=== PATIENT | female | born 1955 | race Caucasian/White ===

== ENCOUNTER 2024-06-18 07:49 | Outpatient (AMB) | payer MEDICARE, SELFPAY ==
--- OUTSIDE RECORDS SUMMARY | 2024-06-18 07:52 | XMS_ITS ---
Author Organization [facility] Address [address] [address] Care Team Providers Care Bottle Selector Name Role Phone Sadaf Buckley Primary Care Provider SKYE Lee Unavailable [phone] Allergies Allergen (clinical drug ingredient) Drug/Non Drug Allergy documented on EMR Reaction Allergy Type Onset Date Status cephalexin Cephalexin Unknown Drug Allergy Activ e Substance with 7-rgiegkw-6-methylgluta ryl-coenzyme A reductase inhibitor mechanism of action (substance) Statins Unknown Drug Allergy Active REASON FOR VISIT annual diabetic follow up Medications Medication SIG (Take, Route, Frequency, Duration) Notes Start Date End Date Status Januvia 100 MG 1 tablet Orally Once a day Not-Taking Levothyroxine Sodium 25 MCG 1 tablet in the morning on an empty stomach Orally Once a day Active Ibuprofen 400 MG 1 tablet with food o r milk as needed Orally every 8 hr prn Active Calcium Active Trulicity 0.75 MG/0.5ML as directed Subcutaneous Active metFORMIN HCl 500 MG 1 tablet with a evan l Orally 3 times daily Active Lisinopril 20 MG 1 tablet Orally Once a day Active Vital Signs Temperature 96.9 degrees Fahrenheit 07/20/19 Heart Rate 84 /min 07/20/2023 Respiratory Rate 20 /min 07/20/2023 Height 5ft 4.5in in 07/20/2023 Weight 224.9 lbs 07/20/2023 BMI 38 kg/m2 07/20/2023 Encounters Encounter Location Date Provider Diagnosis [facility] [address] [address] 07/20/2023 SKYE LAI Type 2 diabetes mellitus with other specified complication E11.69 ; Obesity, unspecified E66.9 ; Flat foot [pes planus] (acquired), right foot M21.41 ; Flat foot [pes planus] (acquired), left foot M21.42 and Fissured skin R23.4 Assessments Encounter Date Diagnosis (ICD Code) Assessment Notes Treatment Notes Treatment Clinical Notes Section Notes 07/20/2023 Type 2 diabetes mellitus with other specified complication (ICD-10 - E11.69) We discussed her annual diabetic check. She has no change in her vascular or neurological status. Discussed with patient regarding proper glucose control, exercise, and diet. Explained to patient proper shoe gear, and importance of daily foot checks. I reviewed neuropathy and why it occurs in diabetics. I educated the patient on proper blood sugar control and the importance of [id number] of less than 7.0%. I reviewed the signs and symptoms of neuropathy with the patient. She has left leg swelling, currently following with vascular surgery. We discussed compression stockings, EVLT procedures, and vein stripping. 07/20/2023 Obesity, unspecified (ICD-10 - E66.9) 07/20/2023 Flat foot [pes planus] (acquired), right foot (ICD-10 - M21.41) We discussed she has no evidence of tendinitis or joint inflammation. She does have a flexible pes planus deformity. We discussed with lack of support, there is tightness in the mornings. Stretching in the mornings is beneficial, and choosing appropriate shoe gear. Reviewed stretching and icing exercises with the patient, handout dispensed, and patient instructed to perform twice daily. Discussed proper shoe gear with the patient. Patient to follow-up in 1 year. 07/20/2023 Flat foot [pes planus] (acquired), left foot (ICD-10 - M21.42) 07/20/2023 Fissured skin (ICD-10 - R23.4) I recommended urea 40% cream for the heels to avoid cracks and fissures. She is in agreement with this plan. Plan Of Treatment Treatment Notes Assessment Notes Fissured skin I recommended urea 4 0% cream for the heels to avoid cracks and fissures. She is in agreement with this plan. Next Appt Details Follow Up: 1 Year, Reason: Provider Name:SKYE LAI, 07/23/2024 10:00:00 AM, [address] [facility] [address], [place], [address], Progress Notes * Nhung HERNANDEZDOB: [birth year] (67 yo F)Acc No.[id number]:07/20/2023 Progress Note Patient:?Nhung HERNANDEZ Provider:?Skye Lai DPM :1955???Age:67 Y???Sex:Female D ate:07/20/2023 Phone: Address:[facility] [address] [id number] Pcp:Sadaf Buckley Subjective: * Chief Complaints: * ???Annual diabetic follow up * HPI: ???Constitutional:? This 67 y/o female returns to my office for a diabetic foot evaluation. She relates aching and soreness in her feet daily. She has flat feet. She notes that she has stopped wearing flip-flops which has helped with the foot soreness. She states it feels worse in the morning. She denies any numbness or tingling in her toes. She does get dry skin over the winter, and admits there were some fissures of the heels. She has been using the cream when this happens and has been soaking the feet occasionally. She has no other foot complaints this visit. Her last hgba1c was 7.6. Her last visit with her PCP care team for diabetes management was last week. Allergies and medical history reviewed. * ROS:?GENERAL: Pt denies nausea, fever, vomiting, chills, or shortness of breath. Pt in NAD. ALLERGY: patient denies any new allergy HEME/ONC: patient denies any bleeding or clotting disorders CARDIOLOGY: pt denies chest pain, palpitations LUNGS: pt denies shortness of breath ABDOMEN: patient denies any bloating, abdominal pain, or swelling MUSCULOSKELETAL: See HPI, otherwise no joint pain or swelling, back pain, or muscle pain. SKIN: see HPI, otherwise no lesions, rash or itching NEURO: No persistent headache, weakness or numbness PSYCH: patient denies any current anxiety or depression The remainder of the review of systems is noncontributory. * Medical History:? * Surgical History:?bx breast; perc needle core w/imag guid neg hx colonoscopy 13 mm sigmoid colon polyp:tubular adenoma 01/29/2009hx knee surgery scope left knee 2011Historical knee surgery scope 12/2015 * Hospitalization/Major Diagno stic Procedure:?vaginal delivery (boy) 1976kidney/bladder infection as a child * Family History:?Father: hear t disease.?Maternal Grand Mother: diabetes mellitus.?Siblings: 2 brothers- heart diseasebrother-kidney and throat cancerbrother- colon cancer.?1 son(s) . .? * Social History:?Tobacco: no Alcohol: no. * Medications:?TakingTrulicity 0.75 MG/0.5ML Solution Pen-injector as directed Subcutaneous Calcium Ibuprofen 400 MG Tablet 1 tablet with food or milk as needed Orally every 8 hr prn Levothyroxine Sodium 25 MCG Tablet 1 tablet in the morning on an empty stomach Orally Once a day Lisinopril 20 MG Tablet 1 tablet Orally Once a day metFORMIN HCl 500 MG Tablet 1 tablet with a meal Orally 3 times daily Taking Trulicity 0.75 MG/0.5ML Solution Pen-injector as directed Subcutaneous Taking Calcium Taking Ibuprofen 400 MG Tablet 1 tablet with food or milk as needed Orally every 8 hr prn Taking Levothyroxine Sodium 25 MCG Tablet 1 tablet in the morning on an empty stomach Orally Once a day Taking Lisinopril 20 MG Tablet 1 tablet Orally Once a day Taking metFORMIN HCl 500 MG Tablet 1 tablet with a meal Orally 3 times daily Not-TakingJanuvia 100 MG Tablet 1 tablet Orally Once a day Medication List reviewed and reconciled with the patientNot-Taking Januvia 100 MG Tablet 1 tablet Orally Once a day Medication List reviewed and reconciled with the patient * Allergies:?CephalexinStatins no[Allergies Verified] Objective: * Vitals:?Wt:224.9lbs, Ht: 5ft 4.5in, BMI:38Index, HR:84/min, Temp:96.9F, RR:20/min, Ht-cm: 163.83, Wt-k.01 kg. * Examination: ???General Examination: ???GENERAL: Patient appears well nourished, with NAD. ?VASCULAR: Dorsalis pedis pulses are 2/4 bilaterally and Posterior tibial pulses are 1/4 bilaterally. Capillary filling time within normal limits the digits. No pallor on elevation or rubor on dependency. Positive hair growth. Varicosities of the legs. Left leg swelling. Denies rest pain or claudication pain. Each foot temperature is within normal limits. ?NEUROLOGICAL: Sharp/dull sensation intact bilaterally, protective sensation intact 10/10 with 5.07 [place] Jennifer bilaterally, vibratory sensation with tuning fork intact to the tibial tuberosity bilaterally, position sense intact bilaterally to the tibial tuberosity. ?ORTHOPEDIC: Good muscle strength 4+/5 of all flexors and extensors. Dorsi flexion of ankle ,0 degrees, plantar flexion WNL. No muscle atrophy. Mild tenderness on palpation along the plantar central arch bilaterally. No pain on dorsiflexion or plantarflexion. ?DERMATOLOGICAL: No masses, openings, or skin lesions noted. Normal skin temperature, normal skin turgor. ?BIOMECHANICS: STJ ROM limited, MTJ ROM limited, 1st MPJ ROM limited. ?SHOES: sneakers. Assessment: * Assessment: 1.?Type 2 diabetes mellitus with other specified complication - E11.69 (Primary)?2.?Obesity, unspecified - E66.9?3.?Flat foot [pes planus] (acquired), right foot - M21.41 4.?Flat foot [pes planus] (acquired), left foot - M21.42?5.?Fissured skin - R23.4? Plan: * Treatment: 2.?Flat foot [pes planus] (a cquired), right foot? Clinical Notes: We discussed she has no evidence of tendinitis or joint inflammation. She does have a flexible pes planus deformity. We discussed with lack of support, there is tightness in the mornings. Stretching in the mornings is beneficial, and choosing appropriate shoe gear. Reviewed stretching and icing exercises with the patient, handout dispensed, and patient instructed to perform twice daily. Discussed proper shoe gear with the patient. Patient to follow-up in 1 year.?? 3.?Fissured skin? Notes: I recommended urea 40% cream for the heels to avoid cracks and fissures. She is in agreement with this plan. ?? * Procedure Codes:? * Follow Up:?1 Year * Billing Information: * Visit Code:? 58073 Office Visit, Est Pt., Level 3. * Procedure Codes:? * Sign off status: Completed true * Provider:Roberta Lai DPM Date:? 07/20/2023 Generated for Fani delaney/Megan/eTransmitting on:?06/18/2024 07:52 AM EDT History and Physical Notes * HPI (History of Present Illness) Category Sub-Category Detail Notes Category Not es Constitutional This 67 y/o f kane returns to my office for a diabetic foot evaluation. She relates aching and soreness in her feet daily. She has flat feet. She notes that she has stopped wearing flip-flops which has helped with the foot soreness. She states it feels worse in the morning. She denies any numbness or tingling in her toes. She does get dry skin over the winter, and admits there were some fissures of the heels. She has been using the cream when this happens and has been soaking the feet occasionally. She has no other foot complaints this visit. Her last hgba1c was 7.6. Her last visit with her PCP care team for diabetes management was last week. Allergies and medical history reviewed. Examination Category Sub-Category Detail Notes Category Not es General Examination GENERAL: Patient appears well nourished, with NAD. VASCULAR: Dorsalis pedis pulses are 2/4 bilaterally and Posterior tibial pulses are 1/4 bilaterally. Capillary filling time within normal limits the digits. No pallor on elevation or rubor on dependency. Positive hair growth. Varicosities of the legs. Left leg swelling. Denies rest pain or claudication pain. Each foot temperature is within normal limits. NEUROLOGICAL: Sharp/dull sensation intact bilaterally, protective sensation intact 10/10 with 5.07 [place] Jennifer bilaterally, vibratory sensation with tuning fork intact to the tibial tuberosity bilaterally, position sense intact bilaterally to the tibial tuberosity. ORTHOPEDIC: Good muscle strength 4+/5 of all flexors and extensors. Dorsi flexion of ankle ,0 degrees, plantar flexion WNL. No muscle atrophy. Mild tenderness on palpation along the plantar central arch bilaterally. No pain on dorsiflexion or plantarflexion. DERMATOLOGICAL: No masses, openings, or skin lesions noted. Normal skin temperature, normal skin turgor. BIOMECHANICS: STJ ROM limited, MTJ ROM limited, 1st MPJ ROM limited. SHOES: sneakers
--- OUTSIDE RECORDS SUMMARY | 2024-06-18 07:52 | XMS_ITS | Clinical Summary ---
Author Organization [facility] [address] [facility] Address [address] [facility] [place] [address] Phone Care Team Providers Care Pocket Cutter Name Role Phone Sadaf Buckley MD Primary Care Provider [phone] Allergies Active Allergy Reactions Criticality Noted Date Comments Atorvastatin Low 08/10/2023 Reflux, severe Cephalexin Nausea And Vomiting 10/18/2006 Sensitivity with this medication. Cqhbzsm-Ikp-Uup Reductase Inhibitors 09/14/2017 Elevated LFTS Medications nystatin-triamc inolone (MYCOLOG II) ointment Apply a thin layer to affected area twice weekly 09/18/2023 Active FREESTYLE LANCETS MISC Test blood sugar once daily E11.9 12/13/2022 Active blood sugar diagnostic (FreeStyle Lite Strips) test strip Test blood sugar once daily E11.9 12/13/2022 Active ibuprofen (ADVIL,MOTRIN) 400 mg tablet Take 1 Tablet by mouth every 8 hours as needed. Active calcium carbonate/vitam in D3 (CALCIUM + D ORAL) Take 2,000 mg by mouth daily. Active levothyroxine (SYNTHROID, LEVOTHROID) 25 mcg tablet Take 1 tablet (25 mcg total) by mouth 1 (one) time each day. 90 tablet 1 01/17/2024 Active lisinopriL (PRINIVIL,ZESTR IL) 20 mg tablet Take 1 tablet (20 mg total) by mouth 1 (one) time each day. 90 tablet 1 01/17/2024 Active metFORMIN (GLUCOPHAGE) 500 mg tablet Take 1 tablet (500 mg total) by mouth 1 (one) time each day with breakfast. 02/11/2024 Active dulaglutide (TRULICITY) 3 mg/0.5 mL pen injector injectionIndica tions:Type 2 diabetes mellitus with obesity ([facility] V24, [facility] V28) Inject 0.5 mL (3 mg total) under the skin every 7 (seven) days. 6 mL 1 04/24/2024 Active Active Problems Problem Noted Date Diagnosed Date Osteopenia 02/20/2023 Severe obesity (BMI 35.0-35. 9 with comorbidity) ([facility] V24, [facility] V28) 03/06/2019 Lichen sclerosus 08/13/2018 Overview (12/06/2023): Last Assessment & Plan: Reviewed findings with patient. Overall well controlled. Could be starting to develop a fissure in right ILS. She was encouraged to pay close attention there and use a skin barrier when working in the yard to avoid irritation and worsening skin. She agreed. Type 2 diabetes mellitus wit h obesity ([facility] V24, [facility] V28) 09/14/2017 Polycystic liver disease 06/20/2014 Degenerative disc disease, lumbar 05/18/2014 Compression fracture of T12 vertebra ([facility] V24, [facility] V28) 04/13/2014 Sciatica 12/03/2012 Overview (12/06/2023): Herniated L4-5 disc on left, MRI, 11/14/2012 Nuclear sclerosis 04/17/2011 Overview (12/06/2023): Noted by Dr. Oliveira on 10/21/2010 exam. Hyperlipidemia 01/04/2009 Hypertension 04/25/2005 Hypothyroidism 04/25/2005 Overview (12/06/2023): Hyperthyroidism, ablated with 22.8 mCi of iodine-131 on 12/29/2009 Encounters Date Type Department Care Team Description 05/20/2024 8:20 AM EDT Office Visit Endocrinology [address] [phone] Cami Dennis PA Type 2 diabetes mellitus with obesity ([facility] V24, [facility] V28) (Primary Dx); Postablative hypothyroidism; Hyperlipidemia, unspecified hyperlipidemia type; Primary hypertension from Last 3 Months Immunizations Name Administration Dates Next Due COVID-19 (Moderna/Spikevax) 12yo and older 2021 Influenza Quadravalent, MDCK , 0.5ml, preservative free (Flucelvax) 6mo and older 03/06/2019,01/09/2018 Influenza Quadravalent, MDCK , 0.5ml, with preservative (Flucelvax) 6mo and older 01/04/2017 Influenza trivalent, 0.5mL ( Fluzone High-dose) 65yo and older 02/20/2023,12/06/2021,01/12/2021 Influenza trivalent, with pr eservative (Fluzone; Afluria) 6mo and older 12/20/2015,12/20/2015,12/14/2014,12/14,12/10/2013,12/10/2013,12/03/2012 ,12/03/2012,11/27/2011,11/27/2011,10/28 ,11/15/2010,03/19/2009, 0 Pfizer (ages 12 & older) Biv alent, COVID-19 2021 Pfizer (ages 12 & older) MORTEZA S-CoV-2 COVID-19, mRNA, LNP-S, raz-sucrose, preservative free 06/21/2021 Pfizer SARS-CoV-2 COVID-19, mRNA, LNP-S, preservative free 06/21/2021 Pneumococcal conjugate 13 va lent (Prevnar 13, PCV13) 2mo and older 06/12/2019 Pneumococcal polysaccharide 23 valent (Pneumovax 23) 2yo and older 08/18/2022,10/16/2007 Td Tetanus diptheria (Tdvax) 7yo and older 04/19/2022,04/25/2005 Td Tetanus diptheria, preser vative free (Tenivac) 7yo and older 04/19/2022 Tdap Tetanus diptheria acell ular pertussis (Boostrix; Adacel) 7yo and older 04/01/2012 Zoster Live 08/12/2015,08/12/2015 Zoster recombinant (Shingrix ) 19yo and older 09/11/2021,07/12/2021 Surgical History Surgery Date Site/Laterality Comments COLONOSCOPY 01/29/2009 PROCEDURE: HISTORICAL COLONOSCOPY; COMMENT: 13 mm sigmoid colon polyp: Tubular adenoma KNEE SURGERY 2011 PROCEDURE: HISTORICAL KNEE SURGERY; COMMENT: scope l knee COLONOSCOPY 03/08/2012 PROCEDURE: HISTORICAL COLONOSCOPY; COMMENT: no polyps KNEE SURGERY 12/2015 Left PROCEDURE: HISTORICAL KNEE SURGERY; COMMENT: scope COLONOSCOPY 08/23/2017 PROCEDURE: HISTORICAL COLONOSCOPY; COMMENT: no polyps BREAST BIOPSY PROCEDURE: BX BREAST; PERC NEEDLE CORE W/IMAG GUID; COMMENT: neg Medical History Medical History Date Comments Type II or unspecified type diabetes mellitus with unspecified complication, not stated as uncontrolled DX:Type II or unspecified ty pe diabetes mellitus with unspecified complication, not stated as uncontrolled Heart disease, unspecified DX:He art disease, unspecified Unspecified essential hypertension DX:Unspecified essential hypertension Unspecified disorder of thyroid DX:Unspecified disorder of thyroid History of colon polyps 01/29/2009 DX:Histo ry of colon polyps; COMMENT: 13-mm sigmoid colon polyp removed at colonoscopy 01/29/2009: Tubular adenoma. Negative colonoscopy 03/08/2012, no colon cancer screening needed for 5 years. Family History Medical History Relation Name Comments Colon cancer Brother 1 Emmanuel s/p CVA age 71 Coronary artery disease Brother 2 Eleazar pace maker Coronary artery disease Brother 3 Constantine s/p 2 stents Throat cancer Brother 4 Merval and renal canc er; non-smoker Esophageal cancer Father CABG Half-Brother quintruple bypa ss Diabetes Maternal Grandmother Stroke Mother dementia Breast cancer Mother's side great GM Relation Name Status Comments Brother 1 Emmanuel (Age 71) Brother 2 Eleazar Alive Brother 3 Constantine Alive Brother 4 Merval Alive Father Half-Brother Maternal Grandfather Maternal Grandmother Mother Mother's side great GM Paternal Grandfather Paternal Grandmother Social History Tobacco Use Types Packs/Day Years Used Date Smoking Tobacco: Former Cigarettes 1.5 20.2 1 - 02/26/1995 Smokeless Tobacco: Never Tobacco Cessation:Counseling Given: Not Answered Alcohol Use Standard Drinks/Week Comments No 0 (1 standard drink = 0.6 oz pur e alcohol) Comments Unknown Sex and Gender Information Value Date Recorded Sex Assigned at Not on file Legal Sex Female 11:21 AM EST Gender Identity Not on file Sexual Orientation Not on file Obstetrics History Last Filed Vital Signs Vital Sign Reading Time Taken Comments Blood Pressure 116/48 02/11/2024 8:54 AM EST Pulse 84 05/20/2024 8:17 AM EDT Temperature 35.8 ??C (96.4 ??F) 05/20/2024 8:17 AM ED T Respiratory Rate 16 02/11/2024 8:54 AM EST Oxygen Saturation 95% 05/20/2024 8:17 AM EDT Inhaled Oxygen Concentration - - Weight 94.3 kg (207 lb 12.8 oz) 05/20/2024 8:17 AM EDT Height 165.1 cm (5' 5 ) 05/20/2024 8:17 AM EDT Body Mass Index 34.58 05/20/2024 8:17 AM EDT Plan of Treatment Upcoming Encounters Date Type Department Care Team (Late st Contact Info) Description 08/12/2024 8:15 AM EDT Office Visit [facility] - [address] [phone] Sadaf Buckley MD [address] [place] [address] 11/14/2024 7:30 AM EDT Appointment Radiology Department - [address] [phone] 12/19/2024 8:20 AM EDT Office Visit Endocrinology - [address] [phone] Cami Dennis PA [address] [place] [address] Health Maintenance Due Date Last Done Comments RSV Immunization Adult Patients (1 - Risk 60-74 years 1-dose series) 2013 Social Influencers of Health Screening 02/04/2022 COVID-19 Vaccine ( season) 2023 12/16/2022, 2021, 2021, Additional history exists Falls Risk Assessment 02/21/2024 02/20/2023 Depression Screening 08/09/2024 08/10/2023 Medicare Annual Wellness Visit 08/09/2024 08/10/2023 Colorectal Cancer Screening: Colonoscopy 08/23/2024 08/23/2017 Diabetes: Annual Urine Albumin-Creatinine Ratio (uACR) 10/10/2024 10/11/2023 Diabetes: Annual Retina Eye Exam 10/10/2024 10/11/2023 Diabetes: Annual Foot Exam 10/16/2024 10/17/2023 Influenza Vaccine (Season Ended) 2024 02/20/2023, 12/06/2021, 01/12/2021, Additional history exists Diabetes: Blood Sugar Control Test (HGBA1C) 11/16/2024 05/16/2024, 01/17/2024, 10/11/2023, Additional history exists Diabetes: Annual GFR (Glomerular Filtration Rate) 05/16/2025 05/16/2024, 10/11/2023, 10/11/2023 Hypertension/CHF/CAD Annual BMP Blood Test 05/16/2025 05/16/2024, 10/11/2023, 10/11/2023 Breast Cancer Screening 11/07/2025 11/08/19 24, 11/08/2023, 11/01/2022, Additional history exists Cholesterol Screening (Lipid Panel) 05/16/2029 05/16/2024, 02/21/2023 Osteoporosis Screening (Bone Density Screening) 12/30/2030 12/30/2020 DTaP,Tdap,and Td Vaccines (5 - Td or Tdap) 04/19/2032 04/19/2022, 04/19/2022, 04/01/2012, Additional history exists Hepatitis C Screening Completed 08/01/2012 Zoster Vaccines Completed 09/11/2021, 06/26, 08/12/2015, Additional history exists Pneumococcal Vaccine: 50+ Years Completed 08/18/2022, 06/12/2019, 10/16/2007 HIB Vaccines Aged Out No longer eligi ble based on patient's age to complete this topic HPV Vaccines Aged Out No longer eligi ble based on patient's age to complete this topic Hepatitis A Vaccines Aged Out No long er eligible based on patient's age to complete this topic Hepatitis B Vaccines Aged Out No long er eligible based on patient's age to complete this topic IPV Vaccines Aged Out No longer eligi ble based on patient's age to complete this topic MMR Vaccines Aged Out No longer eligi ble based on patient's age to complete this topic Meningococcal ACWY Vaccine Aged Out N o longer eligible based on patient's age to complete this topic Meningococcal B Vaccine Aged Out No l onger eligible based on patient's age to complete this topic RSV Immunization Patients Under 20 months Aged Out No longer eligible based on patient's age to complete this topic Varicella Vaccines Aged Out No longer eligible based on patient's age to complete this topic Procedures Procedure Name Priority Date/Time Associated Diagnosis Comments HEMOGLOBIN A1C Routine 05/16/2024 8:33 AM EDT Type 2 diabetes mellitus with obesity ([facility] V24, [facility] V28) LIPID PANEL WITH REFLEX TO DIRECT LDL Routine 05/16/2024 8:33 AM EDT Hyperlipidemia, unspecified hyperlipidemia type BASIC METABOLIC PANEL Routine 05/16/2024 8:33 AM EDT Primary hypertension SCREENING MAMMOGRAPHY BI 2-VIEW BREAST INC CAD Routine 11/08/2023 7:54 AM EDT Encounter for screening mammogram for malignant neoplasm of breast DIABETES FOOT EXAM Routine 10/17/2023 URINE ALBUMIN CREATININE RATIO Routine 10/11/2023 DEPRESSION SCREENING Routine 08/10/2023 FALLS RISK ASSESSMENT Routine 02/20/2023 DXA BONE DENSITY STUDY 1+ SITS AXIAL SKEL Routine 12/30/2020 9:36 AM EDT Asymptomatic menopausal state COLONOSCOPY Routine 08/23/2017 HEPATITIS C SCREENING Routine 08/01/2012 from Last 3 Months or Most Recently Relevant to Health Maintenance Results * (ABNORMAL) Lipid panel with reflex to direct LDL (05/16/2024 8:33 AM EDT) Cholesterol 226(H) 0 - 200 mg/dL LAB CHEMISTRY METHOD 05/16/2024 10:45 AM EDT [facility] Triglycerides 121 0 - 150 mg/dL LAB CHEMISTRY METHOD 05/16/2024 10:45 AM EDT [facility] HDL 67 >=40 mg/dL LAB CHEMISTRY METHOD 05/16/2024 10:45 AM EDT [facility] LDL Calculated 135(H) 0 - 100 mg/dL LAB CHEMISTRY METHOD 05/16/2024 10:45 AM EDT [facility] VLDL Cholesterol Brian 24.2 mg/dL LAB CHEMISTRY METHOD 05/16/2024 10:45 AM EDT [facility] Non HDL Chol. (LDL+VLDL) 159(H) <145 mg/dL LAB CHEMISTRY METHOD 05/16/2024 10:45 AM EDT [facility] Chol/HDL Ratio 3.4 0.0 - 4.4 LAB CHEMISTRY METHOD 05/16/2024 10:45 AM T [facility] Blood Venous blood specimen / Unknown Venipuncture / Unknown 05/16/2024 8:33 AM EDT 05/16/2024 8:33 AM EDT us Cami NATHAN LAB BLOOD ORDERABLES Final Resul t [facility] [address] [place] [address], * (ABNORMAL) Hemoglobin A1c (05/16/2024 8:33 AM EDT) Hemoglobin A1C 7.0(H) <6.5 % LAB CHEMISTRY METHOD 05/16/2024 11:17 AM EDT [facility] Mean Bld Glu Estim. 154 mg/dL LAB CHEMISTRY METHOD 05/16/2024 11:17 AM [facility] Blood Venous blood specimen / Unknown Venipuncture / Unknown 05/16/2024 8:33 AM EDT 05/16/2024 8:33 AM EDT us Cami NATHAN LAB BLOOD ORDERABLES Final Resul t [facility] [address] [place] [address], [place] [phone] * (ABNORMAL) Basic metabolic panel (05/16/2024 8:33 AM EDT) Sodium 140 133 - 145 mmol/L LAB CHEMISTRY METHOD 05/16/2024 10:44 AM [facility] Potassium 4.8 3.5 - 5.5 mmol/L LAB CHEMISTRY METHOD 05/16/2024 10:44 AM [facility] Chloride 104 96 - 110 mmol/L LAB CHEMISTRY METHOD 05/16/2024 10:44 AM [facility] CO2 30 21 - 32 mmol/L LAB CHEMISTRY METHOD 05/16/2024 10:44 AM [facility] Anion Gap 6 3 - 11 LAB CHEMISTRY METHOD 05/16/2024 10:44 AM [facility] Glucose 118(H) 70 - 100 mg/dL LAB CHEMISTRY METHOD 05/16/2024 10:44 AM [facility] BUN 12 5 - 25 mg/dL LAB CHEMISTRY METHOD 05/16/2024 10:44 AM [facility] Creatinine 0.60 0.50 - 1.10 mg/dL LAB CHEMISTRY METHOD 05/16/2024 10:44 AM [facility] eGFR 97 >=60 mL/min/1. 73m2 LAB CHEMISTRY METHOD 05/16/2024 10:44 AM [facility] Comment:Calculation based on the??Chronic Kidney Disease Epidemiology Collaboration (CKD-EPI) equation refit??without adjustment for race. BUN/Creatinine Ratio 20.0 LAB CHEMISTRY METHOD 05/16/2024 10:44 AM EDT [facility] Calcium 9.6 8.5 - 10.5 mg/dL LAB CHEMISTRY METHOD 05/16/2024 10:44 AM EDT [facility] Blood Venous blood specimen / Unknown Venipuncture / Unknown 05/16/2024 8:33 AM EDT 05/16/2024 8:33 AM EDT us Cami NATHAN LAB BLOOD ORDERABLES Final Resul t [facility] [address] [place] [address], [place] [phone] * SCREENING MAMMOGRAPHY BI 2-VIEW BREAST INC CAD (11/08/2023 7:54 AM EDT) Anatomical Region Laterality Modality Radiographic Maddison ging 11/01/2022 7:36 AM EDT Narrative 11/08/2023 3:40 PM EDT This is a summary report. The complete report is available in the patient's medical record. If you cannot access the medical record, please contact the sending organization for a detailed fax or copy. BILATERAL 3D DIGITAL SCREENING MAMMOGRAM History: Routine screening. ??No current breast complaints. ??Family history of breast cancer Comparison: Multiple priors dating back to 10/21/2019 Technique: Bilateral full-field digital 3D mammography was performed using standard CC and MLO projections CAD was used to evaluate this mammogram. Findings: Density: ??There are scattered areas of fibroglandular density-B RIGHT: No suspicious masses, groups of microcalcification or areas of architectural distortion identified. Stable typically benign parenchymal asymmetries LEFT: No suspicious masses, groups of microcalcifications or areas of architectural distortion identified. Stable typically benign parenchymal asymmetries] IMPRESSION: : 1. ??No mammographic evidence of malignancy. BI-RADS Category 2 benign findings Recommendation: Routine annual screening mammography is recommended [facility] [address] [address] Procedure Note Jonn Raymond MD - 12/12/2023 This is a summary report. The complete report is available in thepatient's medical record. If you cannot access the medical record, pleasecontact the sending organization for a detailed fax or copy. BILATERAL 3D DIGITAL SCREENING MAMMOGRAM History: Routine screening. No current breast complaints. Family historyof breast cancer Comparison: Multiple priors dating back to 10/21/2019 Technique: Bilateral full-field digital 3D mammography was performed usingstandard CC and MLO projections CAD was used to evaluate this mammogram. Findings: Density: There are scattered areas of fibroglandular density-B RIGHT: No suspicious masses, groups of microcalcification or areas ofarchitectural distortion identified. Stable typically benign parenchymalasymmetries LEFT: No suspicious masses, groups of microcalcifications or areas ofarchitectural distortion identified. Stable typically benign parenchymalasymmetries] IMPRESSION: : 1. No mammographic evidence of malignancy. BI-RADS Category 2 benign findings Recommendation: Routine annual screening mammography is recommended [address] [address] Result [facility] Yennifer Geronimo MD IMG XR PROCEDURES Final Res ult * Diabetes Foot Exam (10/17/2023) [facility] Diabetes: Annual Foot Exam Abstracted Result [facility] Provider HEALTH MAINTENANCE Final Result * Urine Albumin Creatinine Ratio (10/11/2023) [facility] Urine Albumin Creatinine Ratio Abstracted Result [facility] Provider HEALTH MAINTENANCE Final Result * Depression Screening (08/10/2023) [facility] Depression Screening Abstracted Result [facility] Provider HEALTH MAINTENANCE Final Result * Falls Risk Assessment (02/20/2023) [facility] Falls Risk Assessment Abstracted Result [facility] Historical Provider HEALTH MAINTENANCE Final Result * DXA BONE DENSITY STUDY 1+ SITS AXIAL SKEL (12/30/2020 9:36 AM EDT) Anatomical Region Laterality Modality Bone Densitometr y 09/09/2020 9:54 AM EDT Narrative 12/30/2020 12:50 PM EDT BONE DENSITY (DEXA) ? Lumbar Spine T-score is -1.3. ?? (SD relative to 20-29 y/o adult) Z-score is 0.6. ??(SD relative to age matched peers) This is considered osteopenia by WHO criteria. Left Hip T-score is -1.0. Z-score is 0.6. This is considered osteopenia by WHO criteria. Lateral view of the spine demonstrates moderate to severe compression of the T12 vertebral body, unchanged from 07/01/2014. ?? IMPRESSION: In the absence of trauma, compression fracture of a vertebral body is considered presumptive evidence of osteoporosis. [facility] Department of Internal Medicine recommends using National Osteoporosis Foundation (NOF) guidelines in treatment decisions related to osteoporosis. NOF guidelines suggest considering treatment for postmenopausal women and men aged 50 or older presenting with the following: History of hip or vertebral fracture. T-score = -2.5 (DXA) at the femoral neck, total hip, or spine, after appropriate evaluation to exclude secondary causes. Low bone mass (T-score between -1.0 and -2.5 at the femoral neck or spine) AND a 10-year probability of a hip fracture = 3% OR a 10-year probability of a major osteoporosis-related fracture = 20% based on the [place]-adapted WHO algorithm Please note that all treatment decisions require clinical judgment and consideration of individual patient factors, including patient preferences, co-morbidities, previous drug use, risk factors not captured in the FRAX model (e.g., frailty, falls, vitamin D deficiency, increased bone turnover, interval significant decline in bone density) and possible under- or over-estimation of fracture risk by FRAX. Optional alternative screening schedule based on jin Callaway., [facility] March 16, 2011 for patients with osteopenia (based on hip BMD T-score) is as follows: * ??advanced osteopenia (T scores -2.00 to -2.49), BMD testing every year * ??moderate osteopenia (T scores -1.50 to -1.99), BMD testing every 5 years mild osteopenia or normal BMD (T scores -1.50 and higher), BMD testing every 15 years Procedure Note Valentina Carrero MD - 02/14/2022 BONE DENSITY (DEXA) Lumbar Spine T-score is -1.3. (SD relative to 20-29 y/o adult) Z-score is 0.6. (SD relative to age matched peers) This is considered osteopenia by WHO criteria. Left Hip T-score is -1.0. Z-score is 0.6. This is considered osteopenia by WHO criteria. Lateral view of the spine demonstrates moderate to severe compression ofthe T12 vertebral body, unchanged from 07/01/2014. IMPRESSION: In the absence of trauma, compression fracture of a vertebral body isconsidered presumptive evidence of osteoporosis. [facility] Department of Internal Medicine recommendsusing National Osteoporosis Foundation (NOF) guidelines in treatment decisions related toosteoporosis. NOF guidelines suggest considering treatment for postmenopausal women and menaged 50 or older presenting with the following: History of hip or vertebral fracture. T-score = -2.5 (DXA) at the femoral neck, total hip, or spine, afterappropriate evaluation to exclude secondary causes. Low bone mass (T-score between -1.0 and -2.5 at the femoral neck or spine)AND a 10-year probability of a hip fracture = 3% OR a 10-year probability of a majorosteoporosis-related fracture = 20% based on the [place]-adapted WHO algorithm Please note that all treatment decisions require clinical judgment andconsideration of individual patient factors, including patient preferences, co- morbidities,previous drug use, risk factors not captured in the FRAX model (e.g., frailty, falls, vitaminD deficiency, increased bone turnover, interval significant decline in bone density) andpossible under- or over-estimation of fracture risk by FRAX. Optional alternative screening schedule based on jin Callaway., [email or web address] for patients with osteopenia (based on hip BMD T-score) is as follows: * advanced osteopenia (T scores -2.00 to -2.49), BMD testing every year * moderate osteopenia (T scores -1.50 to -1.99), BMD testing every 5years mild osteopenia or normal BMD (T scores -1.50 and higher), BMD testingevery 15 years Cami NATHAN IMG DXA PROCEDURES Final Result * Colonoscopy (08/23/2017) [facility] Colonoscopy No interpretation , Abstracted Anatomical Region Laterality Modality Other Historical Provider HEALTH MAINTENANCE Final Result * Hepatitis C Screening (08/01/2012) [facility] Hepatitis C Screening Abstracted Historical Provider HEALTH MAINTENANCE Final Result from Last 3 Months or Most Recently Relevant to Health Maintenance Insurance [employer] Care Teams Pocket Cutter Relationship Specialty Start Date End Date Sadaf Buckley MD [address] [place] [id number] PCP - General Internal Medicine 09/10/19
--- OUTSIDE RECORDS SUMMARY | 2024-06-18 07:52 | XMS_ITS ---
Author Organization [facility] Address [address] [address] Care Team Providers Care Branch Store Manager Name Role Phone Sadaf Buckley Primary Care Provider DUANE Lee Unavailable [phone] REASON FOR VISIT annual diabetic follow up Encounters Encounter Location Date Provider Diagnosis [facility] [address] [address] 05/16/2023 DUANE LAI Plan Of Treatment Next Appt Details Provider Name:DUANE LAI, 07/23/2024 10:00:00 AM, [address] [address], [place], [address], Progress Notes * Nhung HERNANDEZDOB: (68 yo F)Acc No.[id number]:05/16/2023 Progress Note Patient:Nhung STEVENSON Provider:Roberta Lai DPM :1955???Age:67 Y???Sex:Female D ate:05/16/2023 Phone: Address:[facility] [address] [id number] Pcp:Sadaf Buckley Subjective: * Chief Complaints: * ???1. Annual diabetic follow up. * Medical History:? Objective: * Vitals:? Assessment: Plan: * Treatment: * Billing Information: * Visit Code:? * Procedure Codes:? * Electronic signature of FARZANA LAI D.P.M on 06/18/2024 at 07:51 AM EDT Sign off status: Pending * Provider:Roberta Lai DPM Date:? 05/16/2023 Generated for Fani delaney/Megan/eTransmitting on:?06/18/2024 07:51 AM EDT
--- OUTSIDE RECORDS SUMMARY | 2024-06-18 07:52 | XMS_ITS | Patient Health Record ---
Author Organization [facility] Address [address] [address] Care Team Providers Care Brokerage Purchase And Sale Clerk Name Role Phone Marcio Sadaf Primary Care Provider DUANE Lee Unavailable [phone] Allergies Allergen (clinical drug ingredient) Drug/Non Drug Allergy documented on EMR Reaction Allergy Type Onset Date Status cephalexin Cephalexin Unknown Drug Allergy Activ e Substance with 5-acoolov-4-methylgluta ryl-coenzyme A reductase inhibitor mechanism of action (substance) Statins Unknown Drug Allergy Active Reason For Referral No Information Medications Medication SIG (Take, Route, Frequency, Duration) Notes Start Date End Date Status Januvia 100 MG 1 tablet Orally Once a day Not-Taking metFORMIN HCl 500 MG 1 tablet with a evan l Orally 3 times daily Active Lisinopril 20 MG 1 tablet Orally Once a day Active Levothyroxine Sodium 25 MCG 1 tablet in the morning on an empty stomach Orally Once a day Active Ibuprofen 400 MG 1 tablet with food o r milk as needed Orally every 8 hr prn Active Calcium Active Trulicity 0.75 MG/0.5ML as directed Subcutaneous Active Problems Problem Type SNOMED Code ICD Code Onset Dates Problem Status W/U Status Risk Notes Problem 47228003 Type 2 diabetes mellitus with other specified complication (E11.69) Active confirmed Problem 977560131 Obesity, unspecified (E66.9) Active confirmed Vital Signs Heart Rate 84 /min 07/20/2023 Temperature 96.9 degrees Fahrenheit 07/20/2023 Respiratory Rate 20 /min 07/20/2023 Height 5ft 4.5in in 07/20/2023 Weight 224.9 lbs 07/20/2023 BMI 38 kg/m2 07/20/2023 Encounters Encounter Location Date Provider Diagnosis [facility] [address] [address] 07/20/2023 DUANE NGUYEN Type 2 diabetes mellitus with other specified [...] blood sugar control and the importance of yjWyXX1g of less than 7.0%. I reviewed the [...] agreement with this plan. Plan Of Treatment Pending Test Test Name Order Date X ray : Foot, left 3v 05/17/2020 Next Appt Details Provider Name:DUANE NGUYEN, 07/23/2024 10:00:00 AM, [address] [facility], [place], [address], Insurance Providers Payer Name Payer Address Payer Phone Subscriber Number Group Number Insured Name Patient Relationship to Insured Coverage Start Date Coverage End Date [facility] [address] [facility] [place] [phone] [id number] Nhung Berkowitz Self - patient is the insured Medical (General) History Medical History History ICD Code Age-related nuclear cataract, unspecifie d eye H25.10 Morbid obesity E66.01 Lichen sclerosus et atrophicus L90.0 Type 2 diabetes mellitus with hyperglyce pura E11.65 Morbid (severe) obesity due to excess ca lories E66.01 Cystic disease of liver Q44.6 Other intervertebral disc degeneration, lumbar region M51.36 Wedge compression fracture o f T11-T12 vertebra, initial encounter for closed fracture S22.080A Sciatica, unspecified side M54.30 Personal history of colonic polyps Z86.0 10 Hyperlipidemia, unspecified E78.5 Essential hypertension I10 Hypothyroidism, unspecified E03.9 COVID vaccinated X 5 Surgical History Surgery Date(Month/Year) bx breast; perc needle core w/imag guid neg hx colonoscopy 13 mm sigmoid colon polyp :tubular adenoma 01/29/2009 hx knee surgery scope left knee 2011 Historical knee surgery scope 12/2015 Hospitalization History Reason Date(Month/Year) kidney/bladder infection as a child vaginal delivery (boy) 1975
--- NOTE | 2024-06-18 08:40 | A.OFFVIS_ITS ---
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 She is a pleasant 68-year-old female with prior history of hyperlipidemia for many years and known and has been tried on several statins in the past with associated side effects. She has not had any rhabdomyolysis with statins but most of the statins tried she said 3 different statins had led to side effects and discontinuation of therapy. She also has history of diabetes, hypertension, hypothyroidism. Over the last several months she has been getting when she walks the dog in the cool weather she gets bilateral shoulder tightness in his scapular region. Symptoms never happen at rest. They always happen with activity. The symptoms only of recent onset. No other cardiac symptoms. No prolonged palpitation irregular heartbeat. No lightheadedness, syncope. No worsening shortness of breath, orthopnea, PND. She was referred here for further management. She has never had prior cardiac events for issues. This is the 1st EKG she has had today. Family history positive for coronary artery disease in his father and her siblings [facility] Medical History Hyperlipidemia HTN (hypertension) Diabetes Surgical History H/O knee surgery Family History Maternal Grandmother Diabetes Father Stroke Cancer Heart problem Mother No problems noted. Social History Alcohol intake: never Patient Tobacco Use Status: Never used Tobacco Review of Systems Const Denies weakness ENT Denies dizziness Card Denies chest pain, Denies chest pain with activity, Denies syncope, Denies rapid heart rate, Denies pedal edema, Denies edema, Denies leg edema, Denies lightheadedness, Denies palpitations, Denies dyspnea, Denies dyspnea on exertion and Denies orthopnea Resp Denies cough, Denies dyspnea and Denies dyspnea on exertion GI Denies hematochezia and Denies change in stool character Musc Denies abnormal gait, Reports arthralgias, Denies muscle cramps, Denies muscle weakness, Denies numbness, Denies radiating pain into limb and Denies tingling Neuro Denies abnormal gait, Denies dizziness, Denies syncope, Denies numbness, Denies tingling and Denies weakness Endo Denies palpitations Physical Exam Vital Signs: Last Vital Signs Pulse 75 06/18/24 08:41 BP 120/62 06/18/24 08:41 BMI result Body Mass Index 35.2 Const General: cooperative, comfortable, no acute distress, well developed, alert, awake and Physically active Nutritional Appearance: well nourished and obese Orientation/consciousness: patient oriented x3 Limitations: no limitations HEENT Head: Yes normocephalic and Yes atraumatic Neck Neck: Yes trachea midline, Yes supple and Yes no JVD Carotids: no bruits Resp Effort & Inspection: normal respiratory effort Auscultation: clear to auscultation bilaterally Cardio Jugular venous distension: no JVD Palpation: normal PMI Rate: regular rate Rhythm: regular rhythm Heart sounds: S1 normal heart sound present, S2 normal heart sound present, no click, no gallops, no murmurs and no rubs GI Auscultation: normal bowel sounds Skin General skin exam: no rashes or lesions noted Neuro General: patient oriented x3 and no focal motor deficits Extrem General: Yes no clubbing, cyanosis or edema Psych Appearance: grossly normal Office Procedures EKG Details: EKG shows normal sinus rhythm with wide QRS complex consistent with intraventricular conduction block with a left bundle-branch morphology [id number]-Kenolcleuzfrhrlza, Complete Assessment & Plan Assessment & Plan (1) Exertional chest pain: Code(s): R07.9 - Chest pain, unspecified Category: Medical Plan: Exertional chest pain in this elderly woman with significant risk factors including uncontrolled hyperlipidemia for many years, diabetes, hypertension, family history of coronary disease as well as aging. Patient only has had symptoms of recent onset and happen only with exertion with no rest symptoms. She has EKG findings suggestive of left bundle-branch block. High likelihood of underlying obstructive coronary artery disease was discussed with her. We suggest further workup including an urgent vasodilating myocardial perfusion imaging that will be performed in near future. Meanwhile I have advised her to avoid strenuous exertion. She can continue with a day-to-day life. I have advised her to start low-dose aspirin therapy and also started on metoprolol therapy to reduce myocardial ischemic burden. Also suggest to continue her other medications. Will obtain lipid panel from your office to and will most likely need PCSK9 inhibitor therapy given her sensitivity to statin therapy in the past to reduce future cardiovascular risk. Also suggest an echocardiogram given left bundle-branch block to evaluate for hypertensive heart disease as well as LV systolic and diastolic function to evaluate for pulmonary hypertension. These tests will be scheduled in near future. Will follow up in the clinic in 4 weeks time, sooner p.r.n.. Thank you for allowing me to partake in her care Orders: Orders CA echo transthoracic complete Today R07.9 - Chest pain, unspecified CA lexiscan stress w ashlie Today R07.9 - Chest pain, unspecified Medications: New aspirin (Ecotrin Low Strength) 81 mg PO DAILY 30 tabs 2RF R07.9 - Chest pain, unspecified metoprolol succinate ER (Toprol XL) 25 mg PO DAILY 30 tabs 5RF R07.9 - Chest pain, unspecified Coding Level of Care Code New Pt Level 4 (34820) Complex EM visit Add On G2211 Diagnoses Exertional chest pain R07.9 CPT Codes EKG - CPT: 96752-Jinkcjxsmjnazsdry, Complete ([id number])
[2024-06-18 08:41] VITALS: BP 120/62; PULSE 75; BMI 35.2
== END 2024-06-18 09:10 | disposition home or self-care (01) ==
PROVIDERS: PCP Internal Medicine Endocrinology, Diabetes & Metabolism; Visit Provider Internal Medicine Cardiovascular Disease
DX: R07.9 Chest pain, unspecified (principal)
CPT/HCPCS: 93010; 99204; G2211

== ENCOUNTER → 2024-06-18 07:49 | Outpatient (BNVA) | payer MEDICARE, SELFPAY | PROVIDERS: PCP Internal Medicine Endocrinology, Diabetes & Metabolism; Visit Provider Internal Medicine Cardiovascular Disease | DX: R07.9 Chest pain, unspecified (principal) | CPT/HCPCS: 93005; 99202 ==

== ENCOUNTER 2024-08-07 07:49 | Inpatient (IN) | payer MEDICARE, SELFPAY ==
[2024-08-07] VITALS (8 sets, daily range): BP systolic 124–169; BP diastolic 54–75; PULSE 71–90; RESP 14–18; TEMP 36.3–36.8; O2SAT 95–99; BMI 34.7
--- NOTE | ~2024-08-07 | CT_ITS ---
EXAMINATION: CT ABDOMEN PELVIS WITH IV CONTRAST HISTORY: LLQ pain, vomiting COMPARISON: There are no prior studies for available comparison. TECHNIQUE: CT scan of the abdomen and pelvis was performed following administration of 85 mL Omnipaque 350 using standard departmental protocol. Coronal and sagittal reformatted images were generated and reviewed. Oral contrast material was not administered at the request of the referring physician. This CT exam was performed with one or more of the following dose reduction techniques: automated exposure control, adjustment of the mA and/or kV according to patient size, use of iterative reconstruction technique. DLP: 762 mGy-cm FINDINGS: LOWER CHEST: The visualized lung bases are clear. There is no pleural effusion. CARDIOVASCULATURE: The heart is normal in size. There is no pericardial effusion. LIVER: The liver is normal in size and contour. Innumerable cysts are seen scattered throughout the liver measuring up to 2.9 cm in size. There are numerous calcifications throughout the liver. The hepatic and portal veins are patent. GALLBLADDER / BILE DUCTS: There is cholelithiasis. There is no intra or extrahepatic biliary ductal dilatation. SPLEEN: The spleen is normal in size. No focal splenic lesion is identified. PANCREAS: The pancreas is unremarkable in appearance. ADRENAL GLANDS: Within normal limits. KIDNEYS/RETROPERITONEUM: There is a 5 mm nonobstructing calculus in the interpolar region of the left kidney. There is no hydronephrosis. Subcentimeter hypodensities at the upper pole of the left kidney likely represent cysts but are too small to accurately characterize. The right kidney is unremarkable. LYMPH NODES: No abdominal or pelvic lymphadenopathy. VASCULATURE: The abdominal aorta is normal in caliber. MESENTERY/PERITONEUM: No free fluid. No masses. There is no free intraperitoneal gas. STOMACH: The stomach is collapsed, limiting evaluation. SMALL BOWEL: There is prominent wall thickening of the jejunal small bowel loops in the left upper quadrant, consistent with enteritis. COLON: There is moderate wall thickening of the transverse colon consistent with colitis. The remainder of the colon is unremarkable. APPENDIX: Normal. URINARY BLADDER/PELVIC ORGANS: The urinary bladder is collapsed, limiting evaluation. There is a 1.7 cm contour bulge at the fundus of the uterus which likely represents a fibroid. BONES / SOFT TISSUES: There is a moderate to severe compression deformity of T12 described on an MRI of the lumbar spine report dated 05/16/2014. CT/CT abdomen pelvis w IV con IMPRESSION: 1. Moderate wall thickening of the transverse colon, consistent with colitis. 2. Prominent wall thickening of jejunal small bowel loops, consistent with enteritis. 3. Additional incidental findings as described above. Electronically signed by: Jeremy Vila MD 08/07/2024 09:27 AM EDT
--- NOTE | 2024-08-07 08:04 | PC.NURSE ---
Patient A&O x 3. Patient presents to ED c/o LLQ abdominal pain accompanied with v/d and chills denies chills. Pain started last night, Patient rates pain 4/10 non radiating. Denies SOB Possible sick contact (bus trip), denies surgeries. +bowel sounds. Denies blood thinners, fevers. VSS and up to date Provider in to see patient. Plan of care on going.
--- NOTE | 2024-08-07 08:07 | ECG_ITS ---
Test Reason : abdominal pain Blood Pressure : */* mmHG Vent. Rate : 79 BPM Atrial Rate : 79 BPM P-R Int : 196 ms QRS Dur : 154 ms QT Int : 410 ms P-R-T Axes : 10 -14 55 degrees QTcB Int : 470 ms Normal sinus rhythm Left bundle branch block Abnormal ECG No previous ECGs available Referred By: Cat Carmona Electronically Signed By: XAVI MOBLEY MD
--- NOTE | 2024-08-07 08:08 | ED.ABDPAIN ---
HPI - Abdominal Pain General Chief Complaint: Abdominal Pain Stated Complaint: l side abd pain diarrhea vomiting Time Seen by Provider: 08/07/24 07:57 Source: patient, family and old records reviewed Mode of arrival: ambulatory Limitations: no limitations History of Present Illness ED Provider: MARNIE BLOUNT narrative: 79 yo female with PMH of HTN, HLD, CAD here with c/o n/v/d LLQ pain and chills after taking a bus trip to [employer] yesterday. She has no CP/SOB. No fevers. She notes no katelin blood or melena. She has never had diverticulitis before. No recent abx use. She started last night around 8pm with symptoms and her vomiting has improved but the pain persists. No urinary symptoms. MD elicited complaint: abdominal pain Pertinent past history: none Onset (ago): day(s) (1) Pain Consistency: constant Location: LLQ Severity: moderate Quality: cramping and aching Radiation: none Migration to: no migration Exacerbating factors: vomiting and movement Relieving factors: nothing Context: other Associated symptoms: nausea, vomiting, diarrhea and chills Related Data Home Medications ?Medication ?Instructions ?Recorded ?Confirmed dulaglutide 3 mg/0.5 mL 3 mg subcut QWEEK 06/18/24 06/18/24 subcutaneous pen injector (Trulicity) levothyroxine 25 mcg tablet 25 mcg PO DAILY 06/18/24 06/18/24 lisinopril 20 mg tablet 20 mg PO DAILY 06/18/24 06/18/24 metformin 500 mg tablet 1,000 mg PO BID 06/18/24 06/18/24 nystatin-triamcinolone 100,000 topical 06/18/24 06/18/24 unit/gram-0.1 % topical ointment Previous Rx's ?Medication ?Instructions ?Recorded alirocumab 75 mg/mL subcutaneous 75 mg subcut Q14D #2 mL 06/18/24 pen injector (Praluent Pen) aspirin 81 mg tablet,delayed 81 mg PO DAILY #30 tabs 06/18/24 release (Ecotrin Low Strength) metoprolol succinate 25 mg 25 mg PO DAILY #30 tabs 06/18/24 tablet,extended release 24 hr (Toprol XL) ezetimibe 10 mg tablet 10 mg PO DAILY #30 tabs 06/23/24 Allergies Allergy/AdvReac Type Severity Reaction Status Date / Time [id number] Reductase AdvReac Severe Gastrointestinal Verified 08/07/24 08:12 Inhibitor Upset cephalexin [CEPHALEXIN] AdvReac Unknown NAUSEA & Verified 08/07/24 08:12 VOMITING Review of Systems Review of Systems Constitutional : No Weight loss, No Fever, pos Chills ENT/Mouth : No sore throat, No Rhinorrhea Eyes: No Swelling, No Redness Cardiovascular : No Chest Pain, No SOB, NoEdema Respiratory : No Cough, No Sputum, No Wheezing Gastrointestinal : Positive Nausea, Positive Vomiting, positive Diarrhea, positive abdominal Pain, No Hematochezia, No Melena Genitourinary : No Dysuria, No Urinary Frequency, No Hematuria, No Urgency Musculoskeletal : No joint pain, No Myalgias, No Joint Swelling Skin : No Skin Lesions, No rash Neuro : No Weakness, No Numbness, No Dizziness, No Headache Psych : No Anxiety/Panic, No Depression Heme/Lymph: No Bruising, No Lymphadenopathy Endocrine : No Polyuria, No Polydipsia All other systems reviewed and are negative. [facility] Past Medical History Attestation statement: The following information was validated with the patient. Source: old records reviewed Medical History Hyperlipidemia HTN (hypertension) Diabetes Surgical History H/O knee surgery Family History Family History Maternal Grandmother Diabetes Father Stroke Cancer Heart problem Mother No problems noted. Social History Social History Alcohol intake: never Patient Tobacco Use Status: Never used Tobacco Smoked in Last 30 Days: No Use of substances other than those prescribed or required for medical reasons: No Advance Directives: No Advance Directives Information Provided: Yes Physical Exam ED Vital Signs: Vital Signs - 24 hr 08/07/24 07:51 08/07/24 08:09 08/07/24 08:28 Temperature 97.4 F 97.7 F Pulse Rate 84 78 Respiratory Rate 18 14 14 Blood Pressure 156/70 H 139/54 L Pulse Oximetry 99 97 Oxygen Delivery Method Room Air Room Air BMI result Body Mass Index 34.7 Appearance: Alert. Oriented X3. No acute distress. Eyes: Pupils equal, round and reactive to light. ENT: Pharynx normal. Neck: Normal inspection. Neck supple. CVS: Normal heart rate and rhythm. Pulses normal. Respiratory: No respiratory distress. Breath sounds normal. Abdomen: Soft and moderate LLQ pain but no rebound on exam Skin: Skin warm and dry. Normal skin color. Normal skin turgor. Extremities: No lower extremity edema. Neuro: Oriented X 3. No motor deficit. No sensory deficit. CN2-12 intact Course Course Course Narrative: + colitis did eat a burger yesterday could be related to that. Has slight WBC count but no fevers would monitor symptoms and hold off on abx given possible E. Coli infection and concern for HUS Reevaluation(s) Reevaluation #1: repeat IV morphine for pain Medical Decision Making Medical Decision Making [facility] Narrative: 68 yo female with PMH of HTN, HLD, DM, no prior abd surgeries here with c/o LLQ pain n/v/d and chills. She has no bloody stools though felt one maybe looked off. No recent abx. She did go on a day bus trip to [employer] yesterday but did not eat seafood. At this time will need UA, labs, EKG, CT scan for possible diverticular disease, renal colic. IVF and IV morphine for pain Differential Diagnosis Differential Diagnoses: The differential diagnosis associated with the presentation includes diverticular disease, renal colic, colon inflammation, viral syndrome Admission/Observation Consideration of admission/observation: Escalation of care including admission/observation considered admit for IV pain control and fluids Consult Healthcare Provider Management of the patient was discussed with: Hospitalist (will admit) Lab Data [facility] Lab Attestation statement: I reviewed the patient's lab results. 08/07/24 08:16 08/07/24 08:16 Labs: Lab Results 08/07/24 Range/Units 08:16 WBC 13.4 H (4.8-10.8) X10*3/uL RBC 5.03 (4.20-5.50) X10*6/uL Hgb 14.9 (12.0-16.0) g/dl Hct 42.4 (37.0-47.0) % MCV 84.3 (80.0-98.0) fL MCH 29.6 (27.0-33.0) pg MCHC 35.1 H (31.0-35.0) g/dl RDW 13.1 (11.0-16.0) % Plt Count 326 (160-400) X10*3/uL MPV 10.7 (9.4-12.3) fL Immature Gran % (Auto) 0.4 (0.0-0.4) % Neut % (Auto) 81.7 H (45-73) % Lymph % (Auto) 14.4 L (20-40) % [place] % (Auto) 3.2 (2-11) % Eos % (Auto) 0.0 (0-4) % Baso % (Auto) 0.3 (0-2) % Lymph # (Auto) 1.9 (1.2-4.9) X10*3/uL [place] # (Auto) 0.4 (0.1-1.2) X10*3/uL Eos # (Auto) 0.0 (0.0-0.4) X10*3/uL Baso # (Auto) 0.0 (0.0-0.2) X10*3/uL Abs Immat Gran (auto) 0.05 H (0.00-0.03) X10*3/uL Absolute Neuts (auto) 10.9 H (2.0-8.3) x10*3/uL Absolute Nucleated RBC 0.000 (0.0-0.012) X10*3/uL Nucleated RBC % (auto) 0.0 (0.0-0.2) /100WBC Sodium 138 (135-145) mmol/L Potassium 4.5 (3.3-5.1) mmol/L Chloride 99 (96-108) mmol/L Carbon Dioxide 30 H (22-29) mmol/L Anion Gap 14 (12-20) BUN 31 H (9-16) mg/dL Creatinine 0.80 (0.5-1.4) mg/dL Estim Creat Clear Calc 71.8 Estimated GFR > 60 Random Glucose 159 H (60-115) mg/dL Calcium 10.3 H (8.4-10.2) mg/dL Magnesium 1.7 (1.6-2.6) mg/dL Total Bilirubin 1.1 H (0.0-1.0) mg/dL Direct Bilirubin 0.3 (0.0-0.5) mg/dL AST 22 (5-31) U/L ALT 18 (0-31) U/L Alkaline Phosphatase 80 (39-117) U/L Total Protein 7.7 (6.5-8.0) g/dL Albumin 4.6 (3.5-5.0) g/dL Lipase 140 H (8-78) U/L Independent Interpretation I performed an independent interpretation of an: EKG and CT Scan Interpretation: Rate: 79 Rhythm: NSR [place]: left Normal P waves. Normal PATI. LBBB ST T wave : inverted t waves I, aVL, V5 and V6, no REGINO qTC: 470 prior studies: no acute ischemia The study has been interpreted contemporaneously by me. . Radiology Impression Discussion of test interpretation with radiology: I have reviewed the radiologist's reading. Independent Historian Clinical information obtained from an independent historian. History obtained from or confirmed by: Spouse External Record Review External record reviewed: Outpatient record Medications Administered Discontinued Medications Generic Name Dose Route Start Last Admin Trade Name Eddieq PRN Reason Stop Dose Admin Lactated Ringer's 1,000 mls @ 999 mls/hr 08/07/24 08:02 08/07/24 08:24 Lr IV 08/07/24 09:02 999 mls/hr .Q1H1M ONE Administration Iohexol 85 ml 08/07/24 09:04 08/07/24 09:04 Iohexol 350 Mg/Ml 100 Ml Infus..Btl IV 08/07/24 09:05 85 ml ONCE ONE Administration Morphine Sulfate 4 mg 08/07/24 08:03 08/07/24 08:28 Morphine Sulfate 4 Mg/Ml Cartridge IVPUSH 08/07/24 08:04 4 mg ONCE ONE Administration Protocol Ondansetron HCl 4 mg 08/07/24 08:02 08/07/24 08:28 Ondansetron Hcl 4 Mg/2 Ml Vial IVPUSH 08/07/24 08:03 4 mg ONCE ONE Administration Critical Care Time Critical Care Time Critical Care Time: Yes Total Critical Care Time: 35 Attestation: Time is exclusive of separately billable procedures. Time includes: direct patient care, patient reassessment, coordination of patient care, interpretation of data (laboratory data, pulse oximetry, CT scans), review of patient's medical records, medical consultation and documentation of patient care. Repeat IV morphine with improvement in pain. Procedures excluded from critical care time: electrocardiography. Discharge Plan Discharge Clinical Impression: Colitis Patient Disposition: Admitted As Inpatient Print Language: Chilean
[2024-08-07] MEDS: Lactated Ringers 1,000 ML 999 ML IV (08:24)
[2024-08-07] MEDS: ondansetron HCL 4 MG/2 ML VIAL IVPUSH (08:28)
[2024-08-07] MEDS: Morphine Sulfate 4 MG/ML CARTRIDGE IVPUSH (08:28)
[2024-08-07 08:29] LABS: MANUAL DIFF FLAG NO
[2024-08-07 08:30] LABS: Basophils Percent Auto 0.3 % (0-2); Hematocrit 42.4 % (37.0-47.0); Hemoglobin 14.9 g/dl (12.0-16.0); Imm Gran Abs Auto 0.05 X10*3/uL (0.00-0.03); Imm Gran Pct Auto 0.4 % (0.0-0.4); Lymphocytes Absolute Auto 1.9 X10*3/uL (1.2-4.9); Lymphocytes Percent Auto 14.4 % (20-40); Mean Corpuscular HGB Conc 35.1 g/dl (31.0-35.0); Mean Corpuscular Hemoglobin 29.6 pg (27.0-33.0); Mean Corpuscular Volume 84.3 fL (80.0-98.0); Mean Platelet Volume 10.7 fL (9.4-12.3); Monocytes Absolute Auto 0.4 X10*3/uL (0.1-1.2); Monocytes Percent Auto 3.2 % (2-11); Neutrophils Absolute Auto 10.9 x10*3/uL (2.0-8.3); Neutrophils Percent Auto 81.7 % (45-73); Platelet Count 326 X10*3/uL (160-400); Red Blood Count 5.03 X10*6/uL (4.20-5.50); Red Cell Distribution Width 13.1 % (11.0-16.0); White Blood Count 13.4 X10*3/uL (4.8-10.8)
[2024-08-07 08:47] LABS: Alanine Aminotransferase 18 U/L (0-31); Albumin Level 4.6 g/dL (3.5-5.0); Alkaline Phosphatase 80 U/L (39-117); Anion Gap 14 (12-20); Aspartate Amino Transferase 22 U/L (5-31); Bilirubin Direct 0.3 mg/dL (0.0-0.5); Bilirubin Total 1.1 mg/dL (0.0-1.0); Blood Urea Nitrogen 31 mg/dL (9-16); Calcium 10.3 mg/dL (8.4-10.2); Carbon Dioxide 30 mmol/L (22-29); Chloride 99 mmol/L (96-108); Creatinine Clr Calc Pharmacy 71.8; Estimated Glomerular Filt Rate > 60; Glucose Random 159 mg/dL (60-115); Lipase 140 U/L (8-78); Magnesium 1.7 mg/dL (1.6-2.6); Potassium 4.5 mmol/L (3.3-5.1); Sodium 138 mmol/L (135-145); Total Protein 7.7 g/dL (6.5-8.0)
--- OUTSIDE RECORDS SUMMARY | 2024-08-07 08:48 | XMS_ITS ---
Author Organization [facility] Address [address] [address] Care Team Providers Care Supply Officer Name Role Phone Sadaf Buckley Primary Care Provider DUANE Lee Unavailable [phone] REASON FOR VISIT annual diabetic follow up Encounters Encounter Location Date Provider Diagnosis [facility] [address] [address] 07/23/2024 DUANE LAI Plan Of Treatment Next Appt Details Provider Name:DUANE LAI, 08/11/2024 11:00:00 AM, [address] [address], [place], [address], Progress Notes * Nhung HERNANDEZDOB: (68 yo F)Acc No.[id number]:07/23/2024 Progress Note Patient:Nhung STEVENSON Provider:Roberta Lai DPM :1955???Age:68 Y???Sex:Female D ate:07/23/2024 Phone: Address:[facility] [id number] Pcp:Sadaf Buckley Subjective: * Chief Complaints: * ???1. Annual diabetic follow up. * Medical History:? Objective: * Vitals:? Assessment: Plan: * Treatment: * Billing Information: * Visit Code:? * Procedure Codes:? * Electronic signature of FARZANA LAI D.P.M on 08/07/2024 at 08:48 AM EDT Sign off status: Pending * Provider:Roberta Lai DPM Date:? 07/23/2024 Generated for Fani delaney/Megan/eTransmitting on:?08/07/2024 08:48 AM EDT
[2024-08-07] MEDS: iohexoL 350 MG/ML 100 ML INFUS..BTL 85 ML IV (09:04)
[2024-08-07] MEDS: Lactated Ringers 1,000 ML 80 ML IVCONT ×2 (10:30→21:37)
--- NOTE | 2024-08-07 10:32 | PC.NURSE ---
Patient in no pain at this time, refused morphine
--- NOTE | 2024-08-07 10:45 | PHA.MEDREC ---
Addendum entered by Jessica Bailon RPh 08/07/24 11:06: Reviewed by pharmacist Original Note: Pharmacy Consult ? Medication Reconciliation Pharmacy has completed the medication reconciliation. Spoke with pt and she had on hand a list of medications I was able to utilize to complete the med rec. Pt confirmed her Trulicity once a week on Fridays and confirmed she last took it Tuesday 08/01.
--- NOTE | 2024-08-07 11:17 | PM.IMHP ---
History of Present Illness Date of Service: 08/07/24 Attending physician on admission: Silvia Del Angel Chief Complaint: Abdominal pain Nhung Berkowitz is a 68 years old woman with past medical history significant for hypertension, type 2 diabetes mellitus, hyperlipidemia and hypothyroidism presents to the emergency department complaining of abdominal pain that started last night associated with multiple events of nonbloody vomiting and non watery diarrhea (unsure if it is bloody but dark). Patient also reported chills but denied fever. She localized the pain in the left lower quadrant radiating to the pelvis and intensity of 4/10. Symptoms started after she ate a very well. She denied any cardiopulmonary symptoms. She has no acute urinary symptoms. Denied alcohol abuse, illicit drug use or tobacco smoking. She did not report contact with sick people or recent travel history. Denied history of abdominal surgeries. In the ED, she was found to have normal vital signs. Blood workup was remarkable for leukocytosis of 13.4. Hemoglobin is 14.9 and platelets 326. There is neutrophilia. There are no significant electrolyte imbalances except for slight elevation of calcium. CO2 is 30, BUN 31 and creatinine 0.80. Bilirubin is slightly elevated, 1.1. Other LFTs are normal. Lipase is elevated, 140. Abdominal pelvis CT scan with IV contrast showed moderate wall thickening of the transverse colon consistent with colitis, prominent wall thickening of the jejunum small bowel loops consistent with enteritis. ECG showed left bundle-branch block. ED tx: LR 1 L bolus then 80 mL/hour, Zofran 4 mg IV, morphine 6 mg total Review of Systems Review of Systems: All 12 systems were reviewed and normal except as noted in HPI. [facility], [facility] Medical History (Updated 08/07/24 @ 11:59 by Silvia Del Angel MD) Type 2 diabetes mellitus Left bundle branch block Hypothyroidism Hyperlipidemia HTN (hypertension) Family History Maternal Grandmother Diabetes Father Stroke Cancer Heart problem Mother No problems noted. Surgical History H/O knee surgery Social History Alcohol intake: never Patient Tobacco Use Status: Never used Tobacco Smoked in Last 30 Days: No Use of substances other than those prescribed or required for medical reasons: No Advance Directives: No Advance Directives Information Provided: Yes Meds Allergies Allergy/AdvReac Type Severity Reaction Status Date / Time [id number]-[id number] Reductase AdvReac Severe Gastrointestinal Verified 08/07/24 08:12 Inhibitor Upset cephalexin [CEPHALEXIN] AdvReac Unknown NAUSEA & Verified 08/07/24 08:12 VOMITING Active Medications: Current Medications Acetaminophen (Acetaminophen 325 Mg Tablet) 975 mg PO Q6H PRN PRN Reason: Pain, Mild 1-3,fever,headache Calcium Carbonate (Calcium Carbonate 750 Mg Tab.Chew) 750 mg PO Q4H PRN PRN Reason: Heartburn Enoxaparin Sodium (Enoxaparin Sodium 40 Mg/0.4 Ml Syringe) 40 mg SUBCUT Q24H [facility] Lactated Ringer's (Lr) 1,000 mls @ 80 mls/hr IVCONT .[id number] [facility] Last Admin: 08/07/24 10:30 Dose: 80 mls/hr Melatonin (Melatonin 3 Mg Tablet) 6 mg PO BEDTIME PRN PRN Reason: Insomnia Sodium Chloride (0.9 % Sodium Chloride Flush 3 Ml Syringe) 3 ml IVFLUSH QSHIFT [facility] Home Medications ?Medication ?Instructions ?Recorded ?Confirmed ?Last Taken ?Type dulaglutide 3 mg/0.5 mL 3 mg subcut FR 06/18/24 08/07/24 08/01/24 History subcutaneous pen injector (Trulicity) levothyroxine 25 mcg tablet 25 mcg PO DAILY@0600 06/18/24 08/07/24 08/06/24 History lisinopril 20 mg tablet 20 mg PO DAILY 06/18/24 08/07/24 08/06/24 History metformin 500 mg tablet 500 mg PO BIDWM 06/18/24 08/07/24 08/06/24 History acetaminophen 500 mg tablet 1,000 mg PO Q6H PRN Pain 08/07/24 08/07/24 08/06/24 History calcium carbonate (Calcium 600) 1,200 mg PO DAILY 08/07/24 08/07/24 08/06/24 History cholecalciferol (vitamin D3) 50 50 mcg PO DAILY 08/07/24 08/07/24 08/06/24 History mcg (2,000 unit) tablet (Vitamin D3) Physical Exam Vital Signs and Narrative: Vital Signs: Last Vital Signs Temp 98.2 F 08/07/24 10:22 Pulse 72 08/07/24 10:22 Resp 16 08/07/24 10:22 BP 124/63 08/07/24 10:22 Pulse Ox 97 08/07/24 10:22 O2 Del Method Room Air 08/07/24 10:22 BMI result Body Mass Index 34.7 Constitutional - Awake and Alert, No apparent distress. Afebrile. Pleasant. Cooperative. HEENT - PER, EOMI. Normal sclerae. Dry oral mucosa. Heart - RRR, No murmurs. Lungs - Normal lung expansion, Normal respiratory effort, No respiratory distress, CTA bilaterally Abdomen - increased bowel sounds, nondistended. LLQ tenderness without rebound or guarding. No surgical scars. - No CVA tenderness Extremities - no calf tenderness bilaterally, no swelling Musculoskeletal - Normal inspection, normal ROM Skin - Warm/Dry Neurological - Alert & oriented x3. Moving all extremities spontaneously. No facial droop. Normal speech. Psychological - Appropriate affect Results Labs 08/07/24 08:16 08/07/24 08:16 Labs: Laboratory Results - last 24 hr 08/07/24 08:16 MCV 84.3 MCH 29.6 MCHC 35.1 H RDW 13.1 Plt Count 326 MPV 10.7 Immature Gran % (Auto) 0.4 Neut % (Auto) 81.7 H Lymph % (Auto) 14.[address] [place] % (Auto) 3.2 Eos % (Auto) 0.0 Baso % (Auto) 0.3 Lymph # (Auto) 1.9 [place] # (Auto) 0.4 Eos # (Auto) 0.0 Baso # (Auto) 0.0 Abs Immat Gran (auto) 0.05 H Absolute Neuts (auto) 10.9 H Absolute Nucleated RBC 0.000 Nucleated RBC % (auto) 0.0 Anion Gap 14 Estim Creat Clear Calc 71.8 Estimated GFR > 60 Random Glucose 159 H Calcium 10.3 H Magnesium 1.7 Total Bilirubin 1.1 H Direct Bilirubin 0.3 AST 22 ALT 18 Alkaline Phosphatase 80 Total Protein 7.7 Albumin 4.6 Lipase 140 H Imaging Radiologist's Impressions: Impressions Abdomen/Pelvis CT 08/07/24 07:54 IMPRESSION: 1. Moderate wall thickening of the transverse colon, consistent with colitis. 2. Prominent wall thickening of jejunal small bowel loops, consistent with enteritis. 3. Additional incidental findings as described above. Electronically signed by: Jeremy Vila MD 08/07/2024 09:27 AM EDT Assessment and Plan (1) Colitis: Status: Acute (2) Hyperlipidemia: Qualifiers: Hyperlipidemia type: unspecified Qualified Code(s): E78.5 - Hyperlipidemia, unspecified Status: Acute (3) HTN (hypertension): Qualifiers: Hypertension type: primary hypertension Qualified Code(s): I10 - Essential (primary) hypertension Status: Acute (4) Diabetes: Qualifiers: Diabetes mellitus type: type 2 Diabetes mellitus senior care insulin use: unspecified supervisor intermediates insulin use status Diabetes mellitus complication status: without complication Qualified Code(s): E11.9 - Type 2 diabetes mellitus without complications Status: Deleted Plan Nhung Berkowitz is a 68 y.o woman admitted with: Acute enteritis and colitis after eating a hamburger. Admit to hospitalist service. Advance diet as tolerated. Continue IV fluids. Symptomatic therapy with IV meds and antiemetics. Check GI panel is positive we will start her IV antibiotic therapy. Leukocytosis, likely secondary to nausea and diarrhea/dehydration. Continue to monitor for now. Hyperlipidemia. Continue ezetimibe. Unable to tolerate statin in the past. Essential hypertension. Continue lisinopril and metoprolol. Hypothyroidism. Continue levothyroxine. Type 2 diabetes mellitus. Hold metformin (recent IV contrast). She also uses Trulicity on Fridays but not formulary. Insulin sliding scale for now. Old LBBB. Scheduled for a stress test and echo (next Sunday). Continue aspirin. Obesity, class I. BMI 34.7 kg/m2. Weight loss DVT prophylaxis: Lovenox Code status: Full Patient will need hospitalization for at least 2 midnights for acute enteritis and colitis treatment with IV pain meds and antiemetic; she might need IV antibiotic therapy if GI panel is positive for bacterial infection. Quality Stroke Does the patient have a stroke diagnosis?: No VTE Prior VTE?: No VTE Risk Level:: Medical - moderate - high VTE Device Contraindication: Treatment Not Indicated VTE Drug Contraindication: N/A - Med Ordered
[2024-08-07 12:25] LABS: Appearance Urine Clear; Color Urine Yellow; Glucose Urine UA Negative (Negative); Leukocyte Esterase Urine Negative (Negative); Nitrite Urine Negative (Negative); PH 6.5 (5.0-9.0); Specific Gravity - Urine >= 1.030 (1.005-1.025); Urine Blood Negative (Negative); Urine Ketones Negative (Negative); Urine Protein Negative (Neg-Trace)
[2024-08-07] MEDS: Acetaminophen 325 MG TABLET 975 MG PO ×2 (15:08→21:36)
[2024-08-07 17:01] LABS: Glucose, Whole Blood 161 mg/dL (60-115)
[2024-08-07 21:08] LABS: Glucose, Whole Blood 119 mg/dL (60-115)
[2024-08-08 03:51] VITALS: BP 138/65; PULSE 85; RESP 18; TEMP 36.5; O2SAT 93
[2024-08-08] MEDS: Levothyroxine Sodium 25 MCG TABLET PO (05:41)
[2024-08-08 06:08] LABS: Hematocrit 37.4 % (37.0-47.0); Hemoglobin 12.7 g/dl (12.0-16.0); Mean Corpuscular Hemoglobin 29.3 pg (27.0-33.0); Mean Corpuscular Volume 86.2 fL (80.0-98.0); Mean Platelet Volume 10.7 fL (9.4-12.3); Platelet Count 250 X10*3/uL (160-400); Red Blood Count 4.34 X10*6/uL (4.20-5.50); Red Cell Distribution Width 13.1 % (11.0-16.0); WBC ABN SCTR FOR CBC 1
[2024-08-08 06:29] LABS: Band Neutrophils Percent 0 % (3-5); Basophils Abs Manual 0.3 X10*3/uL (0.0-0.2); Basophils Percent Manual 2 % (0-2); Eosinophils Absolute Manual 0.3 X10*3/uL (0.0-0.4); Eosinophils Percent Manual 2 % (0-4); Lymphocytes Absolute Manual 2.9 X10*3/uL (1.2-4.9); Lymphocytes Percent Manual 21 % (20-40); Monocytes Absolute Manual 0.1 X10*3/uL (0.1-1.2); Monocytes Percent Manual 1 % (2-11); Neutrophils Absolute Manual 10.4 X10*3/uL (2.0-8.3); Neutrophils Percent Manual 74 % (45-73)
[2024-08-08 06:30] LABS: Platelet Estimate NORMAL (NORMAL); Platelet Morphology Comment NORMAL; RBC Morphology NORMAL
[2024-08-08 06:33] LABS: Anion Gap 11 (12-20); Blood Urea Nitrogen 12 mg/dL (9-16); Calcium 8.8 mg/dL (8.4-10.2); Carbon Dioxide 29 mmol/L (22-29); Chloride 102 mmol/L (96-108); Creatinine Clr Calc Pharmacy 91.2; Estimated Glomerular Filt Rate > 60; Glucose Random 133 mg/dL (60-115); Magnesium 1.6 mg/dL (1.6-2.6); Potassium 4.2 mmol/L (3.3-5.1); Sodium 138 mmol/L (135-145)
[2024-08-08 07:36] VITALS: BP 131/61; PULSE 83; RESP 16; TEMP 36.1; O2SAT 94
[2024-08-08 07:44] LABS: Glucose, Whole Blood 144 mg/dL (60-115)
[2024-08-08] MEDS: Calcium Carbonate 750 MG TAB.CHEW 1500 MG PO (08:43)
[2024-08-08] MEDS: Cholecalciferol (Vitamin D3) 25 MCG TABLET 50 MCG PO (08:43)
[2024-08-08] MEDS: Metoprolol Succinate ER 25 MG TAB.ER.24H PO (08:44)
[2024-08-08] MEDS: Aspirin Enteric Coated 81 MG TABLET.DR PO (08:44)
[2024-08-08] MEDS: Ezetimibe 10 MG TABLET PO (08:45)
[2024-08-08] MEDS: lisinopriL 20 MG TABLET PO (08:45)
[2024-08-08] MEDS: Enoxaparin Sodium 40 MG/0.4 ML SYRINGE SUBCUT (08:51)
--- NOTE | 2024-08-08 10:15 | PM.DS ---
DS: Providers Provider Date of Service: 08/08/24 Date of admission: 08/07/24 10:22 Date of discharge: 08/08/24 Primary care physician: Sadaf Buckley MD Consults: 08/08/24 08:53 Consult to Gastroenterology Routine Consulting Provider: David Dennis Reason for consultation: gastroenteritis with blood DS: Diagnosis Discharge Diagnosis (1) Colitis: Status: Acute (2) Hyperlipidemia: Status: Acute (3) HTN (hypertension): Status: Acute (4) Diabetes: Status: Deleted DS: Summary Hospital Course Hospital Course: from initial hpi: 68 years old woman with past medical history significant for hypertension, type 2 diabetes mellitus, hyperlipidemia and hypothyroidism presents to the emergency department complaining of abdominal pain that started last night associated with multiple events of nonbloody vomiting and non watery diarrhea (unsure if it is bloody but dark). Patient also reported chills but denied fever. She localized the pain in the left lower quadrant radiating to the pelvis and intensity of 4/10. Symptoms started after she ate a very well. She denied any cardiopulmonary symptoms. She has no acute urinary symptoms. Denied alcohol abuse, illicit drug use or tobacco smoking. She did not report contact with sick people or recent travel history. Denied history of abdominal surgeries. In the ED, she was found to have normal vital signs. Blood workup was remarkable for leukocytosis of 13.4. Hemoglobin is 14.9 and platelets 326. There is neutrophilia. There are no significant electrolyte imbalances except for slight elevation of calcium. CO2 is 30, BUN 31 and creatinine 0.80. Bilirubin is slightly elevated, 1.1. Other LFTs are normal. Lipase is elevated, 140. Abdominal pelvis CT scan with IV contrast showed moderate wall thickening of the transverse colon consistent with colitis, prominent wall thickening of the jejunum small bowel loops consistent with enteritis. ECG showed left bundle-branch block. ED tx: LR 1 L bolus then 80 mL/hour, Zofran 4 mg IV, morphine 6 mg total hospital course: Patient was admitted for acute gastroenteritis and colitis. History most consistent with infectious. Diarrhea resolved so was unable to get sample but continued to have small bloody discharge and left lower quadrant abdominal pain. Discussion was had with Gastroenterology who recommended empiric treatment with antibiotics. Patient will be discharged on 3 days of azithromycin. Overall feeling better faster than expected and able to maintain hydration. For hyperlipidemia continue ezetimibe, does not tolerate statin. For hypertension continued on lisinopril and metoprolol. For hypothyroid continue levothyroxine. For diabetes metformin held for 48 hours due to IV contrast. For history of left bundle branch block plan is for stress test and echo next week. Time Attestation Discharge Coordination Time (in mins): 35 Quality: Safe Use of Opioids Does Pt have an Active Cancer Diagnosis on the Problem List?: No Quality: Stroke Does the patient have a stroke diagnosis?: No Physical Exam Vital Signs: Vital Signs: Last Vital Signs Temp 96.9 F 08/08/24 07:36 Pulse 83 08/08/24 07:36 Resp 16 08/08/24 07:36 BP 131/61 08/08/24 07:36 Pulse Ox 94 08/08/24 07:36 O2 Del Method Room Air 08/08/24 07:36 BMI result Body Mass Index 34.7 General: AO X 3, no acute distress Resp: CTA bilateral, no accessory muscles used CVS: S1,S2,RRR GI: soft, LLQ tender, non distended Neuro: motor grossly intact, alert Psych: appropriate affect, appropriate insight DS: Data Data Completed and Pending Labs on day of discharge: Laboratory Results - last 24 hr 08/07/24 08/07/24 08/07/24 12:19 16:58 21:01 WBC RBC Hgb Hct MCV MCH MCHC RDW Plt Count MPV Immature Gran % (Auto) Neut % (Auto) Lymph % (Auto) [place] % (Auto) Eos % (Auto) Baso % (Auto) Lymph # (Auto) [place] # (Auto) Eos # (Auto) Baso # (Auto) Abs Immat Gran (auto) Absolute Neuts (auto) Absolute Nucleated RBC Nucleated RBC % (auto) Neutrophils % (Manual) Band Neutrophils % Lymphocytes % (Manual) Monocytes % (Manual) Eosinophils % (Manual) Basophils % (Manual) Abs Neuts (Manual) Lymphocytes # (Manual) Monocytes # (Manual) Eosinophils # (Manual) Basophils # (Manual) Platelet Estimate Plt Morphology Comment RBC Morphology Sodium Potassium Chloride Carbon Dioxide Anion Gap BUN Creatinine Estim Creat Clear Calc Estimated GFR POC Glucose 161 H 119 H Random Glucose Calcium Magnesium Urine Color Yellow Urine Appearance Clear Urine pH 6.5 Ur Specific [place] >= 1.030 H Urine Protein Negative Urine Glucose (UA) Negative Urine Ketones Negative Urine Blood Negative Urine Nitrite Negative Ur Leukocyte Esterase Negative 08/08/24 08/08/24 06:00 07:40 WBC 14.0 H RBC 4.34 Hgb 12.7 Hct 37.4 MCV 86.2 MCH 29.3 MCHC 34.0 RDW 13.1 Plt Count 250 MPV 10.7 Immature Gran % (Auto) Cancelled Neut % (Auto) Cancelled Lymph % (Auto) Cancelled [place] % (Auto) Cancelled Eos % (Auto) Cancelled Baso % (Auto) Cancelled Lymph # (Auto) Cancelled [place] # (Auto) Cancelled Eos # (Auto) Cancelled Baso # (Auto) Cancelled Abs Immat Gran (auto) Cancelled Absolute Neuts (auto) Cancelled Absolute Nucleated RBC 0.000 Nucleated RBC % (auto) 0.0 Neutrophils % (Manual) 74 H Band Neutrophils % 0 L Lymphocytes % (Manual) 21 Monocytes % (Manual) 1 L Eosinophils % (Manual) 2 Basophils % (Manual) 2 Abs Neuts (Manual) 10.4 H Lymphocytes # (Manual) 2.9 Monocytes # (Manual) 0.1 Eosinophils # (Manual) 0.3 Basophils # (Manual) 0.3 H Platelet Estimate NORMAL Plt Morphology Comment NORMAL RBC Morphology NORMAL Sodium 138 Potassium 4.2 Chloride 102 Carbon Dioxide 29 Anion Gap 11 L BUN 12 Creatinine 0.63 Estim Creat Clear Calc 91.2 Estimated GFR > 60 POC Glucose 144 H Random Glucose 133 H Calcium 8.8 D Magnesium 1.6 Urine Color Urine Appearance Urine pH Ur Specific [place] Urine Protein Urine Glucose (UA) Urine Ketones Urine Blood Urine Nitrite Ur Leukocyte Esterase Discharge Plan Discharge Anticipated Discharge Date/Time: 08/08/24 10:10 Patient Disposition: Home, Self-Care Discharge Diagnosis: gastroenteritis, likely infectious Referrals: Sadaf Buckley MD [Primary Care Provider] - 1 Week Discharge Medications: New azithromycin 500 mg tablet 500 mg PO DAILY 3 Days Qty: 3 0RF Continued ezetimibe 10 mg tablet 10 mg PO DAILY Qty: 30 5RF acetaminophen 500 mg Tablet 1,000 mg PO Q6H PRN (Reason: Pain) calcium carbonate [Calcium 600] 600 mg calcium (1,500 mg) Tablet 1,200 mg PO DAILY cholecalciferol (vitamin D3) [Vitamin D3] 50 mcg (2,000 unit) Tablet 50 mcg PO DAILY metformin 500 mg tablet 500 mg PO BIDWM [facility] 3 mg/0.5 mL pen injector 3 mg subcut FR levothyroxine 25 mcg tablet 25 mcg PO DAILY@0600 lisinopril 20 mg tablet 20 mg PO DAILY aspirin [Ecotrin Low Strength] 81 mg tablet,delayed release (DR/EC) 81 mg PO DAILY Qty: 30 2RF metoprolol succinate [Toprol XL] 25 mg tablet extended release 24 hr 25 mg PO DAILY Qty: 30 5RF Discharge Orders: Discharge Order (Routine); Ordered 08/08/24 Ordered By: Carson Cox Diet: Advance to usual diet Activity on Discharge: As tolerated Stand Alone Forms: Patient Portal Discharge page Print Language: Ecuadorean Care Plan Goals: recovery Health Concerns: gastroenteritis Plan of Treatment: azithromycin 500mg daily for 3 days. Assessment: see above
--- NOTE | 2024-08-08 10:49 | MHC.CM.PN ---
Patient dc'd home self care via private transport prior to CM assessment.
== END 2024-08-08 10:37 | disposition home or self-care (01) | DRG 392 ==
LOC: HO.ED 09:54 → HO.EDOVER 10:28 → HO.S3 13:26
PROVIDERS: Internal Medicine; Admitting Provider Family Medicine; Emergency Provider Emergency Medicine; PCP Internal Medicine; Visit Provider Internal Medicine
DX: K52.9 Noninfective gastroenteritis and colitis, unspecified (principal); I10 Essential (primary) hypertension; E03.9 Hypothyroidism, unspecified; E78.5 Hyperlipidemia, unspecified; E11.9 Type 2 diabetes mellitus without complications; E66.811 Obesity, class 1; Z68.34 Body mass index [BMI] 34.0-34.9, adult; Z71.3 Dietary counseling and surveillance; I25.10 Atherosclerotic heart disease of native coronary artery without angina pectoris; Z79.82 Long term (current) use of aspirin; Z79.890 Hormone replacement therapy; Z79.84 Long term (current) use of oral hypoglycemic drugs; Z79.85 Long-term (current) use of injectable non-insulin antidiabetic drugs; Z79.899 Other long term (current) drug therapy
CPT/HCPCS: 36415; 74177; 80048; 80076; 81003; 82947; 83690; 83735; 85007; 85025; 85027; 93005; 99285; J1650; J2270; J2405; J7120; Q9967

== ENCOUNTER → 2024-08-07 08:02 | Outpatient (BNV) | payer MEDICARE, SELFPAY | PROVIDERS: Emergency Provider Emergency Medicine; PCP Internal Medicine; Visit Provider Radiology Diagnostic Radiology | DX: K52.9 Noninfective gastroenteritis and colitis, unspecified (principal) | CPT/HCPCS: 74177 ==

== ENCOUNTER → 2024-08-07 08:07 | Outpatient (BNV) | payer MEDICARE, SELFPAY | PROVIDERS: Emergency Provider Emergency Medicine; PCP Internal Medicine; Visit Provider Internal Medicine Cardiovascular Disease | DX: I44.7 Left bundle-branch block, unspecified (principal) | CPT/HCPCS: 93010 ==

== ENCOUNTER → 2024-08-07 10:22 | Outpatient (BNV) | payer MEDICARE, SELFPAY | PROVIDERS: Admitting Provider Family Medicine; Emergency Provider Emergency Medicine; PCP Internal Medicine; Visit Provider Internal Medicine | DX: K52.9 Noninfective gastroenteritis and colitis, unspecified (principal); E78.5 Hyperlipidemia, unspecified; I10 Essential (primary) hypertension; E11.9 Type 2 diabetes mellitus without complications | CPT/HCPCS: 99222; 99239 ==

== ENCOUNTER → 2024-08-15 08:43 | Outpatient (REF) | payer MEDICARE, SELFPAY ==
--- OUTSIDE RECORDS SUMMARY | 2024-07-23 06:00 | XMS_ITS ---
Author Organization [facility] Address [address] [address] Care Team Providers Care Timber Robber Name Role Phone Sadaf Buckley Primary Care Provider Unavailabl DUANE Reyes Unavailable [phone] REASON FOR VISIT annual diabetic follow up Encounters Encounter Location Date Provider Diagnosis [facility] [address] [address] 07/23/2024 DUANE LAI Plan Of Treatment Next Appt Details Provider Name:DUANE LAI, 08/12/2025 08:00:00 AM, [address] [address], [place], [address], Progress Notes * Nhung HERNANDEZDOB: (68 yo F)Acc No.[id number]:07/23/2024 Progress Note Patient: Nhung WOODY Provider: Zahida Lai DPM :1955 A ge:68 Y S ex:Female Date:07/23/2024 Phone: Address:[id number] Pcp:Sadaf Buckley Subjective: * Chief Complaints: * 1 . Annual diabetic follow up. * Medical History: Objective: * Vitals: Assessment: Plan: * Treatment: * Billing Information: * Visit Code: * Procedure Codes: * Electronic signature of FARZANA LAI D.P.M on 08/15/2024 at 08:46 AM EDT Sign off status: Pending * Provider: Zahida Lai DPM Date: 07/23/2024 Generated for Fani delaney/Megan/eTransmitting on: 08/15/2024 08:46 AM EDT
--- NOTE | ~2024-08-15 | NM_ITS ---
Lexiscan Myocardial perfusion study Indication: Chest pain Technique: The patient was brought in for a Lexiscan perfusion study on 08/15/2024 and was injected 0.4 mg of Lexiscan intravenously. Within a minute of this injection 30 mCi of sestamibi was given intravenously. Images were obtained using the SPECT gamma camera interlaced with the gating device. Images were obtained in supine position. Resting perfusion study was performed on 08/19/2024. Patient was administered 30 mCi of sestamibi intravenously at rest. Images were then obtained in supine position. Total DLP 127 mGy-cm. Images were processed with the software and compared side to side in short axis, horizontal long axis and vertical long axis views. Findings: Raw aquisition reviewed. The stress perfusion study showed decreased tracer uptake in the distal part of lateral wall. There is improvement with CT attenuation correction suggestive of soft tissue attenuation artifact. The gated study shows diminished LV systolic function with calculated LVEF of 43%. LV cavity is dilated in size. The gated study shows globally reduced wall thickening and contraction of segments. Resting study shows diminished tracer uptake in the distal part of lateral wall. No significant change with CT attenuation correction. Gating at rest reveals normal wall motion with ejection fraction at 44%. The findings are consistent with no clear reversible defects. Fixed distal lateral defect, that could be related to soft tissue attenuation artifact. NM/NM ashlie perf SPECT rest & str Impression: 1. Myocardial perfusion imaging study shows probably normal myocardial perfusion. No clear evidence of any ischemia or infarction. 2. Gated LVEF is 43% during stress and 44% during rest. 3. Transient ischemic dilatation not present. EKG component of the test reported separately. Electronically signed by: Joseph Poole MD 08/19/2024 03:35 PM EDT
--- NOTE | 2024-08-15 08:46 | CA_ITS ---
Acquisition Time: 2024-08-15 10:02:54 Total Exercise Time: 00:02:00 Test Indications: BILAT SHOULDER TIGHTNESS Medications: Protocol: LEXISCAN Max HR: 93 BPM 62% of Pred: 150 BPM Max BP: 124/70 mmHG Max Work Load: 1.0 METS Pharmacological stress test with Lexiscan while pt swings her legs in chair, without any anginal symptoms, with isolated PVCs with normotensive response to injection. Nondiagnostic EKG for ischemia. In recovery, pt continued to feel well. Nuclear images pending. Test reviewed with Dr. Ha. Referred By: Sal Zhao Electronically Signed By: Shine Hoskins
--- NOTE | 2024-08-15 08:46 | CA_ITS ---
Transthoracic Echocardiogram Patient (Last, First, Middle): Nhung Berkowitz A Gender: Female Date of : 1955 Age: 68 Procedure Date: 08/15/2024 Procedure Type: Transthoracic Echocardiogram Location: OP Height: 162.56 cm Weight: 92.08 kg BSA: 1.97 m2 Heart Rate: bpm BP: 118 / 68 mmHg Glue Maker: TO Referring MD: Sal Zhao MD Symptoms: R07.9 - Chest pain, unspecified Study Quality: Adequate w contrast Conclusions: - Normal left ventricular cavity size. There is normal left ventricular wall thickness. The left ventricular systolic function is moderate to severely decreased. The visually estimated ejection fraction is between 25-30%. Septal dyssynchrony due to LBBB. - Normal right ventricular cavity size and systolic function. - There is mild calcification of the aortic valve. Findings Procedure Information Contrast agent, definity, is being given per protocol without apparent complications. Left Ventricle Normal left ventricular cavity size. There is normal left ventricular wall thickness. The left ventricular systolic function is moderate to severely decreased. The visually estimated ejection fraction is between 25-30%. Diastolic function is indeterminate on the basis of available data. Right Ventricle Normal right ventricular cavity size and systolic function. Atria The left atrium is normal in size. The right atrium was not well visualized. Aortic Valve There is a normal trileaflet aortic valve. There is mild calcification of the aortic valve. There is no aortic valve stenosis. There is no aortic valve regurgitation. Mitral Valve The mitral valve appears normal. There is trace mitral valve regurgitation. There is no mitral valve stenosis. Pulmonic Valve The pulmonic valve is likely normal. There is trace pulmonic valve regurgitation. Tricuspid Valve Normal tricuspid valve structure. There is no tricuspid valve regurgitation. Tricuspid regurgitation envelope is inadequate for calculation of right ventricular systolic pressure. Normal right atrial pressure. Great Vessels All visible segments of the aorta are normal in size. The visualized portions of the pulmonary artery and branches are normal. Venous The inferior vena cava is normal in size and collapses greater than 50% with inspiration. Pericardium/Pleural There is no evidence of pericardial effusion. Prior Study Comparison No prior study available for comparison. Measurements 2D Linear Measurements IVSd: 0.84 0.6-0.9/0.6-1.0 cm LVIDd: 5.45 3.9-5.3/4.2-5.9 cm LVIDd Index: 2.77 2.4-3.2/2.2-3.1 cm/m2 LVIDs: 4.60 2.0-3.6 cm LVPWd: 0.68 0.7-1.1 cm LV Mass: 184.41 67-162/88-224 g LV Mass Index: 93.61 43-95/49-115 g/m2 LVOT Diam: 2.10 3.0+(-)1.3 cm 2D Systolic Function EF 4C: 27.60 >55% EF 2C: 30.00 >55% EF BiP: 29.40 >55% Mitral Valve MV Pk E: 0.60 MV PK A: 1.06 MV Decel Time: 148.00 E/A: 0.60 E'Lateral: 4.13 E'Medial: 3.05 E/E' Med: 19.80 E/E' Lat: 14.60 PHT: 43.00 MVA PHT: 5.12 Decel [place]: 4.09 Aortic Valve AoV Pk Harsha: 1.31 AoV Mn Harsha: 0.90 AoV VTI: 0.32 AoV Pk Grad: 7.00 Aov Mn Grad: 4.00 DREW Cont.VTI: 1.82 LVOT LVOT Pk Harsha: 0.76 LVOT Mn Harsha: 0.47 LVOT VTI: 0.17 LVOT Pk Grad: 2.00 LVOT Mn Grad: 1.00 LVOT Diam: 2.10 LVOT Area: 3.46 Diastolic Function MV Pk E: 0.60 MV Pk A: 1.06 E/A: 0.60 E'Medial: 3.05 E/E' Med: 19.80 E' Laterial: 4.13 E/E' Lat: 14.60 Right Ventricle TAPSE (mm): 17.40 TVS' Harsha: 9.90 Tricuspid Valve RA Press: 3.00 Great Vessels Aorta Sinus of Valsalva: 3.30 2.0-3.5 cm Ao Asc: 3.50 2.1-3.4 cm Updated in Other Vendor System with Status of Final Trevin Ha MD electronically signed on 08/17/2024 9:10:36 PM with status of Final
== END ==
LOC: HO.CARD 08:43
PROVIDERS: PCP Internal Medicine; Visit Provider Internal Medicine Cardiovascular Disease
DX: R07.9 Chest pain, unspecified (principal); I44.7 Left bundle-branch block, unspecified
CPT/HCPCS: 78452; 93017; 93306; A9500; J0280; J2785; Q9957

== ENCOUNTER → 2024-08-15 08:46 | Outpatient (BNV) | payer MEDICARE, SELFPAY | PROVIDERS: PCP Internal Medicine | DX: I50.20 Unspecified systolic (congestive) heart failure (principal); I51.0 Cardiac septal defect, acquired; I44.7 Left bundle-branch block, unspecified | CPT/HCPCS: 78452; 93016; 93018; 93320; 93325; 93350; 93352 ==

== ENCOUNTER 2024-08-21 10:10 | Outpatient (AMB) | payer MEDICARE, SELFPAY ==
--- OUTSIDE RECORDS SUMMARY | 2024-08-18 13:30 | XMS_ITS | Encounter Summary ---
Author Organization [facility] Address [address] [place] [address] Care Team Providers Care Coil Spring Assembler Name Role Phone Sadaf Buckley MD Primary Care Provider [phone] Reason for Referral * Consultation (Routine) - Pending Review Specialty Diagnoses / Procedures Referred By Rivera mckeon Referred To Contact Gastroenterology Diagnoses Colitis Sadaf Buckley MD [address] [place] [id number] Phone: tel: fax: Referral ID Status Reason Start Date Expiration Date Visits Requested Visits Authorized [id number] Pending Review Specialty Services Required 08/18/2024 08/18/2025 1 1 Reason for Visit * Reason Comments Hospital [place] [facility] [place] [facility] Fsbs 114 Encounter Details Date Type Department Care Team (Late st Contact Info) Description 08/18/2024 1:30 PM EDT Office Visit Adult Medicine [address] [phone] Sadaf Buckley MD [address] [place] [address] Colitis (Primary Dx); Primary hypertension; Acquired hypothyroidism; Type 2 diabetes mellitus with obesity (CMS/HCC V24, CMS/HCC V28); Other hyperlipidemia Social History Tobacco Use Types Packs/Day Years [...] on file Sexual Orientation Not on file documented as of this encounter Last Filed Vital Signs Vital Sign Reading Time Taken Comments Blood Pressure 116/52 08/18/2024 1:32 PM EDT Pulse 76 08/18/2024 1:32 PM EDT Temperature 36.2 C (97.2 F) 08/18/2024 1:32 PM EDT Respiratory Rate 16 08/18/2024 1:32 PM EDT Oxygen Saturation 93% 08/18/2024 1:32 PM EDT Inhaled Oxygen Concentration - - Weight 92.6 kg (204 lb 1.6 oz) 08/18/2024 1:32 P M EDT Height 163.8 cm (5' 4.5 ) 08/18/2024 1:32 PM EDT Body Mass Index 34.49 08/18/2024 1:32 PM EDT documented in this encounter Ordered Prescriptions Prescription Sig Dispense Quantity Refills Last Filled Start Date End Date levothyroxine (SYNTHROID, LEVOTHROID) 25 mcg tablet Take 1 tablet (25 mcg total) by mouth 1 (one) time each day. 90 tablet 1 08/18/2024 documented in this encounter Progress Notes * Sadaf Buckley MD - 08/18/2024 1:30 PM EDT Chief Complaint: Chief Complaint Patient presents with Hospital Follow-up [facility] [place] [facility] Fsbs 114 IDENTIFIER: Nhung Berkowitz is a 68 y.o. old female HPI She comes for posthospital evaluation. She was hospitalized August 07 - August 08. She has hypertension, diabetes, elevated cholesterol, hypothyroidism. She presented with vomiting and diarrhea, did havea CT showing transverse colitis and thickening of the jejunal small bowel loops. She did have some mild leukocytosis, vomiting was treated with Zofran and she was given IV fluids. She had eaten a hamburger at a restaurant earlier in the day. She was unable to give a stool sample, it was felt that her presentation was consistent with an infectious colitis. GI did recommend empiric treatment with antibiotics and she was given 3 days of azithromycin. She was continued on Zetia for her cholesterol,Toprol and lisinopril for her blood pressure and thyroid replacement. She did have a left bundle branch block which was noted and is in process with cardiology having a nuclear stress test and echocardiogram. The stress test is being completed this week. She is not having any episodes of chest painor pressures and has not had any recurrence of her GI symptoms. ROS: General: No malaise, significant weight loss or fever Respiratory: No cough, wheezing or shortness of breath Cardiovascular: No chest pain, palpitations, no orthopnea GI as noted Past Medical History: Patient Active Problem List Diagnosis Date Noted Osteopenia 02/20/2023 Severe obesity (BMI 35.0-35.9 with comorbidity) ([facility] V24, [facility] V28) 03/06/2019 Lichen sclerosus 08/13/2018 Type 2 diabetes mellitus with obesity ([facility] V24, [facility] V28) 09/14/2017 Polycystic liver disease 06/20/2014 Degenerative disc disease, lumbar 05/18/2014 Compression fracture of T12 vertebra [place] [place], [facility] V28) 04/13/2014 Sciatica 12/03/2012 Nuclear sclerosis 04/17/2011 Hyperlipidemia 01/04/2009 Hypertension 04/25/2005 Hypothyroidism 04/25/2005 Surgical History: Past Surgical History: Procedure Laterality Date BREAST BIOPSY neg COLONOSCOPY 01/29/2009 : 13 mm sigmoid colon polyp: Tubular adenoma COLONOSCOPY 03/08/2012 : no polyps COLONOSCOPY 08/23/2017 : no polyps KNEE SURGERY 2012 scope l knee KNEE SURGERY Left 12/2015 scope Family History: Family History Problem Relation Name Age of Onset Stroke Mother dementia Esophageal cancer Father Colon cancer Brother Emmanuel 65.00 s/p CVA age 71 Coronary artery disease Brother Eleazar 74.00 pacemaker Coronary artery disease Brother Constantine 58.00 s/p 2 stents CABG Half-Brother 55.00 quintruple bypass Throat cancer Brother Mersimon 67.00 and renal cancer; non-smoker Diabetes Maternal Grandmother Breast cancer Mother's side great GM Social History: Social History Tobacco Use Smoking status: Former Current packs/day: 0.00 Average packs/day: 1.5 packs/day for 20.2 years (30.3 ttl pk-yrs) Types: Cigarettes Start date: 1974 Quit date: 02/26/1995 Years since quittin.4 Smokeless tobacco: Never Substance Use Topics Alcohol use: No Allergies: Cephalexin, Qxtscrn-rjj-ycj reductase inhibitors, and Atorvastatin Medications: Outpatient Medications Marked as Taking for the 08/18/24 encounter (Office Visit) with Sadaf Buckley MD Medication Sig Dispense Refill aspirin 81 mg EC tablet Take 1 tablet (81 mg total) by mouth 1 (one) time each day. blood sugar diagnostic (FreeStyle Lite Strips) test strip Test blood sugar once daily E11.9 calcium carbonate/vitamin D3 (CALCIUM + D ORAL) Take 2,000 mg by mouth daily. dulaglutide (TRULICITY) 3 mg/0.5 mL pen injector injection Inject 0.5 mL (3 mg total) under the skin every 7 (seven) days. 6 mL 1 FREESTYLE LANCETS MISC Test blood sugar once daily E11.9 ibuprofen (ADVIL,MOTRIN) 400 mg tablet Take 1 Tablet by mouth every 8 hours as needed. levothyroxine (SYNTHROID, LEVOTHROID) 25 mcg tablet Take 1 tablet (25 mcg total) by mouth 1 (one) time each day. 90 tablet 1 lisinopriL (PRINIVIL,ZESTRIL) 20 mg tablet Take 1 tablet (20 mg total) by mouth 1 (one) time each day. 90 tablet 1 metFORMIN (GLUCOPHAGE) 500 mg tablet Take 1 tablet (500 mg total) by mouth 1 (one) time each day with breakfast. nystatin-triamcinolone (MYCOLOG II) ointment Apply a thin layer to affected area twice weekly [DISCONTINUED] levothyroxine (SYNTHROID, LEVOTHROID) 25 mcg tablet Take 1 tablet (25 mcg total) by mouth 1 (one) time each day. 90 tablet 1 Medication Discontinued/Reordered: Medications Discontinued During This Encounter Medication Reason levothyroxine (SYNTHROID, LEVOTHROID) 25 mcg tablet Reorder Vitals: Blood pressure 116/52, pulse 76, temperature 36.2 ??C (97.2 ??F), temperature source Temporal, resp. rate 16, height 1.638 m (64.5 ), weight 92.6 kg (204 lb 1.6 oz), SpO2 93%. Body mass index is 34.49 kg/m??.Plan is deferred because the patient is aged 65 or older and a weight gain/reduction plan would complicate other health conditions Physical Exam: General: patient is in no acute distress. Neck supple without adenopathy, no thyromegaly. Lungs clear with auscultation. Heart: regular S1S2 without murmur, rub or gallop. Abdomen soft, nontender, nomasses or organomegaly. Bowel sounds normal active. Extremities without cyanosis, clubbing or edema. Labs: Hospital admission and discharge notes reviewed Lab Results Component Value Date HGBA1C 7.0 (H) 05/16/2024 Impression: 1. Colitis 2. Primary hypertension 3. Acquired hypothyroidism 4. Type 2 diabetes mellitus with obesity ([facility] V24, [facility] V28) 5. Other hyperlipidemia Assessment and Plan: Her sugar control remains good and she is continuing with metformin and Trulicity, Zetia for her cholesterol, is not able to tolerate statins. She is in the midst of cardiac evaluation with echocardiogram and nuclear stress test and will be seeing cardiology later this week after completion of the testing. She is referred to see GI, she did have the episode of colitis, has never had a colonoscopy, it was felt most likely that it was infectious, diarrhea did resolve without any recurrence of hersymptoms. Sugar control remains reasonable with glycohemoglobin of 7.0, continue with thyroid replacement as well as blood pressure control. She will return in 6 months, sooner if needed. documented in this encounter Plan of Treatment Upcoming Encounters Date Type Department Care Team (Late st Contact Info) Description 11/14/2024 7:30 AM EDT Appointment Radiology Department - [address] [phone] 12/19/2024 8:20 AM EDT Office Visit Endocrinology - [address] [phone] Cami Dennis PA [address] [place], [place] 02/16/2025 8:15 AM EST Office Visit Adult Medicine [facility] [address] [place] [address] Sadaf Buckley MD [address] [place] [address] Scheduled Referrals Name Type Priority Associated Diagnoses Order Schedule Ambulatory referral to Gastroenterology Outpatient Referral Routine Colitis 1 Occurrences starting 08/18/2024 until 08/18/2025 documented as of this encounter Visit Diagnoses Diagnosis Colitis- Primary Other and unspecified noninfectious gastroenteritis and colitis Primary hypertension Unspecified essential hypertension Acquired hypothyroidism Unspecified hypothyroidism Type 2 diabetes mellitus with obesity ([facility] V24, [facility] V28) Other hyperlipidemia Encounter for screening mammogram for breast cancer documented in this encounter Discontinued Medications Medication Sig Discontinue Reason Start Date End Da te levothyroxine (SYNTHROID, LEVOTHROID) 25 mcg tablet Take 1 tablet (25 mcg total) by mouth 1 (one) time each day. Reorder 01/17/2024 08/18/2024 documented as of this encounter Historical Medications * This list may reflect changes made after this encounter. metoprolol succinate (TOPROL-XL) 25 mg 24 hr tablet Take 1 tablet (25 mg total) by mouth 1 (one) time each day. Do not crush or chew. ezetimibe (ZETIA) 10 mg tablet Take 1 tablet (10 mg total) by mouth 1 (one) time each day. aspirin 81 mg EC tablet Take 1 tablet (81 mg total) by mouth 1 (one) time each day. added in this encounter Care Teams Coil Spring Assembler Relationship Specialty Start Date End Date Sadaf Buckley MD [address] [place] [address] PCP - General Internal Medicine 09/10/19 documented as of this encounter
[2024-08-21 10:23] VITALS: BP 124/62; PULSE 74; BMI 34.6
--- NOTE | 2024-08-21 10:23 | MHC.OFFVIS ---
Vital Signs 08/21/24 10:23 Height 5 ft 4 in Weight 201 lb 8.04 oz BMI 34.6 BP 124/62 Blood Pressure Location Rt brachial Position Sitting Pulse 74 Pulse Source Pulse Oximeter Intake Visit Reasons: f/u after testing Quality Assurance Qa Lab Technician Required: No Retail Pos Specialist: Retail Pos Specialist Present Allergies Qenqogd-OAT-IzI Reductase Inhibitor Adverse Reaction (Severe, Verified 08/21/24 10:26) Gastrointestinal Upset cephalexin (CEPHALEXIN) Adverse Reaction (Unknown, Verified 08/21/24 10:26) NAUSEA & VOMITING Medication List - Last Reconciled 08/21/24 by Pamela Rodríguez, STREETS AND BUILDINGS DECORATOR-C acetaminophen 1,000 mg PO Q6H PRN aspirin (Ecotrin Low Strength) 81 mg PO DAILY azithromycin 500 mg PO DAILY 3 days calcium carbonate (Calcium 600) 1,200 mg PO DAILY cholecalciferol (vitamin D3) (Vitamin D3) 50 mcg PO DAILY dulaglutide (Trulicity) 3 mg subcut FR ezetimibe 10 mg PO DAILY levothyroxine 25 mcg PO DAILY@0600 lisinopril 20 mg PO DAILY metformin 500 mg PO BIDWM metoprolol succinate ER (Toprol XL) 25 mg PO DAILY HPI HPI f/u after testing: Details: Nhung is a 68-year-old female with past medical history of diabetes, hypertension, hyperlipidemia with statin intolerance, obesity, left bundle branch block who has been evaluated for scapular area discomfort when walking the dog. Her office EKG had shown sinus rhythm with left bundle branch block, rate 75. She was ordered to have echocardiogram and nuclear stress test and now presents for follow-up. Today she reports that she has been feeling well with no concerning symptoms. She denies chest or scapular area discomfort. No shortness of breath, PND, orthopnea or edema. No lightheadedness, presyncope, syncope, falls. He has no concern for sleep apnea. Blood pressure has been well controlled. She does not drink alcohol beverages. No recent acute illness. Takes meds as directed. is present. [facility] Medical History Type 2 diabetes mellitus Left bundle branch block Hypothyroidism Hyperlipidemia HTN (hypertension) Surgical History H/O knee surgery Family History Maternal Grandmother Diabetes Father Stroke Cancer Heart problem Mother No problems noted. Social History Household Members: Spouse Housing: House Do you presently have visiting nurse or other home services: No Alcohol intake: never Patient Tobacco Use Status: Never used Tobacco Review of Systems Const All systems reviewed & are unremarkable except as noted in HPI and below ENT Denies dizziness Card Denies chest pain, Denies chest pain at rest, Denies chest pain with activity, Denies rapid heart rate, Denies pedal edema, Denies edema, Denies leg edema, Denies lightheadedness, Denies palpitations, Denies dyspnea, Denies dyspnea on exertion and Denies orthopnea Resp Denies cough, Denies dyspnea and Denies dyspnea on exertion GI Denies hematochezia and Denies change in stool character Musc Denies abnormal gait, Denies limited range of motion, Denies muscle cramps, Denies muscle weakness, Denies numbness, Denies radiating pain into limb, Denies stiffness and Denies tingling Neuro Denies abnormal gait, Denies dizziness, Denies numbness and Denies tingling Endo Denies palpitations Physical Exam Vital Signs: Last Vital Signs Pulse 74 08/21/24 10:23 BP 124/62 08/21/24 10:23 BMI result Body Mass Index 34.6 Const General: cooperative, healthy appearing, comfortable and no acute distress Orientation/consciousness: patient oriented x3 Neck Neck: Yes normal visual inspection and Yes no JVD Resp Effort & Inspection: normal respiratory effort Auscultation: clear to auscultation bilaterally, no crackles, no rales, no rhonchi and no wheezes Cardio Rate: regular rate Rhythm: regular rhythm Heart sounds: S1 normal heart sound present, S2 normal heart sound present, no gallops, no murmurs and no rubs Neuro General: patient oriented x3 Extrem General: Yes normal to inspection, No no pedal edema and No calf tenderness Psych Appearance: grossly normal Mental Status: mental status grossly normal Speech and movement: Normal speech and movement present Assessment & Plan Assessment & Plan (1) Cardiomyopathy: Code(s): I42.9 - Cardiomyopathy, unspecified Category: Medical Plan: Cardiac evaluation for atypical discomfort and EKG showing left bundle branch block. Echocardiogram 08/15/2024 shows EF 25-30%, septal dyssynchrony due to left bundle branch block mild calcification of the aortic valve. She had a nuclear stress test done 08/15/2024 showing probable normal myocardial perfusion, no clear infarct or ischemia. Test results reviewed with her in detail. Diagnosis of nonischemic cardiomyopathy reviewed. May be related to left bundle branch block. Will have her stop lisinopril and after washout start on Entresto. BMP in 1 week. Continue metoprolol XL for neurohormonal modulation. She is not requiring diuretics at this time. Signs and symptoms of heart failure reviewed with her. Plan repeat limited echo in 3 months and if EF remains less than 35% ICD may be considered. Cardiology follow-up in 6-8 weeks, sooner if needed (2) Left bundle branch block: Code(s): I44.7 - Left bundle-branch block, unspecified Category: Medical Plan: Present on EKG, unknown longevity (3) HTN (hypertension): Code(s): I10 - Essential (primary) hypertension Category: Medical Qualifiers: Hypertension type: primary hypertension Qualified Code(s): I10 - Essential (primary) hypertension Plan: Blood pressure goal less than 130/80. Well controlled at this time. Continue metoprolol. Will have her start Entresto. (4) Hyperlipidemia: Code(s): E78.5 - Hyperlipidemia, unspecified Category: Medical Qualifiers: Hyperlipidemia type: unspecified Qualified Code(s): E78.5 - Hyperlipidemia, unspecified Plan: [place] LDL goal less than 70 in patient with diabetes. Intolerant to statins. She is on Zetia 10 mg daily. Followed by PCP. Plan I discussed with the patient that her echocardiogram indicates a reduced ejection fraction, suggesting heart failure. We reviewed the potential causes, including left bundle branch block and the absence of arterial blockages. I recommended transitioning from lisinopril to Entresto, which has shown better outcomes in improving heart function. We also discussed the importance of monitoring for symptoms of fluid retention, such as shortness of breath or leg swelling, which could indicate congestive heart failure. I advised her to avoid salt to prevent fluid retention. A follow-up appointment is scheduled in six to eight weeks, and a blood test will be conducted one week after starting Entresto to monitor electrolytes. Orders: Orders Basic Metabolic Panel Today I42.9 - Cardiomyopathy, unspecified Medications: New sacubitril-valsartan 49-51 mg (Entresto) 1 tab PO BID 60 tabs 3RF 30 days Patient Instructions: - Transition from lisinopril to Entresto after a two-day washout period. - Continue taking metoprolol as prescribed. - Monitor for symptoms of fluid retention, such as shortness of breath or leg swelling. - Avoid salt in the diet to prevent fluid retention. - Attend follow-up appointment in six to eight weeks. - Get a blood test one week after starting Entresto to check electrolytes. Patient was informed and verbally consented to the use of an ambient scribe for clinic note documentation during this visit. Visit time spent on chart review, interview, assessment, orders, documentation. Coding Level of Care Code Est Pt Level 4 (94981) Complex EM visit Add On G2211 Diagnoses Cardiomyopathy I42.9 Left bundle branch block I44.7 Primary hypertension I10 Hypertension type: primary hypertension Hyperlipidemia, unspecified hyperlipidemia type E78.5 Hyperlipidemia type: unspecified Time Spent (min) 36
== END 2024-08-21 11:09 | disposition home or self-care (01) ==
LOC: HO.HCS 10:10
PROVIDERS: PCP Internal Medicine; Visit Provider Nurse Practitioner Family
DX: I42.9 Cardiomyopathy, unspecified (principal); I44.7 Left bundle-branch block, unspecified; I10 Essential (primary) hypertension; E78.5 Hyperlipidemia, unspecified
CPT/HCPCS: 99214; G2211

== ENCOUNTER → 2024-08-21 10:10 | Outpatient (BNVA) | payer MEDICARE, SELFPAY | PROVIDERS: PCP Internal Medicine; Visit Provider Nurse Practitioner Family | DX: Z71.2 Person consulting for explanation of examination or test findings (principal); I44.7 Left bundle-branch block, unspecified; I42.9 Cardiomyopathy, unspecified; I10 Essential (primary) hypertension; E78.5 Hyperlipidemia, unspecified | CPT/HCPCS: 99212 ==

== ENCOUNTER 2024-09-01 08:05 | Outpatient (REF) | payer MEDICARE, SELFPAY ==
--- OUTSIDE RECORDS SUMMARY | 2024-07-23 06:00 | XMS_ITS ---
Author Organization [facility] Address [address] [address] Care Team Providers Care Technical Account Manager Name Role Phone Sadaf Buckley Primary Care Provider Unavailabl DUANE Reyes Unavailable [phone] REASON FOR VISIT annual diabetic follow up Encounters Encounter Location Date Provider Diagnosis [facility] [address] [address] 07/23/2024 DUANE LAI Plan Of Treatment Next Appt Details Provider Name:DUANE LAI, 08/12/2025 08:00:00 AM, [address] [address], [place], [address], Progress Notes * Nhung HERNANDEZDOB: (68 yo F)Acc No.[id number]:07/23/2024 Progress Note Patient: Nhung WOODY Provider: Zahida Lai DPM :1955 A ge:68 Y S ex:Female Date:07/23/2024 Phone: Address:[address] [id number] Pcp:Sadaf uBckley Subjective: * Chief Complaints: * 1 . Annual diabetic follow up. * Medical History: Objective: * Vitals: Assessment: Plan: * Treatment: * Billing Information: * Visit Code: * Procedure Codes: * Electronic signature of FARZANA LAI D.P.M on 09/01/2024 at 08:10 AM EDT Sign off status: Pending * Provider: Zahida Lai DPM Date: 07/23/2024 Generated for Fani delaney/Megan/eTransmitting on: 09/01/2024 08:10 AM EDT
--- OUTSIDE RECORDS SUMMARY | 2024-09-01 08:11 | XMS_ITS | Clinical Summary ---
Author Organization [facility] [address] [facility] Address [address] [place] [address] Phone Care Team Providers Care Open Hearth Worker Name Role Phone Sadaf Buckley MD Primary Care Provider [phone] Allergies Active Allergy Reactions Criticality Noted Date Comments Atorvastatin Low 08/10/2023 Reflux, severe Cephalexin Nausea And Vomiting 10/18/2006 Sensitivity with this medication. Cuctaot-Vbw-Mdx Reductase Inhibitors 09/14/2017 Elevated LFTS Medications nystatin-triamc inolone (MYCOLOG II) ointment Apply a thin layer to affected area twice weekly 4 Active FREESTYLE LANCETS MISC Test blood sugar once daily E11.9 3 Active blood sugar diagnostic (FreeStyle Lite Strips) test strip Test blood sugar once daily E11.9 3 Active ibuprofen (ADVIL,MOTRIN) 400 mg tablet Take 1 Tablet by mouth every 8 hours as needed. Active calcium carbonate/vitam in D3 (CALCIUM + D ORAL) Take 2,000 mg by mouth daily. Active lisinopriL (PRINIVIL,ZESTR IL) 20 mg tablet Take 1 tablet (20 mg total) by mouth 1 (one) time each day. 90 tablet 1 4 Active metFORMIN (GLUCOPHAGE) 500 mg tablet Take 1 tablet (500 mg total) by mouth 1 (one) time each day with breakfast. 4 Active dulaglutide (TRULICITY) 3 mg/0.5 mL pen injector injectionIndica tions:Type 2 diabetes mellitus with obesity (CMS/HCC V24, CMS/HCC V28) Inject 0.5 mL (3 mg total) under the skin every 7 (seven) days. 6 mL 1 5 Active aspirin 81 mg EC tablet Take 1 tablet (81 mg total) by mouth 1 (one) time each day. Active ezetimibe (ZETIA) 10 mg tablet Take 1 tablet (10 mg total) by mouth 1 (one) time each day. Active metoprolol succinate (TOPROL-XL) 25 mg 24 hr tablet Take 1 tablet (25 mg total) by mouth 1 (one) time each day. Do not crush or chew. Active levothyroxine (SYNTHROID, LEVOTHROID) 25 mcg tablet Take 1 tablet (25 mcg total) by mouth 1 (one) time each day. 90 tablet 1 5 Active levothyroxine (SYNTHROID, LEVOTHROID) 25 mcg tablet Take 1 tablet (25 mcg total) by mouth 1 (one) time each day. 90 tablet 1 4 08/19/19 25 Discontinu ed(Reorder ) Active Problems Problem Noted Date Diagnosed Date Osteopenia 02/20/2023 Severe obesity (BMI 35.0-35. 9 with comorbidity) ([facility] V24, [facility] V28) 03/06/2019 Lichen sclerosus 08/13/2018 Overview (08/15/2024): Type 2 diabetes mellitus wit h obesity ([facility] V24, [facility] V28) 09/14/2017 Polycystic liver disease 06/20/2014 Degenerative disc disease, lumbar 05/18/2014 Compression fracture of T12 vertebra ([facility] V24, [facility] V28) 04/13/2014 Sciatica 12/03/2012 Overview (12/06/2023): Herniated L4-5 disc on left, MRI, 11/14/2012 Nuclear sclerosis 04/17/2011 Overview (12/06/2023): Noted by Dr. Oliveira on 10/21/2010 exam. Hyperlipidemia 01/04/2009 Hypertension 04/25/2005 Hypothyroidism 04/25/2005 Overview (12/06/2023): Hyperthyroidism, ablated with 22.8 mCi of iodine-131 on 12/29/2009 Encounters Date Type Department Care Team Description 08/18/2024 1:30 PM EDT Office Visit Adult Medicine [address] [phone] Sadaf Buckley MD Colitis (Primary Dx); Primary hypertension; Acquired hypothyroidism; Type 2 diabetes mellitus with obesity (CMS/HCC V24, CMS/HCC V28); Other hyperlipidemia 08/11/2024 Telephone Adult Medicine [address] [phone] Sadaf Buckley MD Hospital Follow-up from Last 3 Months Immunizations Name Administration Dates Next Due COVID-19 (Moderna/Spikevax) 12yo and older 2021 Influenza Quadravalent, MDCK , 0.5ml, preservative free (Flucelvax) 6mo and older 03/06/2019,01/09/2018 Influenza Quadravalent, MDCK , 0.5ml, with preservative (Flucelvax) 6mo and older 01/04/2017 Influenza trivalent, 0.5mL ( Fluzone High-dose) 65yo and older 02/20/2023,12/06/2021,01/12/2021 Influenza trivalent, with pr eservative (Fluzone; Afluria) 6mo and older 12/20/2015,12/20/2015,12/14/2014,12/14,12/10/2013,12/10/2013,12/03/2012 ,12/03/2012,11/27/2011,11/27/2011,10/28,11/15/2010,03/19/2009, 0 Pfizer (ages 12 & older) Biv [...] History Surgery Date Site/Laterality Comments COLONOSCOPY 01/29/2009 : 13 mm sigmoid colon polyp: Tubular adenoma KNEE SURGERY 2012 scope l knee COLONOSCOPY 03/08/2012 : no polyps KNEE SURGERY 12/2015 Left scope COLONOSCOPY 08/23/2017 : no polyps BREAST BIOPSY neg Medical History Medical History Date Comments History of colon polyps 01/29/2009 : 13-mm sigmoid colon polyp removed at colonoscopy 01/29/2009: Tubular adenoma. Negative colonoscopy 03/08/2012, no colon cancer screening needed for 5 years. Type 2 diabetes mellitus wit h obesity ([facility] V24, [facility] V28) 09/14/2017 Severe obesity (BMI 35.0-35. 9 with comorbidity) ([facility] V24, [facility] V28) 03/06/2019 Polycystic liver disease 06/20/2014 Osteopenia 02/20/2023 Hypothyroidism 04/25/2005 Hyperthyroidism, ablated with 22.8 mCi of iodine-131 on 12/29/2009 Hypertension 04/25/2005 Hyperlipidemia 01/04/2009 Compression fracture of T12 vertebra ([facility] V24, [facility] V28) 04/13/2014 Degenerative disc disease, lumbar 05/18/2014 Family History Medical History Relation Name Comments [...] Alive Brother 3 Constantine Alive Brother 4 Nancy Alive Father Half-Brother Maternal Grandfather Maternal Grandmother [...] Mass Index 34.49 08/18/2024 1:32 PM EDT Plan of Treatment Upcoming Encounters Date Type Department Care Team (Late st Contact Info) Description 11/14/2024 7:30 AM EDT Appointment Radiology Department - [address] [phone] 12/19/2024 8:20 AM EDT Office Visit Endocrinology - [address] [phone] Cami Dennis PA [address] [place] [address] 02/16/2025 8:15 AM EST Office Visit Adult Medicine [facility] [address] [place] [address] Sadaf Buckley MD [address] [place] [address] Health Maintenance Due Date Last Done Comments [...] Annual Foot Exam 10/16/2024 10/17/2023 Influenza Vaccine (#1) 2024 , 12/06/2021, 01/12/2021, Additional history exists Diabetes: Blood [...] Procedure Name Priority Date/Time Associated Diagnosis Comments BASIC METABOLIC PANEL Routine 05/16/2024 8:33 AM EDT Primary hypertension HEMOGLOBIN A1C Routine 05/16/2024 8:33 AM EDT Type 2 diabetes mellitus with obesity ([facility] V24, [facility] V28) LIPID PANEL WITH REFLEX TO DIRECT LDL Routine 05/16/2024 8:33 AM EDT Hyperlipidemia, unspecified hyperlipidemia type SCREENING MAMMOGRAPHY BI 2-VIEW BREAST INC CAD [...] mg/dL LAB CHEMISTRY METHOD 05/16/2024 10:45 AM [facility] Triglycerides 121 0 - 150 mg/dL LAB CHEMISTRY METHOD 05/16/2024 10:45 AM [facility] HDL 67 >=40 mg/dL LAB CHEMISTRY METHOD 05/16/2024 10:45 AM [facility] LDL Calculated 135(H) 0 - 100 mg/dL LAB CHEMISTRY METHOD 05/16/2024 10:45 AM [facility] VLDL Cholesterol Brian 24.2 mg/dL LAB CHEMISTRY METHOD 05/16/2024 10:45 AM [facility] Non HDL Chol. (LDL+VLDL) 159(H) <145 mg/dL LAB CHEMISTRY METHOD 05/16/2024 10:45 AM [facility] Chol/HDL Ratio 3.4 0.0 - 4.4 LAB CHEMISTRY METHOD 05/16/2024 10:45 AM [facility] Blood Venous blood specimen / Unknown Venipuncture / Unknown 05/16/2024 8:33 AM EDT 05/16/2024 8:33 AM EDT Cami NATHAN LAB BLOOD ORDERABLES Final Resul t Performing Organization Address City/[facility]/ZIP Co de Phone Number [facility] [address] [place] [address], [place] [phone] * (ABNORMAL) Hemoglobin A1c (05/16/2024 8:33 AM EDT) Hemoglobin A1C 7.0(H) <6.5 % LAB CHEMISTRY METHOD 05/16/2024 11:17 AM EDT [facility] Mean Bld Glu Estim. 154 mg/dL LAB CHEMISTRY METHOD 05/16/2024 11:17 AM EDT [facility] Blood Venous blood specimen / Unknown Venipuncture / Unknown 05/16/2024 8:33 AM EDT 05/16/2024 8:33 AM EDT Cami NATHAN LAB BLOOD ORDERABLES Final Resul t Performing Organization Address [facility]/ZIP Co de Phone Number [facility] [address] [place] [address], [place] [phone] * (ABNORMAL) Basic metabolic panel (05/16/2024 8:33 AM EDT) Sodium 140 133 - 145 mmol/L LAB CHEMISTRY METHOD 05/16/2024 10:44 AM EDT [facility] Potassium 4.8 3.5 - 5.5 mmol/L LAB CHEMISTRY METHOD 05/16/2024 10:44 AM EDT [facility] Chloride 104 96 - 110 mmol/L LAB CHEMISTRY METHOD 05/16/2024 10:44 AM EDT [facility] CO2 30 21 - 32 mmol/L LAB CHEMISTRY METHOD 05/16/2024 10:44 AM EDT [facility] Anion Gap 6 3 - 11 LAB CHEMISTRY METHOD 05/16/2024 10:44 AM EDT [facility] Glucose 118(H) 70 - 100 mg/dL LAB CHEMISTRY METHOD 05/16/2024 10:44 AM EDT [facility] BUN 12 5 - 25 mg/dL LAB CHEMISTRY METHOD 05/16/2024 10:44 AM EDT [facility] Creatinine 0.60 0.50 - 1.10 mg/dL LAB CHEMISTRY METHOD 05/16/2024 10:44 AM EDT [facility] eGFR 97 >=60 mL/min/1. 73m2 LAB CHEMISTRY METHOD 05/16/2024 10:44 AM EDT [facility] Comment:Calculation based on the Chronic Kidney Disease Epidemiology Collaboration (CKD-EPI) equation refit without adjustment for race. BUN/Creatinine Ratio 20.0 LAB CHEMISTRY METHOD 05/16/2024 10:44 AM EDT [facility] Calcium 9.6 8.5 - 10.5 mg/dL LAB CHEMISTRY METHOD 05/16/2024 10:44 AM EDT [facility] Blood Venous blood specimen / Unknown Venipuncture / Unknown 05/16/2024 8:33 AM EDT 05/16/2024 8:33 AM EDT us Cami NATHAN LAB BLOOD ORDERABLES Final Resul t [facility] [address] [place] [address], * SCREENING MAMMOGRAPHY BI 2-VIEW BREAST INC [...] Routine screening. No current breast complaints. Family history of breast cancer Comparison: Multiple priors [...] typically benign parenchymal asymmetries] IMPRESSION: : 1. No mammographic evidence of malignancy. BI-RADS Category 2 benign findings Recommendation: Routine annual screening mammography is recommended [address] [id number] Procedure Note Jonn Raymond MD - 12/12/2023 [...] Recommendation: Routine annual screening mammography is recommended [address] [address] Yennifer Geronimo MD IMG XR PROCEDURES Final Res ult * Diabetes Foot Exam (10/17/2023) Diabetes: Annual Foot Exam Abstracted Historical Provider HEALTH MAINTENANCE Final Result * Urine Albumin Creatinine Ratio (10/11/2023) Pathologist [facility] Urine Albumin Creatinine Ratio Abstracted [facility] Final Result * Depression Screening (08/10/2023) [facility] Depression Screening Abstracted [facility] Final Result * Falls Risk Assessment (02/20/2023) [facility] Falls Risk Assessment Abstracted [facility] Final Result * DXA BONE DENSITY STUDY 1+ SITS AXIAL SKEL (12/30/2020 9:36 AM EDT) Anatomical Region Laterality Modality Bone Densitometr y 09/09/2020 9:54 AM EDT Narrative 12/30/2020 12:50 PM EDT BONE DENSITY (DEXA) Lumbar Spine T-score is -1.3. (SD relative to 20-29 y/o adult) Z-score is 0.6. (SD relative to age matched peers) This is considered osteopenia by WHO criteria. Left Hip T-score is -1.0. Z-score is 0.6. This is considered osteopenia by WHO criteria. Lateral view of the spine demonstrates moderate to severe compression of the T12 vertebral body, unchanged from 07/01/2014. IMPRESSION: In the absence of trauma, compression fracture of a vertebral body is considered presumptive evidence of osteoporosis. The [facility] Department of Internal Medicine recommends using National [...] alternative screening schedule based on jin Callaway., [facility] March 16, 2011 for patients with osteopenia [...] body isconsidered presumptive evidence of osteoporosis. The [facility] Department of Internal Medicine recommendsusing National Osteoporosis [...] alternative screening schedule based on jin Callaway., NEJMJanuary 2011 for patients with osteopenia (based on hip BMD T-score) is as follows: * advanced osteopenia (T scores -2.00 to -2.49), BMD testing every year * moderate osteopenia (T scores -1.50 to -1.99), BMD testing every 5years mild osteopenia or normal BMD (T scores -1.50 and higher), BMD testingevery 15 years Cami NATHAN IMG DXA PROCEDURES Final Result * Colonoscopy (08/23/2017) [facility] Colonoscopy No interpretation , Abstracted Anatomical Region Laterality Modality Other Historical Provider HEALTH MAINTENANCE Final Result * Hepatitis C Screening (08/01/2012) [facility] Hepatitis C Screening Abstracted Historical Provider HEALTH MAINTENANCE Final Result from Last 3 Months or Most Recently Relevant to Health Maintenance Insurance [employer] [place] [employer] Care Teams Open Hearth Worker Relationship Specialty Start Date End Date Sadaf Buckley MD [address] [place] [address] PCP - General Internal Medicine 09/10/19
--- OUTSIDE RECORDS SUMMARY | 2024-09-01 08:11 | XMS_ITS | Patient Health Record ---
Author Organization [facility]ola [facility] Address [address] [place] [address] Care Team Providers Care Hand Blocker Name Role Phone Sadaf Buckley Primary Care Provider Cristina Evangelista Unavailable [phone] Allergies Allergen (clinical drug ingredient) Drug/Non Drug Allergy documented on EMR Reaction Allergy Type Onset Date Status cephalexin Cephalexin vomiting Drug Allergy Activ e Reason For Referral No Information Medications Medication SIG (Take, Route, Frequency, Duration) Notes Start Date End Date Status Euthyrox 25 MCG 1tab Oral Once a day Active Januvia 100 MG 1 tablet Oral Once a day Active Extra Depth Orthopedic Shoes (1 Pair) with Customized Heat Molded Multidensity Innersoles (3 Pair) as directed Dx: NIDDM/Polyneuropathy (E11.42), Hammertoe Foot Deformity (M20.41,M20.42), Preulcerative Skin Lesion(s) (L85.1 03/05/2020 Active metFORMIN HCl 500 MG 1 tab Oral Three a day Active Lisinopril 20 MG 1 tablet Oral Once a day Active Tylenol PRN Active Immunizations Vaccine Route Administration Date Status Comme nts Influenza Unknown 12/29/2019 Administered Social History Tobacco Use: Social History Observation Description Date Details (start date - stop date) Former Smoker NA - NA Tobacco Use/Smoking Question Answer Notes Are you a: former smoker Additional Findings: Tobacco Non-User Current no n-smoker Alcohol Screen Question Answer Notes Did you have a drink containing alcohol in the p ast year? No Points 0 Interpretation Negative Tobacco use other than smoking: Question Answer Notes Are you an other tobacco user? No Problems Problem Type SNOMED Code ICD Code Onset Dates Problem Status W/U Status Risk Notes Problem Acquired hammer toe of right foot (7832276757516454 ) Other hammer toe(s) (acquired), right foot (M20.41) Active confirmed Problem Acquired hammer toe of left foot (1388285001305567 ) Other hammer toe(s) (acquired), left foot (M20.42) Active confirmed Problem Polyneuropathy due to type 2 diabetes mellitus (124099085) Type 2 diabetes mellitus with polyneuropathy (E11.42) Active confirmed Plan Of Treatment No Information Insurance Providers Payer Name Payer Address Payer Phone Subscriber Number Group Number Insured Name Patient Relationship to Insured Coverage Start Date Coverage End Date Blue[employer] 65 Medicare Preferred [address] [place] [address] [id number] Nhung Berkowitz Self - patient is the insured Medical (General) History Medical History History ICD Code Arthritis Back,Hip,and Knee pain CAD (Cholesterol) Diabetic High blood pressure thyroid Measles Chicken pox Mumps Surgical History Surgery Date(Month/Year) knee surgery 04/03/11,01/11
[2024-09-01 10:23] LABS: Anion Gap 12 (12-20); Blood Urea Nitrogen 19 mg/dL (9-16); Calcium 9.8 mg/dL (8.4-10.2); Carbon Dioxide 29 mmol/L (22-29); Chloride 102 mmol/L (96-108); Estimated Glomerular Filt Rate > 60; Potassium 4.1 mmol/L (3.3-5.1); Sodium 139 mmol/L (135-145)
== END 2024-09-01 08:06 | disposition home or self-care (01) ==
LOC: HO.LAB 08:05
PROVIDERS: PCP Internal Medicine; Visit Provider Nurse Practitioner Family
DX: I42.9 Cardiomyopathy, unspecified (principal)
CPT/HCPCS: 36415; 80048

== ENCOUNTER 2024-10-09 09:20 | Outpatient (AMB) | payer MEDICARE, SELFPAY ==
--- OUTSIDE RECORDS SUMMARY | 2024-07-23 06:00 | XMS_ITS ---
Author Organization [facility] Address [address] [address] Care Team Providers Care Document Imaging Manager Name Role Phone Sadaf Buckley Primary Care Provider Unavailabl DUANE Reyes Unavailable [phone] REASON FOR VISIT annual diabetic follow up Encounters Encounter Location Date Provider Diagnosis [facility] [address] [address] 07/23/2024 DUANE LAI Plan Of Treatment Next Appt Details Provider Name:DUANE LAI, 08/12/2025 08:00:00 AM, [address] [address], [place], [address], Progress Notes * Nhung HERNANDEZDOB: (68 yo F)Acc No.[id number]:07/23/2024 Progress Note Patient: Nhung WOODY Provider: Zahida Lai DPM :1955 A ge:68 Y S ex:Female Date:07/23/2024 Phone: Address:[address] [id number] Pcp:Sadaf Buckley Subjective: * Chief Complaints: * 1 . Annual diabetic follow up. * Medical History: Objective: * Vitals: Assessment: Plan: * Treatment: * Billing Information: * Visit Code: * Procedure Codes: * Electronic signature of FARZANA LAI D.P.M on 10/09/2024 at 09:51 AM EDT Sign off status: Pending * Provider: Zahida Lai DPM Date: 07/23/2024 Generated for Fani delaney/Megan/eTransmitting on: 10/09/2024 09:51 AM EDT
--- OUTSIDE RECORDS SUMMARY | 2024-10-09 09:51 | XMS_ITS | Patient Health Record ---
Author Organization [facility] Address [address] [place] [address] Care Team Providers Care Farmworker General Name Role Phone Sadaf Buckley Primary Care Provider Cristina Evangelista Unavailable [phone] Allergies Allergen (clinical drug ingredient) Drug/Non Drug [...] Problem Acquired hammer toe of right foot ([id number] ) Other hammer toe(s) (acquired), right foot (M20.41) Active confirmed Problem Acquired hammer toe of left foot (6141305762979991 ) Other hammer toe(s) (acquired), left foot (M20.42) Active confirmed Problem Polyneuropathy due to type 2 diabetes mellitus (310071879) Type 2 diabetes mellitus with polyneuropathy (E11.42) Active confirmed Plan Of Treatment No Information Insurance Providers Payer Name Payer Address Payer Phone Subscriber Number Group Number Insured Name Patient Relationship to Insured Coverage Start Date Coverage End Date Blue[employer] 65 Medicare Preferred [address] [place] [address] [id number] Nhung Berkowitz Self - patient is the insured Medical (General) History Medical History History ICD Code Arthritis Back,Hip,and Knee pain CAD (Cholesterol) Diabetic High blood pressure thyroid Measles Chicken pox Mumps Surgical History Surgery Date(Month/Year) knee surgery 04/03/11,01/11
--- OUTSIDE RECORDS SUMMARY | 2024-10-09 09:51 | XMS_ITS ---
Author Name [facility] Organization Unknown Care Team Organization Name Specialty Phone Email Start Date End Da te [facility] Sadaf Buckley Primary Care 01/03/2022
--- OUTSIDE RECORDS SUMMARY | 2024-10-09 09:51 | XMS_ITS | Clinical Summary ---
Author Organization [facility] [address] [facility] Address [address] [facility] [place] [address] Phone Care Team Providers Care Personal Attendant Name Role Phone Sadaf Buckley MD Primary Care Provider [phone] Allergies Active Allergy Reactions Criticality Noted Date Comments Atorvastatin Low 08/10/2023 Reflux, severe Cephalexin Nausea And Vomiting 10/18/2006 Sensitivity with this medication. Kcnhrdr-Mlt-Ccw Reductase Inhibitors 09/14/2017 Elevated LFTS Medications nystatin-triamc [...] time each day with breakfast. 4 Active aspirin 81 mg EC tablet Take [...] each day. 90 tablet 1 5 Active dulaglutide (TRULICITY) 3 mg/0.5 mL pen injector injectionIndica tions:Type 2 diabetes mellitus with obesity ([facility] V24, [facility] V28) Inject 0.5 mL (3 mg total) under the skin every 7 (seven) days. 3 mL 5 5 Active dulaglutide (TRULICITY) 3 mg/0.5 mL pen injector injectionIndica tions:Type 2 diabetes mellitus with obesity ([facility] V24, [facility] V28) Inject 0.5 mL (3 mg total) under the skin every 7 (seven) days. 6 mL 1 5 10/04/19 25 Discontinu ed(Reorder ) Active Problems Problem Noted Date Diagnosed Date Osteopenia 02/20/2023 Severe obesity (BMI 35.0-35. 9 with comorbidity) ([facility] V24, [facility] V28) 03/06/2019 Lichen sclerosus 08/13/2018 Overview (08/15/2024): Type 2 diabetes mellitus wit h obesity ([facility] V24, [facility] V28) 09/14/2017 Polycystic liver disease 06/20/2014 Degenerative disc disease, lumbar 05/18/2014 Compression fracture of T12 vertebra ([facility] V24, [facility] V28) 04/13/2014 Sciatica 12/03/2012 Overview (12/06/2023): Herniated L4-5 disc on left, MRI, 11/14/2012 Nuclear sclerosis 04/17/2011 Overview (12/06/2023): Noted by Dr. Oliveira on 10/21/2010 exam. Hyperlipidemia 01/04/2009 Hypertension 04/25/2005 Hypothyroidism 04/25/2005 Overview (12/06/2023): Hyperthyroidism, ablated with 22.8 mCi of iodine-131 on 12/29/2009 Encounters Date Type Department Care Team Description 10/03/2024 Telephone Adult Medicine [address] [phone] [place] 08/18/2024 1:30 PM EDT Office Visit Adult Medicine [address] [phone] Sadaf Buckley MD Colitis (Primary Dx); Primary hypertension; Acquired hypothyroidism; Type 2 diabetes mellitus with obesity (CMS/HCC V24, CMS/HCC V28); Other hyperlipidemia 08/11/2024 Telephone Adult [address] [phone] Sadaf Buckley MD Hospital Follow-up from Last [...] colon polyp: Tubular adenoma KNEE SURGERY 2011 scope l knee COLONOSCOPY 03/08/2012 : no polyps KNEE SURGERY 12/2015 Left scope COLONOSCOPY 08/23/2017 : no polyps BREAST BIOPSY neg Medical History Medical History Date Comments History of colon polyps 01/29/2009 : 13-mm sigmoid colon polyp removed at colonoscopy 01/29/2009: Tubular adenoma. Negative colonoscopy 03/08/2012, no colon cancer screening needed for 5 years. Type 2 diabetes mellitus wit h obesity ([facility] V24, [facility] V28) 09/14/2017 Severe obesity (BMI 35.0-35. 9 with comorbidity) ([facility] V24, [facility] V28) 03/06/2019 Polycystic liver disease 06/20/2014 Osteopenia 02/20/2023 Hypothyroidism 04/25/2005 Hyperthyroidism, ablated with 22.8 mCi of iodine-131 on 12/29/2009 Hypertension 04/25/2005 Hyperlipidemia 01/04/2009 Compression fracture of T12 vertebra ([facility] V24, [facility] V28) 04/13/2014 Degenerative disc disease, lumbar 05/18/2014 Family History Medical History Relation Name Comments Colon cancer Brother 1 Emmanuel s/p CVA age 71 Coronary artery disease Brother 2 Eleazar pace maker Coronary artery disease Brother 3 Constantine s/p 2 stents Throat cancer Brother 4 Merval and renal canc er; non-smoker Esophageal cancer Father CABG Half-Brother wyatt martins ss Diabetes Maternal Grandmother Stroke Mother dementia [...] 7:30 AM EDT Appointment Radiology Department - [address] [phone] 12/19/2024 8:20 AM EDT Office Visit Endocrinology - [address] [address] [place] [address] Cami Dennis PA [address] [place], [place] 02/16/2025 8:15 AM EST Office Visit Adult Medicine [address] [phone] Sadaf Buckley MD [address] [place], [place] Health Maintenance Due Date Last Done Comments RSV Immunization Adult Patients (1 - Risk 60-74 years 1-dose series) 2013 Social Influencers of Health Screening 02/04/2022 COVID-19 Vaccine ( season) 2023 12/16/2022, 2021, 2021, Additional history exists Falls Risk Assessment 02/21/2024 02/20/2023 Depression Screening 02/27/2024 08/10/2023 Medicare Annual Wellness Visit 08/09/2024 08/10/2023 [...] EDT Type 2 diabetes mellitus with obesity ([facility] V24, [facility] V28) LIPID PANEL WITH REFLEX [...] mg/dL LAB CHEMISTRY METHOD 05/16/2024 10:45 AM [facility] Triglycerides 121 0 - 150 mg/dL LAB CHEMISTRY METHOD 05/16/2024 10:45 AM [facility] HDL 67 >=40 mg/dL LAB CHEMISTRY METHOD [facility] LDL Calculated 135(H) 0 - 100 mg/dL LAB CHEMISTRY METHOD 05/16/2024 10:45 AM [facility] VLDL Cholesterol Brian 24.2 mg/dL LAB CHEMISTRY METHOD 05/16/2024 10:45 AM [facility] Non HDL Chol. (LDL+VLDL) 159(H) <145 mg/dL LAB CHEMISTRY METHOD 05/16/2024 10:45 AM EDT [facility] Chol/HDL Ratio 3.4 0.0 - 4.4 LAB CHEMISTRY METHOD 05/16/2024 10:45 AM EDT [facility] Blood Venous blood specimen / Unknown Venipuncture / Unknown 05/16/2024 8:33 AM EDT 05/16/2024 8:33 AM EDT us Cami NATHAN LAB BLOOD ORDERABLES Final Resul t Performing Organization Address [facility] de Phone Number [facility] [address] [place] [address], [place] [phone] * (ABNORMAL) Hemoglobin A1c (05/16/2024 8:33 AM EDT) Hemoglobin A1C 7.0(H) <6.5 % LAB CHEMISTRY METHOD 05/16/2024 11:17 AM EDT [facility] Mean Bld Glu Estim. 154 mg/dL LAB CHEMISTRY METHOD 05/16/2024 11:17 AM EDT [facility] Blood Venous blood specimen / Unknown Venipuncture / Unknown 05/16/2024 8:33 AM EDT 05/16/2024 8:33 AM EDT us Cami NATHAN LAB BLOOD ORDERABLES Final Resul t Performing Organization Address [facility] [address] [facility] de Phone Number [facility] [address] [place] [address], [place] [phone] * (ABNORMAL) Basic metabolic panel (05/16/2024 8:33 AM EDT) Sodium 140 133 - 145 mmol/L LAB CHEMISTRY METHOD 05/16/2024 10:44 AM EDT [facility] Potassium 4.8 3.5 - 5.5 mmol/L LAB CHEMISTRY METHOD 05/16/2024 10:44 AM EDT [facility] Chloride 104 96 - 110 mmol/L LAB CHEMISTRY METHOD 05/16/2024 10:44 AM [facility] CO2 30 21 - 32 mmol/L LAB CHEMISTRY METHOD 05/16/2024 10:44 AM [facility] Anion Gap 6 3 - 11 LAB CHEMISTRY METHOD 05/16/2024 10:44 AM [facility] Glucose 118(H) 70 - 100 mg/dL LAB CHEMISTRY METHOD 05/16/2024 10:44 AM [facility] BUN 12 5 - 25 mg/dL LAB CHEMISTRY METHOD 05/16/2024 10:44 AM [facility] Creatinine 0.60 0.50 - 1.10 mg/dL LAB CHEMISTRY METHOD 05/16/2024 10:44 AM [facility] eGFR 97 >=60 mL/min/1. 73m2 LAB CHEMISTRY METHOD 05/16/2024 10:44 AM [facility] Comment:Calculation based on the Chronic Kidney Disease Epidemiology Collaboration (CKD-EPI) equation refit without adjustment for race. BUN/Creatinine Ratio 20.0 LAB CHEMISTRY METHOD 05/16/2024 10:44 AM [facility] Calcium 9.6 8.5 - 10.5 mg/dL LAB CHEMISTRY METHOD 05/16/2024 10:44 AM [facility] Blood Venous blood specimen / Unknown Venipuncture / Unknown 05/16/2024 8:33 AM EDT 05/16/2024 8:33 AM EDT us Cami NATHAN LAB BLOOD ORDERABLES Final Resul t [facility] [address] [place] [address], * SCREENING MAMMOGRAPHY BI 2-VIEW BREAST INC [...] Recommendation: Routine annual screening mammography is recommended [address] [phone] Procedure Note Jonn Raymond MD - 12/12/2023 [...] Recommendation: Routine annual screening mammography is recommended [address] [address] [place] Yennifer E Eppsteiner MD IMG XR PROCEDURES Final Res ult * Diabetes Foot Exam (10/17/2023) [facility] Diabetes: Annual Foot Exam Abstracted Result [facility] Provider IN HEALTH MAINTENANCE Final Result * Urine Albumin Creatinine Ratio (10/11/2023) [facility] Urine Albumin Creatinine Ratio Abstracted Result [facility] HEALTH MAINTENANCE Final Result * Depression Screening (08/10/2023) [facility] Depression Screening Abstracted Result [facility] HEALTH MAINTENANCE Final Result * Falls Risk Assessment (02/20/2023) [facility] Falls Risk Assessment Abstracted Result [facility] HEALTH MAINTENANCE Final Result * DXA BONE [...] is considered presumptive evidence of osteoporosis. The [facility] Department of Internal Medicine recommends [...] FRAX. Optional alternative screening schedule based on ayla Callaway al., [facility] March 16, 2011 for patients with osteopenia [...] body isconsidered presumptive evidence of osteoporosis. The [facility] Department of Internal Medicine recommendsusing National [...] FRAX. Optional alternative screening schedule based on ayla Callaway al., NEJMJanuary 2011 for patients with osteopenia (based on hip BMD T-score) is as follows: * advanced osteopenia (T scores -2.00 to -2.49), BMD testing every year * moderate osteopenia (T scores -1.50 to -1.99), BMD testing every 5years mild osteopenia or normal BMD (T scores -1.50 and higher), BMD testingevery 15 years Cami NATHAN IMG DXA PROCEDURES Final Result * Colonoscopy (08/23/2017) [facility] Colonoscopy No interpretation , Abstracted Anatomical Region Laterality Modality Other Historical Provider HEALTH MAINTENANCE Final Result * Hepatitis C Screening (08/01/2012) [facility] Hepatitis C Screening Abstracted Historical Provider HEALTH MAINTENANCE Final Result from Last 3 Months or Most Recently Relevant to Health Maintenance Insurance [employer] Care Teams Personal Attendant Relationship Specialty Start Date End Date Sadaf Buckley MD [address] [place] [address] PCP - General Internal Medicine 09/10/19
[2024-10-09 10:02] VITALS: BP 124/64; PULSE 73; BMI 35.8
--- NOTE | 2024-10-09 10:02 | A.OFFVIS_ITS ---
Vital Signs 10/09/24 10:02 Height 5 ft 4 in Weight 208 lb 8.917 oz BMI 35.8 BP 124/64 Blood Pressure Location Lt brachial Position Sitting Pulse 73 Pulse Source Pulse Oximeter Intake Visit Reasons: 8 week f/up Accompanied by: Self / Same As Patient Allergies Czzcqxt-OLV-IuN Reductase Inhibitor Adverse Reaction (Severe, Verified 10/09/24 10:06) Gastrointestinal Upset cephalexin (CEPHALEXIN) Adverse Reaction (Unknown, Verified 10/09/24 10:06) NAUSEA & VOMITING Medication List - Last Reconciled 10/09/24 by Pamela Rodríguez, RETAIL ACCOUNT EXECUTIVE-C acetaminophen 1,000 mg PO Q6H PRN aspirin (Ecotrin Low Strength) 81 mg PO DAILY azithromycin 500 mg PO DAILY 3 days calcium carbonate (Calcium 600) 1,200 mg PO DAILY cholecalciferol (vitamin D3) (Vitamin D3) 50 mcg PO DAILY dulaglutide (Trulicity) 3 mg subcut FR ezetimibe 10 mg PO DAILY levothyroxine 25 mcg PO DAILY@0600 metformin 500 mg PO BIDWM metoprolol succinate ER (Toprol XL) 25 mg PO DAILY sacubitril-valsartan 49-51 mg (Entresto) 1 tab PO BID 30 days HPI HPI 8 week f/up: Details: Nhung is a 68-year-old female with past medical history of diabetes, hypertension, hyperlipidemia with statin intolerance, obesity, left bundle branch block, recent finding of cardiomyopathy who was started on medication management and now presents for follow-up. Today she reports that she has been doing well since her last visit. She did have 1 episode when she was very active and did mowing in the very hot weather. She did develop some shortness of breath and tightness in her scapular region. When she rested for a few minutes the symptoms did relieve. Otherwise she has g ood activity tolerance with no concerning symptoms. No usual shortness of breath, PND, orthopnea or edema. No lightheadedness, presyncope, syncope, falls. No chest discomfort at rest or with activity. No concern for sleep apnea. Blood pressure has been well controlled. She does not drink alcohol beverages. Takes meds as directed. [facility] Medical History Type 2 diabetes mellitus Left bundle branch block Hypothyroidism Hyperlipidemia HTN (hypertension) Surgical History H/O knee surgery Family History Maternal Grandmother Diabetes Father Stroke Cancer Heart problem Mother No problems noted. Social History Household Members: Spouse Housing: House Do you presently have visiting nurse or other home services: No Alcohol intake: never Patient Tobacco Use Status: Never used Tobacco Review of Systems Const All systems reviewed & are unremarkable except as noted in HPI and below ENT Denies dizziness Card Denies chest pain, Denies chest pain at rest, Denies chest pain with activity, Denies rapid heart rate, Denies pedal edema, Denies edema, Denies leg edema, Denies lightheadedness, Denies palpitations, Denies dyspnea, Denies dyspnea on exertion and Denies orthopnea Resp Denies cough, Denies dyspnea and Denies dyspnea on exertion GI Denies hematochezia and Denies change in stool character Musc Denies abnormal gait, Denies limited range of motion, Denies muscle cramps, Denies muscle weakness, Denies numbness, Denies radiating pain into limb, Denies stiffness and Denies tingling Neuro Denies abnormal gait, Denies dizziness, Denies numbness and Denies tingling Endo Denies palpitations Physical Exam Vital Signs: Last Vital Signs Pulse 73 10/09/24 10:02 BP 124/64 10/09/24 10:02 BMI result Body Mass Index 35.8 Const General: cooperative, healthy appearing, comfortable and no acute distress Orientation/consciousness: patient oriented x3 Neck Neck: Yes normal visual inspection and Yes no JVD Resp Effort & Inspection: normal respiratory effort Auscultation: clear to auscultation bilaterally, no crackles, no rales, no rhonchi and no wheezes Cardio Rate: regular rate Rhythm: regular rhythm Heart sounds: S1 normal heart sound present, S2 normal heart sound present, no gallops, no murmurs and no rubs Neuro General: patient oriented x3 Extrem General: Yes normal to inspection, No no pedal edema and No calf tenderness Psych Appearance: grossly normal Mental Status: mental status grossly normal Speech and movement: Normal speech and movement present Assessment & Plan Assessment & Plan (1) Cardiomyopathy: Code(s): I42.9 - Cardiomyopathy, unspecified Category: Medical Plan: Cardiac evaluation for atypical discomfort and EKG showing left bundle branch block. Echocardiogram 08/15/2024 shows EF 25-30%, septal dyssynchrony due to left bundle branch block mild calcification of the aortic valve. She had a nuclear stress test done 08/15/2024 showing probable normal myocardial perfusion, no clear infarct or ischemia. The Diagnosis of nonischemic cardiomyopathy was new for her last visit. May be related to left bundle branch block. She was continued on metoprolol XL and started on Entresto for neurohormonal modulation. Labs done 09/01/2024 showed potassium 4.1, creatinine 0.62. She does not appear fluid overloaded on examination today. She is not requiring diuretics at this time. Signs and symptoms of heart failure reviewed with her. Will plan for repeat limited echo after 3 months of GDMT to re-evaluate EF. If it remains less than 35% ICD may be considered. Cardiology follow-up in 3 months, sooner if needed (2) Left bundle branch block: Code(s): I44.7 - Left bundle-branch block, unspecified Category: Medical Plan: Present on EKG, unknown longevity (3) HTN (hypertension): Code(s): I10 - Essential (primary) hypertension Category: Medical Qualifiers: Hypertension type: primary hypertension Qualified Code(s): I10 - Essential (primary) hypertension Plan: Blood pressure goal less than 130/80. Well controlled at this time. Continue metoprolol and Entresto. (4) Hyperlipidemia: Code(s): E78.5 - Hyperlipidemia, unspecified Category: Medical Qualifiers: Hyperlipidemia type: unspecified Qualified Code(s): E78.5 - Hyperlipidemia, unspecified Plan: [place] LDL goal less than 70 in patient with diabetes. Intolerant to statins. She is on Zetia 10 mg daily. Followed by PCP. Plan I discussed with the patient the management of heart failure with reduced ejecti on fraction, emphasizing the importance of medication adherence to Entresto and metoprolol. We reviewed the potential need for a defibrillator if the echocardiogram does not show improvement, explaining the procedure and its benefits. The patient was advised to monitor for symptoms of worsening heart failure and to maintain activity levels within tolerance to manage knee osteoarthritis. . Orders: Orders CA Echo Limited 11/26/24 I42.9 - Cardiomyopathy, unspecified, I44.7 - Left bundle-branch block, unspecified Patient Instructions: - Continue taking Entresto and metoprolol as prescribed. - Monitor for new symptoms like shortness of breath or leg swelling. - Maintain activity levels within tolerance - Attend Limited echocardiogram appnt - Cardiology follow up 3 months Patient was informed and verbally consented to the use of an ambient scribe for clinic note documentation during this visit. Visit time spent on chart review, interview, assessment, orders, documentation. Coding Level of Care Code Est Pt Level 3 (03247) Complex EM visit Add On G2211 Diagnoses Cardiomyopathy I42.9 Left bundle branch block I44.7 Primary hypertension I10 Hypertension type: primary hypertension Hyperlipidemia, unspecified hyperlipidemia type E78.5 Hyperlipidemia type: unspecified Time Spent (min) 24
== END 2024-10-09 10:32 | disposition home or self-care (01) ==
LOC: HO.HCS 09:21
PROVIDERS: PCP Internal Medicine; Visit Provider Nurse Practitioner Family
DX: I42.9 Cardiomyopathy, unspecified (principal); I44.7 Left bundle-branch block, unspecified; I10 Essential (primary) hypertension; E78.5 Hyperlipidemia, unspecified
CPT/HCPCS: 99213; G2211

== ENCOUNTER → 2024-10-09 09:20 | Outpatient (BNVA) | payer MEDICARE, SELFPAY | PROVIDERS: PCP Internal Medicine; Visit Provider Nurse Practitioner Family | DX: I10 Essential (primary) hypertension (principal); E78.5 Hyperlipidemia, unspecified; I44.7 Left bundle-branch block, unspecified; I42.9 Cardiomyopathy, unspecified | CPT/HCPCS: 99212 ==

== ENCOUNTER → 2024-11-27 07:48 | Outpatient (REF) | payer MEDICARE, SELFPAY ==
--- OUTSIDE RECORDS SUMMARY | 2024-07-23 06:00 | XMS_ITS ---
Author Organization [facility] Address [address] [address] Care Team Providers Care Butcherette Name Role Phone Sadaf Buckley Primary Care Provider Unavailabl DUANE Reyes Unavailable [phone] REASON FOR VISIT annual diabetic follow up Encounters Encounter Location Date Provider Diagnosis [facility] [address] [address] 07/23/2024 DUANE LAI Plan Of Treatment Next Appt Details Provider Name:DUANE LAI, 08/12/2025 08:00:00 AM, [address] [address], [place], [address], Progress Notes * Nhung HERNANDEZDOB: (68 yo F)Acc No.[id number]:07/23/2024 Progress Note Patient: Nhung WOODY Provider: Zahida Lai DPM :1955 A ge:68 Y S ex:Female Date:07/23/2024 Phone: Address:[id number] Pcp:Sadaf Buckley Subjective: * Chief Complaints: * 1 . Annual diabetic follow up. * Medical History: Objective: * Vitals: Assessment: Plan: * Treatment: * Billing Information: * Visit Code: * Procedure Codes: * Electronic signature of FARZANA LAI D.P.M on 11/27/2024 at 07:50 AM EDT Sign off status: Pending * Provider: Zahida Lai DPM Date: 0 07/23/2024 Generated for Fani delaney/Megan/eTransmitting on: 1 07:50 AM EDT
--- OUTSIDE RECORDS SUMMARY | 2024-11-18 09:15 | XMS_ITS | Encounter Summary ---
Author Organization [employer] Address [address] [place] [address] Care Team Providers Care Skein Bander Name Role Phone Unavailable Primary Care Provider Unavailabl e Encounter Details Date Type Department Care Team (Late st Contact Info) Description 11/18/2024 9:15 AM EDT Nurse Only [facility] [address] [place] [address] Elizabeth Lawson RN Encounter for immunization Social History Tobacco Use Types Packs/Day Years Used Date Smoking Tobacco: Never Assessed Comments Unknown Sex and Gender Information Value Date Recorded Sex Assigned at Female 11/20/2024 10:12 AM EDT Legal Sex Female 10:11 AM EDT Gender Identity Female 11/20/2024 10:12 AM EDT Sexual Orientation Choose not to disclose 2024 10:12 AM EDT documented as of this encounter Progress Notes * Elizabeth Laswon RN - 11/18/2024 9:15 AM EDT Subjective Patient ID: Nhung Berkowitz is a 68 y.o. female who presents for Flu vaccine. Pt here for Flu Vaccine. Per record and patient reporting indicate that patient has no allergies that contraindicate today's vaccinations. Vaccine administered in [facility]. Pt tolerated well, pt willstay for observation for 15minutes post vaccination for observation by nurse. documented in this encounter Plan of Treatment Not on file documented as of this encounter Visit Diagnoses Diagnosis Encounter for immunization documented in this encounter
--- NOTE | 2024-11-27 07:50 | CA_ITS ---
Transthoracic Echocardiogram Patient (Last, First, Middle): Nhung Berkowitz A Gender: F Date of : 1955 Age: 68 Procedure Date: 11/27/2024 Procedure Type: Transthoracic Echocardiogram Location: OP Height: 162.56 cm Weight: 94.35 kg BSA: 1.99 m2 Heart Rate: 67 bpm BP: 124 / 64 mmHg Gas Station Supervisor: SB Referring MD: Pamela Rodríguez [employer]-C Symptoms: I42.9 - Cardiomyopathy, unspecified, I44.7 LBBB, unspecified Study Quality: Adequate/Limited ordered ECG Rhythm: Sinus Conclusions: - The left ventricular systolic function is moderate to severely decreased. The visually estimated ejection fraction is between 30-35%. Findings Procedure Information Contrast agent, definity, is being given per protocol without apparent complications. Left Ventricle Normal left ventricular cavity size. There is normal left ventricular wall thickness. The left ventricular systolic function is moderate to severely decreased. The visually estimated ejection fraction is between 30-35%. There is paradoxical septal motion consistent with a left bundle branch block. Venous The inferior vena cava is normal in size and collapses greater than 50% with inspiration. Prior Study Comparison No significant change compared to prior study dated: 08/15/2024. Measurements 2D Linear Measurements IVSd: 1.01 0.6-0.9/0.6-1.0 cm LVIDd: 5.56 3.9-5.3/4.2-5.9 cm LVIDd Index: 2.79 2.4-3.2/2.2-3.1 cm/m2 LVIDs: 4.59 2.0-3.6 cm LVPWd: 1.03 0.7-1.1 cm LV Mass: 277.78 67-162/88-224 g LV Mass Index: 139.59 43-95/49-115 g/m2 LVOT Diam: 2.20 3.0+(-)1.3 cm 2D Systolic Function EF 4C: 49.10 >55% EF 2C: 35.20 >55% EF BiP: 43.90 >55% LVOT LVOT Diam: 2.20 LVOT Area: 3.80 Updated in Other Vendor System with Status of Final Joseph Poole MD electronically signed on 11/29/2024 1:21:49 PM with status of Final
--- OUTSIDE RECORDS SUMMARY | 2024-11-27 07:50 | XMS_ITS | Clinical Summary ---
Author Organization [employer] Address [address] [place] [address] Care Team Providers Care Planting Material Unloader Name Role Phone Unavailable Primary Care Provider Unavailabl e Encounters Date Type Department Care Team Description 11/18/2024 9:15 AM EDT Nurse Only [facility] [address] [place] [address] Elizabeth Lawson RN Encounter for immunization from Last 3 Months Immunizations Immunization Administration Dates Next Due Influenza, High Dose Seasonal, Preservative Free 11/18/2024 Social History Tobacco Use Types Packs/Day Years Used Date Smoking Tobacco: Never Assessed Comments Unknown Sex and Gender Information Value Date Recorded Sex Assigned at Female 11/20/2024 10:12 AM EDT Legal Sex Female 10:11 AM EDT Gender Identity Female 11/20/2024 10:12 AM EDT Sexual Orientation Choose not to disclose 2024 10:12 AM EDT Plan of Treatment Health Maintenance Due Date Last Done Comments CT Colonography 1953 Colonoscopy 1953 Colorectal Cancer Screening 1953 Depression Screening 1953 FIT DNA/Cologuard 1953 FIT 1953 FOBT 1953 Lipid Panel 1953 SDOH Screening 1953 Sigmoidoscopy 1953 Alcohol/Substance Use Screening 1965 Tobacco Screening 1965 Hepatitis C Screening 12/23/1971 Hepatitis A Vaccines (1 of 2 - Risk 2-dose series) 1972 Hepatitis B Vaccines (1 of 3 - Risk 3-dose series) 2013 RSV Patients and Patients Aged 60 years or older (1 - Risk 60-74 years 1-dose series) 2013 COVID-19 Vaccine ( season) 2024 12/16/2022, 2021, 06/21/2021, Additional history exists Mammogram 11/14/2026 11/14/2024, 11/14/2024 DTaP/Tdap/Td Vaccines (4 - Td or Tdap) 04/19/2032 04/19/2022, 04/19/2022, 04/01/2012, Additional history exists Zoster Vaccines Completed 09/11/2021, 06/26, 08/12/2015 Pneumococcal Vaccine: 50+ Years Completed 08/18/2022, 06/12/2019, 10/16/2007 Influenza Vaccine Completed 11/18/2024, , 02/20/2023, Additional history exists HIB Vaccines Aged Out No longer eligi [...] patient's age to complete this topic Meningococcal Vaccine Aged Out No hyun moises eligible based on patient's age to complete this topic RSV under 20 months Aged Out No longe r eligible based on patient's age to complete this topic Rotavirus Vaccines Aged Out No longer eligible based on patient's age to complete this [place] [address] [facility] [address] , [address] [place] [address]
--- OUTSIDE RECORDS SUMMARY | 2024-11-27 07:50 | XMS_ITS | Patient Health Record ---
[facility] [place] Address [address] [place] [address] Care Team Providers Care Chief Medical Director Name Role Phone Sadaf Buckley Primary Care Provider Cristina Evangelista Unavailable [phone] Allergies Allergen (clinical drug ingredient) Drug/Non Drug [...] Problem Acquired hammer toe of right foot (3403330920493848 ) Other hammer toe(s) (acquired), right foot (M20.41) Active confirmed Problem Acquired hammer toe of left foot ([id number] ) Other hammer toe(s) (acquired), left foot (M20.42) Active confirmed Problem Polyneuropathy due to type 2 diabetes mellitus (645694021) Type 2 diabetes mellitus with polyneuropathy (E11.42) Active confirmed Plan Of Treatment No Information Insurance Providers Payer Name Payer Address Payer Phone Subscriber Number Group Number Insured Name Patient Relationship to Insured Coverage Start Date Coverage End Date BlueCare 65 Medicare Preferred [address] [place] [address] [id number] Nhung Berkowitz Self - patient is the insured Medical (General) History Medical History History ICD Code Arthritis Back,Hip,and Knee pain CAD (Cholesterol) Diabetic High blood pressure thyroid Measles Chicken pox Mumps Surgical History Surgery Date(Month/Year) knee surgery 04/03/11,01/11
--- OUTSIDE RECORDS SUMMARY | 2024-11-27 07:50 | XMS_ITS | Clinical Summary ---
Author Organization [facility] [address] [facility] Address [address] [place] [address] Phone Care Team Providers Care Web Site Admin Name Role Phone Sadaf Buckley MD Primary Care Provider [phone] Allergies Active Allergy Reactions Criticality Noted Date Comments Atorvastatin Low 08/10/2023 Reflux, severe Cephalexin Nausea And Vomiting 10/18/2006 Sensitivity with this medication. Leegkhs-Ukt-Tvi Reductase Inhibitors 09/14/2017 Elevated LFTS Medications nystatin-triamc [...] time each day with breakfast. 02/11/2024 Active aspirin 81 mg EC tablet Take [...] time each day. 90 tablet 1 08/18/2024 Active dulaglutide (TRULICITY) 3 mg/0.5 mL pen injector injectionIndica tions:Type 2 diabetes mellitus with obesity Inject 0.5 mL (3 mg total) under the skin every 7 (seven) days. 3 mL 5 10/06/2024 Active Active Problems Problem Noted Date Diagnosed Date Osteopenia 02/20/2023 Severe obesity (BMI 35.0-35. 9 with comorbidity) ([facility] V24, [facility] V28) 03/06/2019 Lichen sclerosus 08/13/2018 Overview (08/15/2024): Type 2 diabetes mellitus with obesity 09/14/2017 Overview (11/26/2024): 11/26/24 Regulatory IMO Update Polycystic liver disease 06/20/2014 Degenerative disc disease, lumbar 05/18/2014 Compression fracture of T12 vertebra ([facility] V24, [facility] V28) 04/13/2014 Sciatica 12/03/2012 Overview (12/06/2023): Herniated L4-5 disc on left, MRI, 11/14/2012 Nuclear sclerosis 04/17/2011 Overview (12/06/2023): Noted by Dr. Oliveira on 10/21/2010 exam. Hyperlipidemia 01/04/2009 Hypertension 04/25/2005 Hypothyroidism 04/25/2005 Overview (12/06/2023): Hyperthyroidism, ablated with 22.8 mCi of iodine-131 on 12/29/2009 Encounters Date Type Department Care Team Description 11/14/2024 7:15 AM EDT - 11/14/2024 11:59 PM EDT Hospital Encounter Radiology Department - [address] [phone] Encounter for screening mammogram for breast cancer Discharge Disposition: Home or Self Care 11/11/2024 1:15 PM EDT - 11/11/2024 11:59 PM EDT Hospital Encounter Bone Density - [address] [phone] Osteopenia, unspecified location; Postmenopausal Discharge Disposition: Home or Self Care 10/03/2024 Telephone Adult Medicine West - [address] [phone] Concepcion Watts MA from Last 3 Months Immunizations Immunization Administration Dates Next Due COVID-19 (Moderna/Spikevax) 10yo [...] for 5 years. Type 2 diabetes mellitus with obesity 09/14/2017 Severe obesity (BMI 35.0-35. 9 with comorbidity) ([facility] V24, [facility] V28) 03/06/2019 Polycystic liver disease 06/20/2014 Osteopenia 02/20/2023 Hypothyroidism 04/25/2005 Hyperthyroidism, ablated with 22.8 mCi of iodine-131 on 12/29/2009 Hypertension 04/25/2005 Hyperlipidemia 01/04/2009 Compression fracture of T12 vertebra ([facility] V24, [facility] V28) 04/13/2014 Degenerative disc disease, lumbar 05/18/2014 [...] Sexual Orientation Not on file Obstetrics History Para Term AB IAB SAB Ectopic Multiple Livin g Live Births 1 1 1 1 Date Outcome GA Total Labor Labor/2nd/3rd Weight Sex Type Anes PTL Jennifer A1 A5 Name Clin Term Last Filed Vital Signs Vital Sign Reading [...] Care Team (Late st Contact Info) Description 12/08/2024 10:00 AM EDT Appointment Radiology Department - [address] [phone] 12/08/2024 10:30 AM EDT Appointment Radiology Department - [address] [phone] 2024 7:45 AM EDT Office Visit Endocrinology - [address] [place] [address] [place] [address] Cami Dennis PA [address] [place], [place] 02/16/2025 8:15 AM EST Office Visit Adult Medicine [address] [phone] Sadaf Buckley MD [address] [place] [address] Health Maintenance Due Date Last Done Comments RSV Immunization Adult Patients (1 - Risk 60-74 years 1-dose series) 2013 Social Influencers of Health Screening 02/04/2022 Falls Risk Assessment 02/21/2024 02/20/2023 Depression Screening 02/27/2024 08/10/2023 Medicare Annual Wellness Visit 08/09/2024 08/10/2023 Colorectal Cancer Screening: Colonoscopy 08/23/2024 08/23/2017 Diabetes: Annual Urine Albumin-Creatinine Ratio (uACR) 10/10/2024 10/11/2023 Diabetes: Annual Retina Eye Exam 10/10/2024 10/11/2023 Diabetes: Annual Foot Exam 10/16/2024 10/17/2023 COVID-19 Vaccine ( season) 2024 12/16/2022, 2021, 2021, Additional history exists Influenza Vaccine (#1) 2024 , 12/06/2021, 01/12/2021, Additional history exists Diabetes: Blood Sugar Control Test (HGBA1C) 11/16/2024 05/16/2024, 01/17/2024, 10/11/2023, Additional history exists Diabetes: Annual GFR (Glomerular Filtration Rate) 05/16/2025 05/16/2024, 10/11/2023, 10/11/2023 Hypertension/CHF/CAD Annual BMP Blood Test 05/16/2025 05/16/2024, 10/11/2023, 10/11/2023 Breast Cancer Screening 11/14/2026 11/15/19 25, 11/08/2023, 11/08/2023, Additional history exists Cholesterol Screening (Lipid Panel) 05/16/2029 05/16/2024, 02/21/2023 DTaP,Tdap,and Td Vaccines (5 - Td or Tdap) 04/19/2032 04/19/2022, 04/19/2022, 04/01/2012, Additional history exists Osteoporosis Screening (Bone Density Screening) 11/11/2034 11/11/2024, 12/30/2020 Hepatitis C Screening Completed 08/01/2012 Zoster Vaccines [...] Procedure Name Priority Date/Time Associated Diagnosis Comments MG MAMMO DIGITAL SCREENING W ROYER BILAT Routine 11/14/2024 7:33 AM EDT Encounter for screening mammogram for breast cancer BD BONE DENSITY DXA AXIAL SKELETON Routine 11/11/2024 1:59 PM EDT Osteopenia, unspecified location Postmenopausal BASIC METABOLIC PANEL Routine 05/16/2024 8:33 AM EDT Primary hypertension HEMOGLOBIN A1C Routine 05/16/2024 8:33 AM EDT Type 2 diabetes mellitus with obesity ([facility] V24, [facility] V28) LIPID PANEL WITH REFLEX TO DIRECT LDL Routine 05/16/2024 8:33 AM EDT Hyperlipidemia, unspecified hyperlipidemia type DIABETES FOOT EXAM Routine 10/17/2023 URINE ALBUMIN CREATININE RATIO Routine 10/11/2023 DEPRESSION SCREENING Routine 08/10/2023 FALLS RISK ASSESSMENT Routine 02/20/2023 COLONOSCOPY Routine 08/23/2017 HEPATITIS C SCREENING Routine 08/01/2012 from Last 3 Months or Most Recently Relevant to Health Maintenance Results * (ABNORMAL) MG Mammo Digital Screening w Royer bilat (11/14/2024 7:33 AM EDT) Anatomical Region Laterality Modality Breast Bilateral Mammography 11/17/2024 3:50 PM EDT Impressions 11/17/2024 4:22 PM EDT Bilateral focal asymmetries as detailed. Additional imaging is recommended. BI-RADS CATEGORY: 0 - INCOMPLETE - NEED ADDITIONAL IMAGING EVALUATION RECOMMENDATION: Additional bilateral breast imaging recommended. Mammo Location: [facility], [address] [place] [address], [phone], . -------- FINAL REPORT -------- Dictated By: Christine Valencia Dictated Date: 11/17/2024 15:50 ET Assigned Physician: Christine Valencia Reviewed and Electronically Signed By: Christine Valencia Signed Date: 11/17/2024 16:22 ET Workstation ID: [id number] Transcribed By: Self Edit Transcribed Date: 11/17/2024 15:54 ET Narrative 11/17/2024 4:22 PM EDT Bilateral screening mammogram. CLINICAL: 68 years old, Female, routine annual exam. COMPARISON: Prior mammograms, latest from 11/08/2023. TECHNIQUE: Bilateral MLO and CC views were obtained digitally with 2-D C views and 3-D mammogram (digital breast tomosynthesis). Computer-aided detection was utilized in evaluation of this exam (CAD). FINDINGS: There is some asymmetric density in the anterior lateral right breast. There is asymmetric opacity in the left lateral breast, middle 3rd depth. Additional assessment with spot compression views in CC projection, full field straight lateral views and ultrasound recommended bilaterally. We well contact the patient for the arrangements. There is no evidence of other suspicious mass or architectural distortion. No worrisome calcifications are evident BREAST DENSITY: B - There are scattered areas of fibroglandular density. Procedure Note Christine Valencia MD - 11/17/2024 Bilateral screening mammogram. CLINICAL: 68 years old, Female, routine annual exam. COMPARISON: Prior mammograms, latest from 11/08/2023. TECHNIQUE: Bilateral MLO and CC views were obtained digitally with 2-D Cviews and 3-D mammogram (digital breast tomosynthesis). Computer-aideddetection was utilized in evaluation of this exam (CAD). FINDINGS: There is some asymmetric density in the anterior lateral right breast.There is asymmetric opacity in the left lateral breast, middle 3rd depth.Additional assessment with spot compression views in CC projection, fullfield straight lateral views and ultrasound recommended bilaterally. [place]well contact the patient for the arrangements. There is no evidence of other suspicious mass or architectural distortion.No worrisome calcifications are evident BREAST DENSITY: B - There are scattered areas of fibroglandular density. IMPRESSION: Bilateral focal asymmetries as detailed. Additional imaging isrecommended. BI-RADS CATEGORY: 0 - INCOMPLETE - NEED ADDITIONAL IMAGING EVALUATION RECOMMENDATION: Additional bilateral breast imaging recommended. Mammo Location: [facility], [address] [place] [address], [phone], . -------- FINAL REPORT -------- Dictated By: Christine Valencia Dictated Date: 11/17/2024 15:50 ET Assigned Physician: Christine Valencia Reviewed and Electronically Signed By: Christine Valencia Signed Date: 11/17/2024 16:22 ET Workstation ID: [id number] Transcribed By: Self Edit Transcribed Date: 11/17/2024 15:54 ET us Self Referral [facility] IMG BI PROCEDURES Final Resu lt * BD Bone Density DXA Axial Skeleton (11/11/2024 1:59 PM EDT) Anatomical Region Laterality Modality Wrist, Hip, L-spine Bone Densito metry 11/11/2024 4:10 PM EDT Impressions 11/11/2024 4:13 PM EDT Osteopenia by WHO criteria. The [facility] Department of Internal Medicine recommends using [...] alternative screening schedule based on jin Callaway., [facility] March 16, 2011 for patients with osteopenia (based on hip BMD T-score) is as follows: * advanced osteopenia (T scores -2.00 to -2.49), BMD testing every year * moderate osteopenia (T scores -1.50 to -1.99), BMD testing every 5 years mild osteopenia or normal BMD (T scores -1.50 and higher), BMD testing every 15 years -------- FINAL REPORT -------- Dictated By: Melanie Alvarez Dictated Date: 11/11/2024 16:10 ET Assigned Physician: Melanie Alvarez Reviewed and Electronically Signed By: Melanie Alvarez Signed Date: 11/11/2024 16:13 ET Workstation ID: [id number] Transcribed By: Self Edit Transcribed Date: 11/11/2024 16:10 ET Narrative 11/11/2024 4:13 PM EDT BONE DENSITY SCAN (DEXA): FINDINGS: Lumbar Spine T-score is -1.1. (SD relative to 20-29 y/o adult) Z-score is 1.1. (SD relative to age matched peers) This is considered osteopenia by WHO criteria. Left Hip T-score is -1.3. Z-score is 0.5. This is considered osteopenia by WHO criteria. Comparison exam(s): 12/30/2020. No statistically significant change in bone mineral density. Lateral survey view of the thoracolumbar spine shows a chronic moderate to severe compression deformity involving T12. Procedure Note Melanie Alvarez MD - 11/11/2024 BONE DENSITY SCAN (DEXA): FINDINGS: Lumbar Spine T-score is -1.1. (SD relative to 20-29 y/o adult) Z-score is 1.1. (SD relative to age matched peers) This is considered osteopenia by WHO criteria. Left Hip T-score is -1.3. Z-score is 0.5. This is considered osteopenia by WHO criteria. Comparison exam(s): 12/30/2020. No statistically significant change inbone mineral density. Lateral survey view of the thoracolumbar spine shows a chronic moderate tosevere compression deformity involving T12. IMPRESSION: Osteopenia by WHO criteria. The [facility] Department of Internal Medicine recommendsusing National Osteoporosis Foundation (NOF) guidelines in treatmentdecisions related to osteoporosis. NOF guidelines suggest consideringtreatment for postmenopausal women and men aged 50 or older presentingwith the following: History of hip or vertebral fracture. T-score = -2.5 (DXA) at the femoral neck, total hip, or spine, afterappropriate evaluation to exclude secondary causes. Low bone mass (T-score between -1.0 and -2.5 at the femoral neck or spine)AND a 10-year probability of a hip fracture = 3% OR a 10-year probabilityof a major osteoporosis-related fracture = 20% based on the [place]-adapted WHOalgorithm Please note that all treatment decisions require clinical judgment andconsideration of individual patient factors, including patientpreferences, co-morbidities, previous drug use, risk factors not capturedin the FRAX model (e.g., frailty, falls, vitamin D deficiency, increasedbone turnover, interval significant decline in bone density) and possibleunder- or over-estimation of fracture risk by FRAX. Optional alternative screening schedule based on jin Callaway., [facility] for patients with osteopenia (based on hip BMD T-score)is as follows: * advanced osteopenia (T scores -2.00 to -2.49), BMD testing every year * moderate osteopenia (T scores -1.50 to -1.99), BMD testing every 5years mild osteopenia or normal BMD (T scores -1.50 and higher), BMD testingevery 15 years -------- FINAL REPORT -------- Dictated By: Melanie Alvarez Dictated Date: 11/11/2024 16:10 ET Assigned Physician: Melanie Alvarez Reviewed and Electronically Signed By: Melanie Alvarez Signed Date: 11/11/2024 16:13 ET Workstation ID: [id number] Transcribed By: Self Edit Transcribed Date: 11/11/2024 16:10 ET Cristina NATHAN IM DXA PROCEDURES Final Resu lt * (ABNORMAL) Lipid panel with reflex to direct LDL (05/16/2024 8:33 AM EDT) Cholesterol 226(H) 0 - 200 mg/dL LAB CHEMISTRY METHOD 05/16/2024 10:45 AM EDT [facility] Triglycerides 121 0 - 150 mg/dL LAB CHEMISTRY METHOD 05/16/2024 10:45 AM EDT [facility] HDL 67 >=40 mg/dL LAB CHEMISTRY METHOD 05/16/2024 10:45 AM EDT [facility] LDL Calculated 135(H) 0 - 100 mg/dL LAB CHEMISTRY METHOD 05/16/2024 10:45 AM EDT [facility] VLDL Cholesterol Brian 24.2 mg/dL LAB CHEMISTRY METHOD 05/16/2024 10:45 AM EDT [facility] Non HDL Chol. (LDL+VLDL) 159(H) <145 mg/dL LAB CHEMISTRY METHOD 05/16/2024 10:45 AM EDT [facility] Chol/HDL Ratio 3.4 0.0 - 4.4 LAB CHEMISTRY METHOD 05/16/2024 10:45 AM EDT [facility] Blood Venous blood specimen / Unknown Venipuncture / Unknown 05/16/2024 8:33 AM EDT 05/16/2024 8:33 AM EDT us Cami NATHAN LAB BLOOD ORDERABLES Final Resul t Performing Organization Address City/[facility]/ZIP Co de Phone Number [facility] [address] [place] [address], * (ABNORMAL) Hemoglobin A1c (05/16/2024 8:33 AM EDT) Hemoglobin A1C 7.0(H) <6.5 % LAB CHEMISTRY METHOD 05/16/2024 11:17 AM EDT [facility] Mean Bld Glu Estim. 154 mg/dL LAB CHEMISTRY METHOD 05/16/2024 11:17 AM EDT [facility] Blood Venous blood specimen / Unknown Venipuncture / Unknown 05/16/2024 8:33 AM EDT 05/16/2024 8:33 AM EDT us Cami NATHAN LAB BLOOD ORDERABLES Final Resul t [facility] [address] [place] [address], [place] [phone] * (ABNORMAL) Basic metabolic panel (05/16/2024 8:33 AM EDT) Sodium 140 133 - 145 mmol/L LAB CHEMISTRY METHOD 05/16/2024 10:44 AM [facility] Potassium 4.8 3.5 - 5.5 mmol/L LAB CHEMISTRY METHOD 05/16/2024 10:44 AM [facility] Chloride 104 96 - 110 mmol/L LAB CHEMISTRY METHOD 05/16/2024 10:44 AM [facility] CO2 30 21 - 32 mmol/L LAB CHEMISTRY METHOD 05/16/2024 10:44 AM [facility] Anion Gap 6 3 - 11 LAB CHEMISTRY METHOD 05/16/2024 10:44 AM [facility] Glucose 118(H) 70 - 100 mg/dL LAB CHEMISTRY METHOD 05/16/2024 10:44 AM [facility] BUN 12 5 - 25 mg/dL LAB CHEMISTRY METHOD 05/16/2024 10:44 AM [facility] Creatinine 0.60 0.50 - 1.10 mg/dL LAB CHEMISTRY METHOD 05/16/2024 10:44 AM [facility] eGFR 97 >=60 mL/min/1. 73m2 LAB CHEMISTRY METHOD 05/16/2024 10:44 AM [facility] Comment:Calculation based on the Chronic Kidney Disease Epidemiology Collaboration (CKD-EPI) equation refit without adjustment for race. BUN/Creatinine Ratio 20.0 LAB CHEMISTRY METHOD 05/16/2024 10:44 AM [facility] Calcium 9.6 8.5 - 10.5 mg/dL LAB CHEMISTRY METHOD 05/16/2024 10:44 AM [facility] Blood Venous blood specimen / Unknown Venipuncture / Unknown 05/16/2024 8:33 AM EDT 05/16/2024 8:33 AM EDT Cami NATHAN LAB BLOOD ORDERABLES Final Resul t [facility] [address] [place] [address], [place] [phone] * Diabetes Foot Exam (10/17/2023) [facility] Diabetes: Annual Foot Exam Abstracted Historical Provider HEALTH MAINTENANCE Final Result * Urine Albumin Creatinine Ratio (10/11/2023) [facility] Urine Albumin Creatinine Ratio Abstracted Result [facility] Provider HEALTH MAINTENANCE Final Result * Depression Screening (08/10/2023) [facility] Depression Screening Abstracted [facility] Provider HEALTH MAINTENANCE Final Result * Falls Risk Assessment (02/20/2023) [facility] Falls Risk Assessment Abstracted [facility] Provider HEALTH MAINTENANCE Final Result * Colonoscopy (08/23/2017) [facility] Colonoscopy No interpretation , Abstracted Anatomical Region Laterality Modality Other Historical Provider HEALTH MAINTENANCE Final Result * Hepatitis C Screening (08/01/2012) [facility] Hepatitis C Screening Abstracted Result [facility] Provider HEALTH MAINTENANCE Final Result from Last 3 Months or Most Recently Relevant to Health Maintenance Insurance [employer] [place] [employer] Care Teams Web Site Admin Relationship Specialty Start Date End Date Sadaf Buckley MD [address] [place] [address] PCP - General Internal Medicine 09/10/19
--- OUTSIDE RECORDS SUMMARY | 2024-11-27 07:50 | XMS_ITS | Patient Health Record ---
Author Organization [facility] Address [address] [place] [address] Care Team Providers Care Fumigator And Sterilizer Name Role Phone Sadaf Buckley Primary Care Provider DUANE Lee Unavailable [phone] Allergies Allergen (clinical drug ingredient) Drug/Non Drug Allergy documented on EMR Reaction Allergy Type Onset Date Status cephalexin Cephalexin Unknown Drug Allergy Activ e Substance with 4-wxiwisr-9-methylgluta ryl-coenzyme A reductase inhibitor mechanism of action (substance) Statins Unknown Drug Allergy Active Reason For Referral No Information Medications Medication SIG (Take, Route, Frequency, Duration) Notes Start Date End Date Status Vitamin D3 50 MCG (1999) 1 capsule Orally Once a day Active Metoprolol Succinate ER 25 MG 1 tablet Orally Once a day Active Ezetimibe 10 MG 1 tablet Orally Once a day Active Trulicity 3 MG/0.5ML as directed Subcutaneous Active Calcium 600 MG 1 tablet with meals Orally Twice a day Active Ibuprofen 400 MG 1 tablet with food o r milk as needed Orally every 8 hr prn PRN Active Levothyroxine Sodium 25 MCG 1 tablet in the morning on an empty stomach Orally Once a day Active Lisinopril 20 MG 1 tablet Orally Once a day Active metFORMIN HCl 500 MG 1 tablet with a evan l Orally twice a day Active Januvia 100 MG 1 tablet Orally Once a day Not-Taking Aspirin 81 MG 1 tablet Orally Once a day Active Acetaminophen 500 MG 1 capsule as needed Orally every 6 hrs Active Problems Problem Type SNOMED Code ICD Code Onset Dates Problem Status W/U Status Risk Notes Problem Type 2 diabetes mellitus with other specified complication (E11.69) Active confirmed Problem Obesity (251971202) Obesity, unspecified (E66.9) Active confirmed Problem Acquired hammer toe of right foot (892962255861 9105) Other hammer toe(s) (acquired), right foot (M20.41) Active confirmed Problem Acquired hammer toe of left foot (333657911583 9103) Other hammer toe(s) (acquired), left foot (M20.42) Active confirmed Vital Signs Heart Rate 79 /min 08/11/2024 Temperature 97.7 degrees Fahrenheit 08/11/2024 Respiratory Rate 16 /min 08/11/2024 Height 5ft 4.5in in 08/11/2024 Weight 203.6 lbs 08/11/2024 BMI 34.4 kg/m2 08/11/2024 Encounters Encounter Location Date Provider Diagnosis [facility] [address] [place] [address] 08/11/2024 DUANE NGUYEN Type 2 diabetes mellitus with other specified complication E11.69 ; Obesity, unspecified E66.9 ; Flat foot [pes planus] (acquired), right foot M21.41 ; Flat foot [pes planus] (acquired), left foot M21.42 ; Fissured skin R23.4 ; Other hammer toe(s) (acquired), right foot M20.41 and Other hammer toe(s) (acquired), left foot M20.42 Assessments Encounter Date Diagnosis (ICD Code) Assessment Notes Treatment Notes Treatment Clinical Notes Section Notes 08/11/2024 Type 2 diabetes mellitus with other specified [...] blood sugar control and the importance of ksByBL7k of less than 7.0%. I reviewed the signs and symptoms of neuropathy with the patient. Her last A1c is improved and we discussed the benefits of better blood sugar control. 08/11/2024 Obesity, unspecified (ICD-10 - E66.9) 08/11/2024 Flat foot [pes planus] (acquired), right foot [...] Discussed proper shoe gear with the patient. 08/11/2024 Flat foot [pes planus] (acquired), left foot (ICD-10 - M21.42) 08/11/2024 Fissured skin (ICD-10 - R23.4) I recommended urea 40% cream for the heels to avoid cracks and fissures. She is in agreement with this plan. 08/11/2024 Other hammer toe(s) (acquired), right foot (ICD-10 - M20.41) We discussed the toe stiffness is part of the hammer toes and arthritis in the toes. 08/11/2024 Other hammer toe(s) (acquired), left foot (ICD-10 - M20.42) Plan Of Treatment Pending Test Test Name Order Date X ray : Foot, left 3v 05/17/2020 Next Appt Details Provider Name:DUANE NGUYEN, 08/12/2025 08:00:00 AM, [address], [place], [address], Insurance Providers Payer Name Payer Address Payer Phone Subscriber Number Group Number Insured Name Patient Relationship to Insured Coverage Start Date Coverage End Date [facility] [address] [facility] [address] [place] [phone] [id number] Woo Nhung Self - patient is the insured Medical [...] Hypothyroidism, unspecified E03.9 COVID vaccinated X 5 heart blockage + E.coli 08/07/2024 Surgical History Surgery Date(Month/Year) bx breast; perc needle core w/imag guid neg hx colonoscopy 13 mm sigmoid colon polyp :tubular adenoma 01/29/2009 hx knee surgery scope left knee 2011 Historical knee surgery scope 12/2015 Hospitalization History Reason Date(Month/Year) + E.coli 08/07/2024 kidney/bladder infection as a child vaginal delivery (boy) 1976
== END ==
LOC: HO.CARD 07:48
PROVIDERS: PCP Internal Medicine; Visit Provider Nurse Practitioner Family
DX: I42.9 Cardiomyopathy, unspecified (principal); I44.7 Left bundle-branch block, unspecified
CPT/HCPCS: 93308; Q9957

== ENCOUNTER → 2024-11-27 07:50 | Outpatient (BNV) | payer MEDICARE, SELFPAY | PROVIDERS: PCP Internal Medicine; Visit Provider Internal Medicine | DX: I42.9 Cardiomyopathy, unspecified (principal); I50.9 Heart failure, unspecified | CPT/HCPCS: 93308 ==

== ENCOUNTER 2024-12-10 09:41 | Outpatient (AMB) | payer MEDICARE, SELFPAY ==
--- OUTSIDE RECORDS SUMMARY | 2024-07-23 06:00 | XMS_ITS ---
Author Organization [facility] Address [address] [address] Care Team Providers Care Used Car Make Ready Mechanic Name Role Phone Sadaf Buckley Primary Care Provider Unavailabl DUANE Reyes Unavailable [phone] REASON FOR VISIT annual diabetic follow up Encounters Encounter Location Date Provider Diagnosis [facility] [address] [address] 07/23/2024 DUANE LAI Plan Of Treatment Next Appt Details Provider Name:DUANE LAI, 08/12/2025 08:00:00 AM, [address] [address], [place], [address], Progress Notes * Nhung HERNANDEZDOB: (68 yo F)Acc No.[id number]:07/23/2024 Progress Note Patient: Nhung WOODY Provider: Zahida Lai DPM :1955 A ge:68 Y S ex:Female Date:07/23/2024 Phone: Address:[id number] Pcp:Sadaf Buckley Subjective: * Chief Complaints: * 1 . Annual diabetic follow up. * Medical History: Objective: * Vitals: Assessment: Plan: * Treatment: * Billing Information: * Visit Code: * Procedure Codes: * Electronic signature of FARZANA LAI D.P.M on 12/10/2024 at 11:06 AM EDT Sign off status: Pending * Provider: Zahida Lai DPM Date: 0 07/23/2024 Generated for Fani delaney/Megan/eTransmitting on: 1 11:06 AM EDT
--- OUTSIDE RECORDS SUMMARY | 2024-12-08 09:49 | XMS_ITS | Encounter Summary ---
Author Organization [facility] Address [address] [place] [address] Care Team Providers Care Sanitary Landfill Supervisor Name Role Phone Sadaf Buckley MD Primary Care Provider [phone] Reason for Referral * Imaging (Routine) - Authorized Specialty Diagnoses / Procedures Referred By Rivera mckeon Referred To Contact Radiology Diagnoses Abnormal mammogram Procedures MG Mammo Digital Diagnostic w Sadaf Reyes MD [address] [place] [address] Phone: tel: fax: [address] Phone: tel: Referral ID Status Reason Start Date Expiration Date V isits Requested Visits Authorized [id number] Authorized 11/18/2024 11/18/2025 1 1 Reason for Visit * Imaging (Routine) - Authorized Specialty Diagnoses / Procedures Referred By Rivera mckeon Referred To Contact Radiology Diagnoses Abnormal mammogram Procedures MG Mammo Digital Diagnostic w Sadaf Reyes MD [address] [place] [address] Phone: tel: fax: [address] Phone: tel: Referral ID Status Reason Start Date Expiration Date V isits Requested Visits Authorized [id number] Authorized 11/18/2024 11/18/2025 1 1 Encounter Details Date Type Department Care Team (Latest Contact Info) Description 12/08/2024 9:49 AM EDT - 12/08/2024 11:59 PM EDT Hospital Encounter Radiology Department - [address] [address] Abnormal mammogram Discharge Disposition: Home or Self Care Social History Tobacco Use Types Packs/Day Years Used Date Smoking Tobacco: Former Cigarettes 1.5 20.2 1 - 02/26/1995 Smokeless Tobacco: Never Alcohol Use Standard Drinks/Week Comments No 0 (1 standard drink = 0.6 oz pur e alcohol) Comments Unknown Sex and Gender Information Value Date Recorded Sex Assigned at Not on file Legal Sex Female 11:21 AM EST Gender Identity Not on file Sexual Orientation Not on file documented as of this encounter Medications at Time of Discharge aspirin 81 mg EC tablet Take 1 tablet (81 mg total) by mouth 1 (one) time each day. blood sugar diagnostic (FreeStyle Lite Strips) test strip Test blood sugar once daily E11.9 12/13/2022 calcium carbonate/vitamin D3 (CALCIUM + D ORAL) Take 2,000 mg by mouth daily. dulaglutide (TRULICITY) 3 mg/0.5 mL pen injector injectionIndicati ons:Type 2 diabetes mellitus with obesity Inject 0.5 mL (3 mg total) under the skin every 7 (seven) days. 3 mL 5 10/06/2024 ezetimibe (ZETIA) 10 mg tablet Take 1 tablet (10 mg total) by mouth 1 (one) time each day. FREESTYLE LANCETS MISC Test blood sugar once daily E11.9 12/13/2022 ibuprofen (ADVIL,MOTRIN) 400 mg tablet Take 1 Tablet by mouth every 8 hours as needed. levothyroxine (SYNTHROID, LEVOTHROID) 25 mcg tablet Take 1 tablet (25 mcg total) by mouth 1 (one) time each day. 90 tablet 1 08/18/2024 lisinopriL (PRINIVIL,ZESTRIL ) 20 mg tablet Take 1 tablet (20 mg total) by mouth 1 (one) time each day. 90 tablet 1 01/17/2024 metFORMIN (GLUCOPHAGE) 500 mg tablet Take 1 tablet (500 mg total) by mouth 1 (one) time each day with breakfast. 02/11/2024 metoprolol succinate (TOPROL-XL) 25 mg 24 hr tablet Take 1 tablet (25 mg total) by mouth 1 (one) time each day. Do not crush or chew. nystatin-triamcin olone (MYCOLOG II) ointment Apply a thin layer to affected area twice weekly 09/18/2023 documented as of this encounter Discharge Disposition Disposition Code Departure Means Destination Home or Self Care documented in this encounter Plan of Treatment Upcoming Encounters Date Type Department Care Team (Late st Contact Info) Description 12/15/2024 12:45 PM EDT Appointment Radiology Department - [address] [phone] 12/15/2024 1:30 PM EDT Appointment Radiology Department - [address] [phone] 2024 7:45 AM EDT Office Visit Endocrinology - [address] [phone] Cami Dennis PA [address] [place] [address] 02/16/2025 8:15 AM EST Office Visit Adult Medicine South - [address] [phone] Sadaf Buckley MD [address] [place] [address] 03/09/2025 9:00 AM EST Office Visit Obstetrics and Gynecology - [address] [phone] Piat Del Angel, [address] documented as of this encounter Procedures Procedure Name Priority Date/Time Associated Diagnosis Comments MG MAMMO DIGITAL DIAGNOSTIC W ROYER BILAT Routine 12/08/2024 10:07 AM EDT Abnormal mammogram documented in this encounter Results * (ABNORMAL) MG Mammo Digital Diagnostic w Royer bilat (12/08/2024 10:07 AM EDT) Anatomical Region Laterality Modality Breast Bilateral Mammography 12/08/2024 10:4 8 AM EDT Impressions 12/08/2024 10:58 AM EDT Right: Recommend ultrasound-guided core biopsy of a 1.0 cm lesion at the 9 o'clock position. Biopsy appointment has been scheduled. Left: No suspicious finding on callback imaging. BREAST DENSITY: B - There are scattered areas of fibroglandular density. BI-RADS CATEGORY: 4 - SUSPICIOUS RECOMMENDATION: Core biopsy of right breast recommended. MAMMO LOCATION: [facility], [address] [place] [address], [address], . -------- FINAL REPORT -------- Dictated By: Melanie Alvarez Dictated Date: 12/08/2024 10:48 ET Assigned Physician: Melanie Alvarez Reviewed and Electronically Signed By: Melanie Alvarez Signed Date: 12/08/2024 10:58 ET Workstation ID: [id number] Transcribed By: Self Edit Transcribed Date: 12/08/2024 10:48 ET Narrative 12/08/2024 10:58 AM EDT EXAM: MG MAMMO DIGITAL DIAGNOSTIC W ROYER BILAT, US BREAST LIMITED BILAT HISTORY: Call back from a screening mammogram. FINDINGS: Right: 90 ML and spot compression CC views performed with tomosynthesis. Persistent asymmetry in the anterior outer breast with a potential correlate in the slightly upper breast on the ML view. Targeted sonography was subsequently performed. 1.0 x 0.7 x 0.7 cm irregularly shaped and irregularly marginated hypoechoic lesion at the 9 o'clock position, 2 cm from the nipple. Small amount of internal blood flow on color Doppler. This likely corresponds with the mammographic abnormality. Appearance is suspicious and ultrasound-guided core biopsy is recommended. Left: 90 ML and spot compression CC views performed with tomosynthesis. The asymmetry in the outer breast at the middle depth does not persist. No mass or architectural distortion apparent. Targeted sonography was performed in the upper outer breast without a solid or cystic lesion identified. Procedure Note Melanie Alvarez MD - 12/08/2024 EXAM: MG MAMMO DIGITAL DIAGNOSTIC W ROYER BILAT, US BREAST LIMITED BILAT HISTORY: Call back from a screening mammogram. FINDINGS: Right: 90 ML and spot compression CC views performed with tomosynthesis.Persistent asymmetry in the anterior outer breast with a potentialcorrelate in the slightly upper breast on the ML view. Targeted sonography was subsequently performed. 1.0 x 0.7 x 0.7 cmirregularly shaped and irregularly marginated hypoechoic lesion at the 9o'clock position, 2 cm from the nipple. Small amount of internal bloodflow on color Doppler. This likely corresponds with the mammographicabnormality. Appearance is suspicious and ultrasound-guided core biopsyis recommended. Left: 90 ML and spot compression CC views performed with tomosynthesis. Theasymmetry in the outer breast at the middle depth does not persist. Nomass or architectural distortion apparent. Targeted sonography wasperformed in the upper outer breast without a solid or cystic lesionidentified. IMPRESSION: Right: Recommend ultrasound-guided core biopsy of a 1.0 cm lesion at the 9o'clock position. Biopsy appointment has been scheduled. Left: No suspicious finding on callback imaging. BREAST DENSITY: B - There are scattered areas of fibroglandular density. BI-RADS CATEGORY: 4 - SUSPICIOUS RECOMMENDATION: Core biopsy of right breast recommended. MAMMO LOCATION: [facility], [address] [place] [address], [address], . -------- FINAL REPORT -------- Dictated By: Melanie Alvarez Dictated Date: 12/08/2024 10:48 ET Assigned Physician: Melanie Alvarez Reviewed and Electronically Signed By: Melanie Alvarez Signed Date: 12/08/2024 10:58 ET Workstation ID: [id number] Transcribed By: Self Edit Transcribed Date: 12/08/2024 10:48 ET us Sadaf Buckley MD IMG BI PROCEDURES Final Result documented in this encounter Visit Diagnoses Diagnosis Abnormal mammogram Abnormal mammogram, unspecified documented in this encounter Care Teams Sanitary Landfill Supervisor Relationship Specialty Start Date End Date Sadaf Buckley MD [address] [place] [address] PCP - General Internal Medicine 09/10/19 documented as of this encounter
--- OUTSIDE RECORDS SUMMARY | 2024-12-08 09:49 | XMS_ITS | Encounter Summary ---
Author Organization [facility] Address [address] [place] [address] Care Team Providers Care Packing Machine Inspector Name Role Phone Sadaf Buckley MD Primary Care Provider [phone] Reason for Referral * Imaging (Routine) - Authorized Specialty Diagnoses / Procedures Referred By Rivera t Referred To Contact Radiology Diagnoses Abnormal mammogram Procedures US Breast Limited Sadaf Butler MD [address] [place] [address] Phone: tel: fax: [address] Phone: tel: Referral ID Status Reason Start Date Expiration Date V isits Requested Visits Authorized [id number] Authorized 11/18/2024 11/18/2025 1 1 Reason for Visit * Imaging (Routine) - Authorized Specialty Diagnoses / Procedures Referred By Contac t Referred To Contact Radiology Diagnoses Abnormal mammogram Procedures US Breast Limited Sadaf Butler MD [address] [place] [address] Phone: tel: fax: [address] Phone: tel: Referral ID Status Reason Start Date Expiration Date V isits Requested Visits Authorized [id number] Authorized 11/18/2024 11/18/2025 1 1 Encounter Details Date Type Department Care Team (Latest Contact Info) Description 12/08/2024 9:49 AM EDT - 12/08/2024 11:59 PM EDT Hospital Encounter Radiology Department - [address] [phone] Abnormal mammogram Discharge Disposition: Home or Self [...] 12:45 PM EDT Appointment Radiology Department - [address] [phone] 12/15/2024 1:30 PM EDT Appointment Radiology Department - [address] [phone] 2024 7:45 AM EDT Office Visit Endocrinology - [address] [phone] Cami Dennis PA [address] [place] [address] 02/16/2025 8:15 AM EST Office Visit [facility] - [address] [phone] Sadaf Buckley MD [address] [place] [address] 03/09/2025 9:00 AM EST Office Visit Obstetrics and Gynecology - [address] [phone] Pita Del Angel, [address] documented as of this encounter Procedures Procedure Name Priority Date/Time Associated Diagnosis Comments US BREAST LIMITED BILAT Routine 12/08/2024 10:23 AM EDT Abnormal mammogram documented in this encounter Results * (ABNORMAL) US Breast Limited bilat (12/08/2024 10:23 AM EDT) Anatomical Region Laterality Modality Breast Bilateral Ultrasound 12/08/2024 10:4 8 AM EDT Impressions 12/08/2024 10:58 AM EDT Right: Recommend ultrasound-guided core biopsy of a 1.0 cm lesion at the 9 o'clock position. Biopsy appointment has been scheduled. Left: No suspicious finding on callback imaging. BREAST DENSITY: B - There are scattered areas of fibroglandular density. BI-RADS CATEGORY: 4 - SUSPICIOUS RECOMMENDATION: Core biopsy of right breast recommended. MAMMO LOCATION: [facility], [address] [place] [address], [address], . -------- FINAL REPORT -------- Dictated By: Melanie Alvarez Dictated Date: 12/08/2024 10:48 ET Assigned Physician: Melanie Alvarez Reviewed and Electronically Signed By: Melanie Alvarez Signed Date: 12/08/2024 10:58 ET Workstation ID: [id number] Transcribed By: Self Edit Transcribed Date: 12/08/2024 10:48 ET Narrative 12/08/2024 10:58 AM EDT EXAM: MG MAMMO DIGITAL DIAGNOSTIC W JUAN CARLOS BILAT, US BREAST LIMITED BILAT HISTORY: Call [...] 12/08/2024 EXAM: MG MAMMO DIGITAL DIAGNOSTIC W JUAN CARLOS BILAT, US BREAST LIMITED BILAT HISTORY: Call [...] biopsy of right breast recommended. MAMMO LOCATION: [facility], [address] [place] [address], [address], . -------- FINAL REPORT -------- Dictated By: Melanie Alvarez Dictated Date: 12/08/2024 10:48 ET Assigned Physician: Melanie Alvarez Reviewed and Electronically Signed By: Melanie Alvarez Signed Date: 12/08/2024 10:58 ET Workstation ID: [id number] Transcribed By: Self Edit Transcribed Date: 12/08/2024 10:48 ET us Sadaf Buckley MD IMG US PROCEDURES Final Result documented in this encounter Visit Diagnoses Diagnosis Abnormal mammogram Abnormal mammogram, unspecified documented in this encounter Care Teams Packing Machine Inspector Relationship Specialty Start Date End Date Sadaf Buckley MD [address] [place] [address] PCP - General Internal Medicine 09/10/19 documented as of this encounter
--- NOTE | 2024-12-10 09:44 | MHC.OFFVIS ---
Vital Signs 12/10/24 09:48 Height 5 ft 4 in Weight 207 lb 3.752 oz BMI 35.6 BP 133/64 Blood Pressure Location Lt brachial Position Sitting Pulse 76 Intake Visit Reasons: Colitis Intake Note: Nhung presents in the office as a new patient for Colitis. CC: States that she is here today because of questioning colitis - states she has been goodwith her symptoms since July. Delivery Department Supervisor Required: No Allergies Ytqnrla-LCR-GkS Reductase Inhibitor Adverse Reaction (Severe, Verified 12/10/24 09:48) Gastrointestinal Upset cephalexin (CEPHALEXIN) Adverse Reaction (Unknown, Verified 12/10/24 09:48) NAUSEA & VOMITING HPI Comments Details: The patient is a 68-year-old female presenting with concerns for colitis . Pt was seen in ER In July when she developed severe abd pain, LLQ cramping N,V and diarrhea after she had a hamburger from a restaurant. CT abd/pel done in ER showed transverse colon colitis and enteritis. She was prescribed Azithromycin and symptoms resolved within a week. Otherwise no current GI sx. Her last colonoscopy was >5 year ago, polyps were noted. Family history includes a brother with colon cancer in his 60s. Pertinent PMH includes cardiomyopathy ?ischemic with reduced ejection fraction 30%. She is on neurohormonal modulators with plan to follow up to review indication for prophylactic ICD . --- Pt was informed and consented to the use of ambient scribe for this encounter. --- [facility] Medical History (Updated 12/10/24 @ 10:36 by Kendy Oleary MD) Type 2 diabetes mellitus Left bundle branch block Hypothyroidism Hyperlipidemia HTN (hypertension) Surgical History (Updated 12/10/24 @ 09:48 by ABILIO Seo) Hx of colonoscopy H/O knee surgery Family History Maternal Grandmother Diabetes Father Stroke Cancer Heart problem Mother No problems noted. Social History Household Members: Spouse Housing: House Do you presently have visiting nurse or other home services: No Alcohol intake: never Patient Tobacco Use Status: Never used Tobacco Review of Systems Const All systems reviewed & are unremarkable except as noted in HPI and below Physical Exam Exam Exam: No apparent distress Nonicteric Abdomen soft, nondistended Alert and oriented x3, normal gait Vital Signs: Last Vital Signs Pulse 76 12/10/24 09:48 BP 133/64 12/10/24 09:48 BMI result Body Mass Index 35.6 Results Reviewed Results Reviewed: 08/07/24: CT abd.pel with contrast: MESENTERY/PERITONEUM: No free fluid. No masses. There is no free intraperitoneal gas. STOMACH: The stomach is collapsed, limiting evaluation. SMALL BOWEL: There is prominent wall thickening of the jejunal small bowel loops in the left upper quadrant, consistent with enteritis. COLON: There is moderate wall thickening of the transverse colon consistent with colitis. The remainder of the colon is unremarkable. APPENDIX: Normal. Assessment & Plan Assessment & Plan (1) Colitis: Code(s): K52.9 - Noninfective gastroenteritis and colitis, unspecified Category: Medical (2) Cardiomyopathy: Code(s): I42.9 - Cardiomyopathy, unspecified Category: Medical (3) Left bundle branch block: Code(s): I44.7 - Left bundle-branch block, unspecified Category: Medical (4) HTN (hypertension): Code(s): I10 - Essential (primary) hypertension Category: Medical Qualifiers: Hypertension type: primary hypertension Qualified Code(s): I10 - Essential (primary) hypertension (5) Family hx of colorectal cancer: Code(s): Z80.0 - Family history of malignant neoplasm of digestive organs Category: Medical (6) Personal history of colonic polyps: Code(s): Z86.0100 - Personal history of colon polyps, unspecified Category: Medical Plan Colitis likely infectious given temporality with consumption of outside food and self limited course. However in need of a colo anyway due to hx of poylps and fam hx of CRC. Given ??nonischemic HFrEF this will be booked AFTER she has been seen and cleared by Cardiology. Plan: - [place] to be booked - Will need Cardiology clearance - HOLD trulicity x 1 dose prior to the colo. - OK to cont ASA 81 Follow up after colo Orders: Referrals GI Procedure Notification K52.9 - Noninfective gastroenteritis and colitis, unspecified Medications: New peg 3350-electrolytes 236-22.74-6.74 -5.86 gram (Golytely) as per split prep instructions, until fecal effluent is clear 240 mL PO Q10M 4,000 mL 0RF colonoscopy Patient Instructions: - We will schedule for a colonoscopy for i) evaluation of colitis ii) polyps surveillance - PEG prep has been sent to your pharmacy - you may pick it up whenever its ready - We will schedule this AFTER you have been cleared by manager retail sales - Please remember to SKIP one dose of trulicity before your procedure - OK to cont baby Aspirin for the colonoscopy Coding Level of Care Code New Pt Level 4 (53331) Diagnoses Colitis K52.9 Cardiomyopathy I42.9 Left bundle branch block I44.7 Primary hypertension I10 Hypertension type: primary hypertension Family hx of colorectal cancer Z80.0 Personal history of colonic polyps Z86.0100
[2024-12-10 09:48] VITALS: BP 133/64; PULSE 76; BMI 35.6
--- OUTSIDE RECORDS SUMMARY | 2024-12-10 11:06 | XMS_ITS | Patient Health Record ---
Author Organization [facility] [place] Address [address] [place] [address] Care Team Providers Care Rental Clerk Tool And Equipment Name Role Phone Sadaf Buckley Primary Care Provider Cristina Evangelista Unavailable [phone] Allergies Allergen (clinical drug ingredient) Drug/Non Drug [...] Problem Acquired hammer toe of right foot (8646201427030032 ) Other hammer toe(s) (acquired), right foot (M20.41) Active confirmed Problem Acquired hammer toe of left foot ([id number] ) Other hammer toe(s) (acquired), left foot (M20.42) Active confirmed Problem Polyneuropathy due to type 2 diabetes mellitus (653712722) Type 2 diabetes mellitus with polyneuropathy (E11.42) Active confirmed Plan Of Treatment No Information Insurance Providers Payer Name Payer Address Payer Phone Subscriber Number Group Number Insured Name Patient Relationship to Insured Coverage Start Date Coverage End Date [employer] 65 Medicare Preferred [address] [place] [address] [id number] Nhung Berkowitz Self - patient is the insured Medical (General) History Medical History History ICD Code Arthritis Back,Hip,and Knee pain CAD (Cholesterol) Diabetic High blood pressure thyroid Measles Chicken pox Mumps Surgical History Surgery Date(Month/Year) knee surgery 04/03/11,01/11
--- OUTSIDE RECORDS SUMMARY | 2024-12-10 11:06 | XMS_ITS | Clinical Summary ---
Author Organization [facility] [address] [facility] Address [address] [place] [address] Phone Care Team Providers Care Behaviorist Name Role Phone Sadaf Buckley MD Primary Care Provider [phone] Allergies Active Allergy Reactions Criticality Noted Date Comments Atorvastatin Low 08/10/2023 Reflux, severe Cephalexin Nausea And Vomiting 10/18/2006 Sensitivity with this medication. Wwimspu-Zjd-Qfi Reductase Inhibitors 09/14/2017 Elevated LFTS Medications nystatin-triamc [...] Severe obesity (BMI 35.0-35. 9 with comorbidity) ([facility] V24, [facility] V28) 03/06/2019 Lichen sclerosus 08/13/2018 Overview (08/15/2024): Type 2 diabetes mellitus with obesity 09/14/2017 Overview (11/26/2024): 11/26/24 Regulatory IMO Update Polycystic liver disease 06/20/2014 Degenerative disc disease, lumbar 05/18/2014 Compression fracture of T12 vertebra ([facility] V24, [facility] V28) 04/13/2014 Sciatica 12/03/2012 Overview (12/06/2023): Herniated L4-5 disc on left, MRI, 11/14/2012 Nuclear sclerosis 04/17/2011 Overview (12/06/2023): Noted by Dr. Oliveira on 10/21/2010 exam. Hyperlipidemia 01/04/2009 Hypertension 04/25/2005 Hypothyroidism 04/25/2005 Overview (12/06/2023): Hyperthyroidism, ablated with 22.8 mCi of iodine-131 on 12/29/2009 Encounters Date Type Department Care Team Description 12/08/2024 9:49 AM EDT - 12/08/2024 11:59 PM EDT Hospital Encounter Radiology Department - [address] [phone] Abnormal mammogram Discharge Disposition: Home or Self Care 12/08/2024 9:49 AM EDT - 12/08/2024 11:59 PM EDT Hospital Encounter Radiology Department - [address] [phone] Abnormal mammogram Discharge Disposition: Home or Self Care 12/08/2024 Telephone Adult Medicine [address] [phone] Sadaf Buckley MD 11/14/2024 7:15 AM EDT - 11/14/2024 11:59 PM EDT Hospital Encounter Radiology Department - [address] [phone] Encounter for screening mammogram for breast cancer Discharge Disposition: Home or Self Care 11/11/2024 1:15 PM EDT - 11/11/2024 11:59 PM EDT Hospital Encounter Bone Density - [address] [phone] Osteopenia, unspecified location; Postmenopausal Discharge Disposition: Home or Self Care 10/03/2024 Telephone Adult Medicine [address] [phone] Concepcion Watts MA from Last 3 Months [...] Severe obesity (BMI 35.0-35. 9 with comorbidity) (CMS/HCC V24, CMS/HCC V28) 03/06/2019 Polycystic liver disease 06/20/2014 Osteopenia 02/20/2023 Hypothyroidism 04/25/2005 Hyperthyroidism, ablated with 22.8 mCi of iodine-131 on 12/29/2009 Hypertension 04/25/2005 Hyperlipidemia 01/04/2009 Compression fracture of T12 vertebra ([facility] V24, [facility] V28) 04/13/2014 Degenerative disc disease, lumbar 05/18/2014 [...] 12:45 PM EDT Appointment Radiology Department - [address] [phone] 12/15/2024 1:30 PM EDT Appointment Radiology Department - [address] [phone] 2024 7:45 AM EDT Office Visit Endocrinology - [address] [phone] Cami Dennis PA [address] [place] [address] 02/16/2025 8:15 AM EST Office Visit Adult Medicine South - [address] [phone] Sadaf Buckley MD [address] [place] [address] 03/09/2025 9:00 AM EST Office Visit Obstetrics and Gynecology - [address] [phone] Pita Del Angel, [address] Health Maintenance Due Date Last Done Comments RSV Immunization Adult Patients (1 - Risk 50-74 years 1-dose series) 12/23/2003 Social Influencers of Health Screening 02/04/2022 Falls Risk Assessment 02/21/2024 02/20/2023 Depression Screening 02/27/2024 08/10/2023 Medicare Annual Wellness Visit 08/09/2024 08/10/2023 Colorectal Cancer Screening: Colonoscopy 08/23/2024 08/23/2017 Diabetes: Annual Urine Albumin-Creatinine Ratio (uACR) 10/10/2024 10/11/2023 Diabetes: Annual Retina Eye Exam 10/10/2024 10/11/2023 Diabetes: Annual Foot Exam 10/16/2024 10/17/2023 COVID-19 Vaccine ( season) 2024 12/16/2022, 2021, 2021, Additional history exists Diabetes: Blood Sugar Control Test (HGBA1C) 11/16/2024 05/16/2024, 01/17/2024, 10/11/2023, Additional history exists Diabetes: Annual GFR (Glomerular Filtration Rate) 05/16/2025 05/16/2024, 10/11/2023, 10/11/2023 Hypertension/CHF/CAD Annual BMP Blood Test 05/16/2025 05/16/2024, 10/11/2023, 10/11/2023 Breast Cancer Screening 12/08/2026 12/09/19, 11/14/2024, 11/08/2023, Additional history exists Cholesterol Screening (Lipid Panel) 05/16/2029 05/16/2024, 02/21/2023 DTaP,Tdap,and Td Vaccines (5 - Td or Tdap) 04/19/2032 04/19/2022, 04/19/2022, 04/01/2012, Additional history exists Osteoporosis Screening (Bone Density Screening) 11/11/2034 11/11/2024, 12/30/2020 Hepatitis C Screening Completed 08/01/2012 Zoster Vaccines Completed 09/11/2021, 06/26, 08/12/2015, Additional history exists Pneumococcal Vaccine: 50+ Years Completed 08/18/2022, 06/12/2019, 10/16/2007 Influenza Vaccine Completed 11/18/2024, , 12/06/2021, Additional history exists HIB Vaccines Aged Out [...] Routine 12/08/2024 10:23 AM EDT Abnormal mammogram MG MAMMO DIGITAL DIAGNOSTIC W ROYER BILAT Routine 12/08/2024 10:07 AM EDT Abnormal mammogram MG MAMMO DIGITAL SCREENING W ROYER BILAT Routine 11/14/2024 7:33 AM EDT Encounter for screening mammogram for breast cancer BD BONE DENSITY DXA AXIAL SKELETON Routine 11/11/2024 1:59 PM EDT Osteopenia, unspecified location Postmenopausal BASIC METABOLIC PANEL Routine 05/16/2024 8:33 AM EDT Primary hypertension HEMOGLOBIN A1C Routine 05/16/2024 8:33 AM EDT Type 2 diabetes mellitus with obesity (CMS/HCC V24, CMS/HCC V28) LIPID PANEL WITH REFLEX TO DIRECT LDL Routine 05/16/2024 8:33 AM EDT Hyperlipidemia, unspecified hyperlipidemia type DIABETES FOOT EXAM Routine 10/17/2023 URINE ALBUMIN CREATININE RATIO Routine 10/11/2023 DEPRESSION SCREENING Routine 08/10/2023 FALLS RISK ASSESSMENT Routine 02/20/2023 COLONOSCOPY Routine 08/23/2017 HEPATITIS C SCREENING Routine 08/01/2012 from Last 3 Months or Most Recently Relevant to Health Maintenance Results * (ABNORMAL) US Breast Limited bilat [...] biopsy of right breast recommended. MAMMO LOCATION: [facility], [address] [place] [address], [address], . -------- FINAL REPORT -------- Dictated By: Melanie Alvarez Dictated Date: 12/08/2024 10:48 ET Assigned Physician: Melanie Alvarez Reviewed and Electronically Signed By: Melanie Alvarez Signed Date: 12/08/2024 10:58 ET Workstation ID: [id number] Transcribed By: Self Edit Transcribed Date: 12/08/2024 [...] biopsy of right breast recommended. MAMMO LOCATION: [facility], [address] [place] [address], [address], . -------- FINAL REPORT -------- Dictated By: Melanie Alvarez Dictated Date: 12/08/2024 10:48 ET Assigned Physician: Melanie Alvarez Reviewed and Electronically Signed By: Melanie Alvarez Signed Date: 12/08/2024 10:58 ET Workstation ID: [id number] Transcribed By: Self Edit Transcribed Date: 12/08/2024 10:48 ET us Sadaf Buckley MD IMG US PROCEDURES Final Result * (ABNORMAL) MG Mammo Digital Diagnostic w [...] biopsy of right breast recommended. MAMMO LOCATION: [facility], [address] [place] [address], [address], . -------- FINAL REPORT -------- Dictated By: Melanie Alvarez Dictated Date: 12/08/2024 10:48 ET Assigned Physician: Melanie Alvarez Reviewed and Electronically Signed By: Melanie Alvarez Signed Date: 12/08/2024 10:58 ET Workstation ID: [id number] Transcribed By: Self Edit Transcribed Date: 12/08/2024 [...] biopsy of right breast recommended. MAMMO LOCATION: [facility], [address] [place] [address], [address], . -------- FINAL REPORT -------- Dictated By: Melanie Alvarez Dictated Date: 12/08/2024 10:48 ET Assigned Physician: Melanie Alvarez Reviewed and Electronically Signed By: Melanie Alvarez Signed Date: 12/08/2024 10:58 ET Workstation ID: [id number] Transcribed By: Self Edit Transcribed Date: 12/08/2024 10:48 ET us Sadaf Buckley MD IMG BI PROCEDURES Final Result * (ABNORMAL) MG Mammo Digital Screening w Royer bilat (11/14/2024 7:33 AM EDT) Anatomical Region Laterality Modality Breast Bilateral Mammography 11/17/2024 3:50 PM EDT Impressions 11/17/2024 4:22 PM EDT Bilateral focal asymmetries as detailed. Additional imaging is recommended. BI-RADS CATEGORY: 0 - INCOMPLETE - NEED ADDITIONAL IMAGING EVALUATION RECOMMENDATION: Additional bilateral breast imaging recommended. Mammo Location: [facility], [address] [place] [address], [address], . -------- FINAL REPORT -------- Dictated By: Christine Valencia Dictated Date: 11/17/2024 15:50 ET Assigned Physician: Christine Valencia Reviewed and Electronically Signed By: Christine Valencia Signed Date: 11/17/2024 16:22 ET Workstation ID: [id number] Transcribed By: Self Edit Transcribed Date: 11/17/2024 [...] Additional bilateral breast imaging recommended. Mammo Location: [facility], [address] [place] [address], [address], . -------- FINAL REPORT -------- Dictated By: Christine Valencia Dictated Date: 11/17/2024 15:50 ET Assigned Physician: Christine Valencia Reviewed and Electronically Signed By: Christine Valencia Signed Date: 11/17/2024 16:22 ET Workstation ID: [id number] Transcribed By: Self Edit Transcribed Date: 11/17/2024 15:54 ET us Self Referral [facility] IMG BI PROCEDURES Final Resu lt * BD Bone Density DXA Axial Skeleton (11/11/2024 1:59 PM EDT) Anatomical Region Laterality Modality Wrist, Hip, L-spine Bone Densito metry 11/11/2024 4:10 PM EDT Impressions 11/11/2024 4:13 PM EDT Osteopenia by WHO criteria. [facility] Department of Internal Medicine [...] screening schedule based on jin Callaway., [facility] March 16, 2011 for patients [...] Signed Date: 11/11/2024 16:13 ET Workstation ID: [id number] Transcribed By: Self Edit Transcribed Date: 11/11/2024 [...] T12. IMPRESSION: Osteopenia by WHO criteria. [facility] Department of Internal Medicine [...] Signed Date: 11/11/2024 16:13 ET Workstation ID: [id number] Transcribed By: Self Edit Transcribed Date: 11/11/2024 16:10 ET us Cristina NATHAN IMG DXA PROCEDURES Final Resu lt * (ABNORMAL) Lipid panel with reflex to direct LDL (05/16/2024 8:33 AM EDT) Cholesterol 226(H) 0 - 200 mg/dL LAB CHEMISTRY METHOD 05/16/2024 10:45 AM EDT [facility] Triglycerides 121 0 - 150 mg/dL LAB CHEMISTRY METHOD 05/16/2024 10:45 AM EDT [facility] HDL 67 >=40 mg/dL LAB CHEMISTRY METHOD 05/16/2024 10:45 AM EDT [facility] LDL Calculated 135(H) 0 - 100 mg/dL LAB CHEMISTRY METHOD 05/16/2024 10:45 AM EDT [facility] VLDL Cholesterol Brian 24.2 mg/dL LAB CHEMISTRY METHOD 05/16/2024 10:45 AM EDT [facility] Non HDL Chol. (LDL+VLDL) 159(H) <145 mg/dL LAB CHEMISTRY METHOD 05/16/2024 10:45 AM EDT [facility] Chol/HDL Ratio 3.4 0.0 - 4.4 LAB CHEMISTRY METHOD 05/16/2024 10:45 AM T [facility] Blood Venous blood specimen / Unknown Venipuncture / Unknown 05/16/2024 8:33 AM EDT 05/16/2024 8:33 AM EDT us Cami NATHAN LAB BLOOD ORDERABLES Final Resul t Performing Organization Address City/State/[facility] de Phone Number [facility] [address] [place] [address], [place] [phone] * (ABNORMAL) Hemoglobin A1c (05/16/2024 8:33 AM EDT) Hemoglobin A1C 7.0(H) <6.5 % LAB CHEMISTRY METHOD 05/16/2024 11:17 AM EDT [facility] Mean Bld Glu Estim. 154 mg/dL LAB CHEMISTRY METHOD 05/16/2024 11:17 AM EDT [facility] Blood Venous blood specimen / Unknown Venipuncture / Unknown 05/16/2024 8:33 AM EDT 05/16/2024 8:33 AM EDT Cami NATHAN LAB BLOOD ORDERABLES Final Resul t Performing Organization Address [facility] de Phone Number [facility] [address] [place] [address], [place] [phone] * (ABNORMAL) Basic metabolic panel (05/16/2024 8:33 AM EDT) Pathologist [facility] Sodium 140 133 - 145 mmol/L LAB CHEMISTRY METHOD 05/16/2024 10:44 AM T [facility] Potassium 4.8 3.5 - 5.5 mmol/L LAB CHEMISTRY METHOD 05/16/2024 10:44 AM EDT [facility] Chloride 104 96 - 110 mmol/L LAB CHEMISTRY METHOD 05/16/2024 10:44 AM EDT [facility] CO2 30 21 - 32 mmol/L LAB CHEMISTRY METHOD 05/16/2024 10:44 AM EDT [facility] Anion Gap 6 3 - 11 LAB CHEMISTRY METHOD 05/16/2024 10:44 AM EDT [facility] Glucose 118(H) 70 - 100 mg/dL LAB CHEMISTRY METHOD 05/16/2024 10:44 AM EDT [facility] BUN 12 5 - 25 mg/dL LAB CHEMISTRY METHOD 05/16/2024 10:44 AM EDT [facility] Creatinine 0.60 0.50 - 1.10 mg/dL LAB CHEMISTRY METHOD 05/16/2024 10:44 AM EDT [facility] eGFR 97 >=60 mL/min/1. 73m2 LAB CHEMISTRY METHOD 05/16/2024 10:44 AM EDT [facility] Comment:Calculation based on the Chronic [...] NATHAN LAB BLOOD ORDERABLES Final Resul t [facility] [address] [place] [address], * Diabetes Foot Exam (10/17/2023) Pathologist [facility] Diabetes: Annual Foot Exam Abstracted Historical Provider MD HEALTH MAINTENANCE Final Result * Urine Albumin Creatinine Ratio (10/11/2023) Pathologist [facility] Urine Albumin Creatinine Ratio Abstracted Historical Provider HEALTH MAINTENANCE Final Result * Depression Screening (08/10/2023) Pathologist [facility] Depression Screening Abstracted Historical Provider HEALTH MAINTENANCE Final Result * Falls Risk Assessment (02/20/2023) Falls Risk Assessment Abstracted Historical Provider HEALTH MAINTENANCE Final Result * Colonoscopy (08/23/2017) Colonoscopy No interpretation , Abstracted Anatomical Region Laterality Modality Other Historical Provider HEALTH MAINTENANCE Final Result * Hepatitis C Screening (08/01/2012) Hepatitis C Screening Abstracted Historical Provider HEALTH MAINTENANCE Final Result from Last 3 Months or Most Recently Relevant to Health Maintenance Insurance [employer] Care Teams Behaviorist Relationship Specialty Start Date End Date Sadaf Buckley MD [address] [place] [address] PCP - General Internal Medicine 09/10/19
--- OUTSIDE RECORDS SUMMARY | 2024-12-10 11:06 | XMS_ITS | Clinical Summary ---
Author Organization [employer] Address [address] [facility] [address] [place] [address] Care Team Providers Care Viscosity Inspector Name Role Phone Unavailable Primary Care Provider Unavailabl e Encounters Date Type Department Care Team Description 11/18/2024 9:15 AM EDT Nurse Only [facility] [address] [place] [address] Elizabeth Lawson RN Encounter for immunization from [...] age to complete this [place] [id number] [facility] , [address] [place] [address]
--- OUTSIDE RECORDS SUMMARY | 2024-12-10 11:06 | XMS_ITS | Encounter Summary ---
Author Organization [employer] Address [address] [place] [address] Care Team Providers Care Whipper Name Role Phone Sadaf Buckley MD Primary Care Provider [phone] Reason for Visit * Reason Onset Date Comments Results 12/08/2024 Encounter Details Date Type Department Care Team (Late st Contact Info) Description 12/08/2024 Telephone Adult Medicine [facility] [address], [place] [phone] Sadaf Buckley MD [address] [employer], [place] Social History Tobacco Use Types Packs/Day Years [...] on file documented as of this encounter Progress Notes * Kimberli Richard - 12/08/2024 1:07 PM EDT Patient came in for results on her bone Density scan from 02/11/2024. Patients states she received letter that results are in Mychart but she does not use Mychart asking a copy of results be mailed to her. Please advise documented in this encounter Plan of Treatment Upcoming Encounters Date Type Department Care Team (Late st Contact Info) Description 12/15/2024 12:45 PM EDT Appointment Radiology Department - [address] [phone] 12/15/2024 1:30 PM EDT Appointment Radiology Department - [address] [phone] 2024 7:45 AM EDT Office Visit Endocrinology - [address] [phone] Cami Dennis PA [address] [place] [address] 02/16/2025 8:15 AM EST Office Visit Adult Medicine South - [address] [phone] Sadaf Buckley MD [address] [place] [address] 03/09/2025 9:00 AM EST Office Visit Obstetrics and Gynecology - [address] [phone] Pita Del Angel, [address] documented as of this encounter Visit Diagnoses Not on filedocumented in this encounter Care Teams Whipper Relationship Specialty Start Date End Date Sadaf Buckley MD [address] [place] [address] PCP - General Internal Medicine 09/10/19 documented as of this encounter
--- OUTSIDE RECORDS SUMMARY | 2024-12-10 11:06 | XMS_ITS | Patient Health Record ---
Author Organization [facility] Address [address] [facility] [address] [place] [address] Care Team Providers Care Range Manager Name Role Phone Sadaf Buckley Primary Care Provider DUANE Lee Unavailable [phone] Allergies Allergen (clinical drug ingredient) Drug/Non Drug Allergy documented on EMR Reaction Allergy Type Onset Date Status cephalexin Cephalexin Unknown Drug Allergy Activ e Substance with 7-jkltbwk-5-methylgluta ryl-coenzyme A reductase inhibitor mechanism of action [...] specified complication (E11.69) Active confirmed Problem Obesity (572611287) Obesity, unspecified (E66.9) Active confirmed Problem Acquired hammer toe of right foot (711466531440 9105) Other hammer toe(s) (acquired), right foot (M20.41) Active confirmed Problem Acquired hammer toe of left foot ([id number] 9103) Other hammer toe(s) (acquired), left foot (M20.42) Active confirmed Vital Signs Heart Rate 79 /min 08/11/2024 Temperature 97.7 degrees Fahrenheit 08/11/2024 Respiratory Rate 16 /min 08/11/2024 Height 5ft 4.5in in 08/11/2024 Weight 203.6 lbs 08/11/2024 BMI 34.4 kg/m2 08/11/2024 Encounters Encounter Location Date Provider Diagnosis [facility] [address] [facility] [address] [place] [address] 08/11/2024 DUANE NGUYEN Type 2 diabetes mellitus [...] blood sugar control and the importance of vyExHW2y of less than 7.0%. I reviewed the [...] Name:DUANE NGUYEN, 08/12/2025 08:00:00 AM, [address] [facility] [address], [place], [address], Insurance Providers Payer Name Payer Address Payer Phone Subscriber Number Group Number Insured Name Patient Relationship to Insured Coverage Start Date Coverage End Date [facility] [address] [facility] [address] [place] [address] [id number] Woo Nhung Self - patient is the [...]
== END 2024-12-10 10:28 | disposition home or self-care (01) ==
LOC: HO.HGI 09:42
PROVIDERS: PCP Internal Medicine; Visit Provider Internal Medicine
DX: K52.9 Noninfective gastroenteritis and colitis, unspecified (principal); I42.9 Cardiomyopathy, unspecified; I44.7 Left bundle-branch block, unspecified; I10 Essential (primary) hypertension; Z80.0 Family history of malignant neoplasm of digestive organs; Z86.0100 Personal history of colon polyps, unspecified
CPT/HCPCS: 99204

== ENCOUNTER → 2024-12-10 09:41 | Outpatient (BNVA) | payer MEDICARE, SELFPAY | PROVIDERS: PCP Internal Medicine; Visit Provider Internal Medicine | DX: K52.9 Noninfective gastroenteritis and colitis, unspecified (principal); I42.9 Cardiomyopathy, unspecified; I44.7 Left bundle-branch block, unspecified; I10 Essential (primary) hypertension; Z80.0 Family history of malignant neoplasm of digestive organs; Z86.0100 Personal history of colon polyps, unspecified | CPT/HCPCS: 99202 ==

== ENCOUNTER 2024-12-31 08:09 | Outpatient (AMB) | payer MEDICARE, SELFPAY ==
--- OUTSIDE RECORDS SUMMARY | 2024-12-31 08:19 | XMS_ITS | Clinical Summary ---
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 Peuserp-Hdn-Frx Reductase Inhibitors 09/14/2017 Elevated LFTS Medications nystatin-triam cinolone (MYCOLOG II) ointment Apply a thin layer to affected area twice weekly 09/18/19 24 Active FREESTYLE LANCETS MISC Test blood sugar once daily E11.9 12/14/19 23 Active ibuprofen (ADVIL,MOTRIN) 400 mg tablet Take 1 Tablet by mouth every 8 hours as needed. Active calcium carbonate/joseph min D3 (CALCIUM + D ORAL) Take 2,000 mg by mouth daily. Active lisinopriL (PRINIVIL,ZEST RIL) 20 mg tablet Take 1 tablet (20 mg total) by mouth 1 (one) time each day. 90 tablet 1 01/17/20 24 Active metFORMIN (GLUCOPHAGE) 500 mg tablet Take 1 tablet (500 mg total) by mouth 1 (one) time each day with breakfast. 02/11/20 24 Active aspirin 81 mg EC tablet Take [...] (one) time each day. 90 tablet 1 08/19/19 25 Active dulaglutide (TRULICITY) 3 mg/0.5 mL pen injector injectionIndic ations:Type 2 diabetes mellitus with obesity Inject 0.5 mL (3 mg total) under the skin every 7 (seven) days. 3 mL 5 10/07/19 25 Active blood sugar diagnostic (FreeStyle Lite Strips) test strip Use as instructedTest blood sugar once daily E11.9 100 each 3 12/23/19 25 Active blood sugar diagnostic (FreeStyle Lite Strips) test strip Test blood sugar once daily E11.9 12/14/19 23 025 Discontin ued(Reord er) Active Problems Problem Noted Date Diagnosed Date Breast cancer ([facility] V24, [facility] V28) 025 Overview (12/17/2024): 10.25 right invasive ductal carcinoma Osteopenia 02/20/2023 Severe obesity (BMI 35.0-35. 9 with comorbidity) ([facility] V24, [facility] V28) 03/06/2019 Lichen sclerosus 08/13/2018 Overview (08/15/2024): Type 2 diabetes mellitus with obesity 09/14/2017 Overview (11/26/2024): 11/26/24 Regulatory IMO Update Polycystic liver disease 06/20/2014 Degenerative disc disease, lumbar 05/18/2014 Compression fracture of T12 vertebra ([facility] V24, [facility] V28) 04/13/2014 Sciatica 12/03/2012 Overview (12/06/2023): Herniated L4-5 disc on left, MRI, 11/14/2012 Nuclear sclerosis 04/17/2011 Overview (12/06/2023): Noted by Dr. Oliveira on 10/21/2010 exam. Hyperlipidemia 01/04/2009 Hypertension 04/25/2005 Hypothyroidism 04/25/2005 Overview (12/06/2023): Hyperthyroidism, ablated with 22.8 mCi of iodine-131 on 12/29/2009 Encounters Date Type Department Care Team Description 2024 7:45 AM EDT Office Visit [address] [phone] Cami Dennis PA Type 2 diabetes mellitus with obesity (Primary Dx); Postablative hypothyroidism; Hyperlipidemia, unspecified hyperlipidemia type; Primary hypertension 2024 Telephone Adult Medicine [address] [phone] Haleigh Fernandez, EDGARD 2024 Telephone Breast Care [address] [phone] Lupe Lilly, EDGARD 2024 Telephone Adult Medicine [address] [phone] Sadaf Buckley MD 12/17/2024 Results Follow-Up [address] [phone] Cami Dennis PA 12/15/2024 12:34 PM EDT - 12/15/2024 11:59 PM EDT Hospital Encounter Radiology Department - [address] [phone] Abnormal mammogram Discharge Disposition: Home or Self Care 12/15/2024 12:34 PM EDT - 12/15/2024 11:59 PM EDT Hospital Encounter Radiology Department [address] [phone] Abnormal mammogram Discharge Disposition: Home or Self Care 12/08/2024 9:49 AM EDT - 12/08/2024 11:59 PM EDT Hospital Encounter Radiology Department [address] [phone] Abnormal mammogram Discharge Disposition: Home or Self Care 12/08/2024 9:49 AM EDT - 12/08/2024 11:59 PM EDT Hospital Encounter Radiology Department - [address] [phone] Abnormal mammogram Discharge Disposition: Home or Self Care 12/08/2024 Telephone Adult Medicine [address] [phone] Sadaf Buckley MD 11/14/2024 7:15 AM EDT - 11/14/2024 11:59 PM EDT Hospital Encounter Radiology Department - [address] [phone] Encounter for screening mammogram for breast cancer Discharge Disposition: Home or Self Care 11/11/2024 1:15 PM EDT - 11/11/2024 11:59 PM EDT Hospital Encounter Bone Density - [address] [phone] Osteopenia, unspecified location; Postmenopausal Discharge Disposition: Home or Self Care 10/03/2024 Telephone Adult Medicine [address] [phone] Concepcion Watts MA from Last 3 Months [...] (BMI 35.0-35. 9 with comorbidity) (CMS/HCC V24, CMS/[facility] V28) 03/06/2019 Polycystic liver disease 06/20/2014 Osteopenia 02/20/2023 Hypothyroidism 04/25/2005 Hyperthyroidism, ablated with 22.8 mCi of iodine-131 on 12/29/2009 Hypertension 04/25/2005 Hyperlipidemia 01/04/2009 Compression fracture of T12 vertebra ([facility] V24, [facility] V28) 04/13/2014 Degenerative disc disease, lumbar [...] Sign Reading Time Taken Comments Blood Pressure 103/67 2024 7:59 AM EDT Pulse 83 2024 7:59 AM EDT Temperature 36.2 C (97.2 F) 08/18/2024 1:32 PM EDT Respiratory Rate 14 2024 7:59 AM EDT Oxygen Saturation 93% 08/18/2024 1:32 PM EDT Inhaled Oxygen Concentration - - Weight 95.3 kg (210 lb) 2024 7:59 AM EDT Height 163.8 cm (5' 4.5 ) 2024 7:59 AM EDT Body Mass Index 35.49 2024 7:59 AM EDT Plan of Treatment Upcoming Encounters Date Type Department Care Team (Late st Contact Info) Description 02/16/2025 8:15 AM EST Office Visit Adult Medicine South - [address] [phone] Sadaf Buckley MD [address] [place], [place] 03/09/2025 9:00 AM EST Office Visit Obstetrics and Gynecology - [address] [phone] Pita Del Angel, CHEVY [address] [place], [place] 03/25/2025 7:45 AM EST Office Visit Endocrinology - [address] [phone] Cami Dennis PA [address] [place], [place] Health Maintenance Due Date Last Done Comments RSV Immunization Adult Patients (1 - Risk 50-74 years 1-dose series) 12/23/2003 Social Influencers of Health Screening 02/04/2022 Falls Risk Assessment 02/21/2024 02/20/2023 Depression Screening 02/27/2024 08/10/2023 Medicare Annual Wellness Visit 08/09/2024 08/10/2023 Colorectal Cancer Screening: Colonoscopy 08/23/2024 08/23/2017 Diabetes: Annual Retina Eye Exam 10/10/2024 10/11/2023 Diabetes: Annual Foot Exam 10/16/2024 10/17/2023 COVID-19 Vaccine ( season) 2024 12/16/2022, 2021, 2021, Additional history exists Diabetes: Blood Sugar Control Test (HGBA1C) 06/16/2025 12/16/2024, 05/16/2024, 01/17/2024, Additional history exists Diabetes: Annual Urine Albumin-Creatinine Ratio (uACR) 12/16/2025 12/16/2024, 10/11/2023 Diabetes: Annual GFR (Glomerular Filtration Rate) 12/16/2025 12/16/2024, 05/16/2024, 10/11/2023, Additional history exists Hypertension/CHF/CAD Annual BMP Blood Test 12/16/2025 12/16/2024, 05/16/2024, 10/11/2023, Additional history exists Breast Cancer Screening 12/08/2026 12/09/19, 11/14/2024, 11/08/2023, [...] Procedure Name Priority Date/Time Associated Diagnosis Comments POC GLUCOSE Routine 2024 8:20 AM EDT Type 2 diabetes mellitus with obesity HEMOGLOBIN A1C Routine 12/16/2024 7:53 AM EDT Type 2 diabetes mellitus in patient with obesity ([facility] V24, [facility] V28) MICROALBUMIN CREATININE URINE RATIO Routine 12/16/2024 7:53 AM EDT Type 2 diabetes mellitus in patient with obesity ([facility] V24, [facility] V28) COMPREHENSIVE METABOLIC PANEL Routine 12/16/2024 7:53 AM EDT Hyperlipidemia, unspecified hyperlipidemia type Primary hypertension US BX BREAST PERC 1ST LESION RIGHT Routine 12/15/2024 1:21 PM EDT Abnormal mammogram MG MAMMO DIGITAL DIAGNOSTIC CLIP POST US/MR GUIDE RIGHT Routine 12/15/2024 1:17 PM EDT Abnormal mammogram TISSUE EXAM STAT 12/15/2024 1:12 PM EDT Abnormal mammogram HER-2 EDWIN, FISH Routine 12/15/2024 1:12 PM EDT Abnormal mammogram US BREAST LIMITED BILAT Routine 12/08/2024 10:23 AM EDT Abnormal mammogram MG MAMMO DIGITAL DIAGNOSTIC W ROYER BILAT Routine 12/08/2024 10:07 AM EDT Abnormal mammogram MG MAMMO DIGITAL SCREENING W ROYER BILAT Routine 11/14/2024 7:33 AM EDT Encounter for screening mammogram for breast cancer BD BONE DENSITY DXA AXIAL SKELETON Routine 11/11/2024 1:59 PM EDT Osteopenia, unspecified location Postmenopausal LIPID PANEL WITH REFLEX TO DIRECT LDL Routine 05/16/2024 8:33 AM EDT Hyperlipidemia, unspecified hyperlipidemia type DIABETES FOOT EXAM Routine 10/17/2023 DEPRESSION SCREENING Routine 08/10/2023 FALLS RISK ASSESSMENT Routine 02/20/2023 COLONOSCOPY Routine 08/23/2017 HEPATITIS C SCREENING Routine 08/01/2012 from Last 3 Months or Most Recently Relevant to Health Maintenance Results * POC glucose manually resulted (2024 8:20 AM EDT) Glucose POC 141 mg/dL Blood Capillary blood specimen / Unknown 2024 8:20 AM EDT Cami NATHAN POINT OF CARE TEST ENTER/EDIT OR DERABLES Final Result * (ABNORMAL) Microalbumin creatinine urine ratio (12/16/2024 7:53 AM EDT) Creatinine, Urine 55.0 mg/dL LAB CHEMISTRY METHOD 12/16/2024 11:38 AM EDT [facility] Microalb, Ur 27.3 0.0 - 29.0 mg/L LAB CHEMISTRY METHOD 12/16/2024 11:38 AM EDT [facility] Microalb/Creat Ratio 50(H) <30 mg/g creat LAB CHEMISTRY METHOD 12/16/2024 11:38 AM EDT [facility] Urine Urine specimen obtained by clean catch procedure / Unknown Non-blood Collection / Unknown 12/16/2024 7:53 AM EDT 12/16/2024 7:53 AM EDT us Cami NATHAN LAB URINE ORDERABLES Final Resul t Performing Organization Address City/[facility] de Phone Number [facility] [address] [place] [address], [place] [phone] * Hemoglobin A1c (12/16/2024 7:53 AM EDT) [facility] Hemoglobin A1C 6.3 <6.5 % LAB CHEMISTRY METHOD 12/16/2024 12:29 PM EDT [facility] Mean Bld Glu Estim. 134 mg/dL LAB CHEMISTRY METHOD 12/16/2024 12:29 PM EDT [facility] Blood Venous blood specimen / Unknown Venipuncture / Unknown 12/16/2024 7:53 AM EDT 12/16/2024 7:53 AM EDT Cami NATHAN LAB BLOOD ORDERABLES Final Resul t Performing Organization Address [facility] de Phone Number [facility] [address] [place] [address], [place] [phone] * (ABNORMAL) Comprehensive metabolic panel (12/16/2024 7:53 AM EDT) [facility] Sodium 134 133 - 145 mmol/L LAB CHEMISTRY METHOD 12/16/2024 11:07 AM EDT [facility] Potassium 4.2 3.5 - 5.5 mmol/L LAB CHEMISTRY METHOD 12/16/2024 11:07 AM EDT [facility] Chloride 99 96 - 110 mmol/L LAB CHEMISTRY METHOD 12/16/2024 11:07 AM T [facility] CO2 30 21 - 32 mmol/L LAB CHEMISTRY METHOD 12/16/2024 11:07 AM T [facility] Anion Gap 5 3 - 11 LAB CHEMISTRY METHOD 12/16/2024 11:07 AM [facility] Glucose 111(H) 70 - 100 mg/dL LAB CHEMISTRY METHOD 12/16/2024 11:07 AM T [facility] BUN 17 5 - 25 mg/dL LAB CHEMISTRY METHOD 12/16/2024 11:07 AM [facility] Creatinine 0.60 0.50 - 1.10 mg/dL LAB CHEMISTRY METHOD 12/16/2024 11:07 AM [facility] eGFR 97 >=60 mL/min/1. 73m2 LAB CHEMISTRY METHOD 12/16/2024 11:07 AM [facility] Comment:Calculation based on the Chronic Kidney Disease Epidemiology Collaboration (CKD-EPI) equation refit without adjustment for race. BUN/Creatinine Ratio 28.3 LAB CHEMISTRY METHOD 12/16/2024 11:07 AM [facility] Calcium 9.6 8.5 - 10.5 mg/dL LAB CHEMISTRY METHOD 12/16/2024 11:07 AM [facility] AST (SGOT) 16 10 - 42 unit/L LAB CHEMISTRY METHOD 12/16/2024 11:07 AM [facility] ALT (SGPT) 28 10 - 60 unit/L LAB CHEMISTRY METHOD 12/16/2024 11:07 AM [facility] Alkaline Phosphatase 94 42 - 121 unit/L LAB CHEMISTRY METHOD 12/16/2024 11:07 AM [facility] Total Protein 7.3 6.0 - 8.0 g/dL LAB CHEMISTRY METHOD 12/16/2024 11:07 AM [facility] Albumin 4.0 3.2 - 5.0 g/dL LAB CHEMISTRY METHOD 12/16/2024 11:07 AM [facility] Total Bilirubin 0.9 0.0 - 1.4 mg/dL LAB CHEMISTRY METHOD 12/16/2024 11:07 AM [facility] Blood Venous blood specimen / Unknown Venipuncture / Unknown 12/16/2024 7:53 AM EDT 12/16/2024 7:53 AM EDT us Cami NATHAN LAB BLOOD ORDERABLES Final Resul t [facility] [address] [place] [address], [place] [phone] * US Bx Breast Perc 1st Lesion Right (12/15/2024 1:21 PM EDT) Anatomical Region Laterality Modality Breast Right Ultrasound 12/15/2024 2:30 PM EDT Addenda Addendum by Valentina Carrero MD on 12/16/2024 2:44 PM EDT Addendum: Pathology: Right breast, 9 o'clock, 2 cm FN, ribbon clip, ultrasound-guided core biopsy: Invasive ductal carcinoma with micropapillary features ? Greatest length of carcinoma: 8 mm [place] score: Grade 2 Glandular/tubular morphology: 3 Nuclear pleomorphism: 3 Mitotic rate: 1 In situ carcinoma: Not identified Lymphovascular invasion: Not identified ? Note: Prognostic marker immunohistochemistry results will follow in an addendum. at 1359 EDT The pathology is concordant with the imaging features. The malignant pathology was discussed with the patient by telephone at 2:40 PM on 12/16/2024. The patient states that she prefers to see a surgeon at [facility] which is closer to her home. But she is willing to schedule a consult with the surgeon at [facility]. Surgical consultation at [facility] is being arranged. -------- ADDENDUM -------- Dictated By: Valentina Carrero Dictated Date: 12/16/2024 14:37 ET Assigned Physician: Valentina Carrero Reviewed and Electronically Signed By: Valentina Carrero Signed Date: 12/16/2024 14:44 ET Workstation ID: [id number] Transcribed By: Self Edit Transcribed Date: 12/16/2024 14:37 ET Impressions 12/15/2024 2:35 PM EDT Ultrasound-guided core biopsy of the right breast as described. RECOMMENDATION: Pathology pending for the right breast. -------- FINAL REPORT -------- Dictated By: Valentina Carrero Dictated Date: 12/15/2024 14:30 ET Assigned Physician: Valentina Carrero Reviewed and Electronically Signed By: Valentina Carrero Signed Date: 12/15/2024 14:35 ET Workstation ID: [id number] Transcribed By: Self Edit Transcribed Date: 12/15/2024 14:30 ET Narrative 12/15/2024 2:35 PM EDT ULTRASOUND-GUIDED BREAST CORE NEEDLE BIOPSY CLINICAL: 68 years old, Female, referred for ultrasound breast biopsy upper outer right breast. COMPARISON: Right breast ultrasound and diagnostic right breast mammogram 12/08/2024. Mammograms dating back to 10/25/2020. PROCEDURE: Informed consent was obtained. Preprocedure time out was performed per routine. Preliminary sonographic imaging of the outer right breast confirms the presence of a 0.9 x 0.7 x 0.8 cm irregular hypoechoic nodule at the 9 o'clock position 2 cm from the nipple. The patient was positioned in the supine oblique position, and the skin was prepared using sterile technique. 1% Lidocaine buffered with bicarbonate was used for local anesthesia. Under real-time ultrasound guidance with a 14 core biopsy needle, a lateral approach to the target was used. A total of 4 biopsy specimens were obtained, with pre- and post-fire images documenting needle placement for each pass. Specimens were sent for pathologic analysis, results pending. Hemostasis was achieved with manual compression. There were no immediate complications. The patient tolerated the procedure well and left the department in good condition. A ribbon shaped clip was deployed to nakul the biopsy site. The clip lies at the targeted site on the postprocedure right breast mammogram. Procedure Note Valentina Carrero MD - 12/15/2024 ULTRASOUND-GUIDED BREAST CORE NEEDLE BIOPSY CLINICAL: 68 years old, Female, referred for ultrasound breast biopsyupper outer right breast. COMPARISON: Right breast ultrasound and diagnostic right breast [id number]. Mammograms dating back to 10/25/2020. PROCEDURE: Informed consent was obtained. Preprocedure time out was performed perroutine. Preliminary sonographic imaging of the outer right breastconfirms the presence of a 0.9 x 0.7 x 0.8 cm irregular hypoechoic noduleat the 9 o'clock position 2 cm from the nipple. The patient was positioned in the supine oblique position, and the skinwas prepared using sterile technique. 1% Lidocaine buffered withbicarbonate was used for local anesthesia. Under real-time ultrasoundguidance with a 14 core biopsy needle, a lateral approach to the targetwas used. A total of 4 biopsy specimens were obtained, with pre- andpost-fire images documenting needle placement for each pass. Specimenswere sent for pathologic analysis, results pending. Hemostasis wasachieved with manual compression. There were no immediate complications.The patient tolerated the procedure well and left the department in goodcondition. A ribbon shaped clip was deployed to nakul the biopsy site. The clip liesat the targeted site on the postprocedure right breast mammogram. IMPRESSION: Ultrasound-guided core biopsy of the right breast as described. RECOMMENDATION: Pathology pending for the right breast. -------- FINAL REPORT -------- Dictated By: Valentina Carrero Dictated Date: 12/15/2024 14:30 ET Assigned Physician: Valentina Carrero Reviewed and Electronically Signed By: Valentina Carrero Signed Date: 12/15/2024 14:35 ET Workstation ID: [id number] Transcribed By: Self Edit Transcribed Date: 12/15/2024 14:30 ET us Sadaf Buckley MD IMG US PROCEDURES Edited Result - Final * MG Mammo Digital Diagnostic Clip Post US/MR Guide Right (12/15/2024 1:17 PM EDT) Anatomical Region Laterality Modality Breast Right Mammography 12/15/2024 2:30 PM EDT Addenda Addendum by Valentina Carrero MD on 12/16/2024 2:44 PM EDT Addendum: Pathology: Right breast, 9 o'clock, 2 cm FN, ribbon clip, ultrasound-guided core biopsy: Invasive ductal carcinoma with micropapillary features ? Greatest length of carcinoma: 8 mm Darryl score: Grade 2 Glandular/tubular morphology: 3 Nuclear pleomorphism: 3 Mitotic rate: 1 In situ carcinoma: Not identified Lymphovascular invasion: Not identified ? Note: Prognostic marker immunohistochemistry results will follow in an addendum. at 1359 EDT The pathology is concordant with the imaging features. The malignant pathology was discussed with the patient by telephone at 2:40 PM on 12/16/2024. The patient states that she prefers to see a surgeon at [facility] which is closer to her home. But she is willing to schedule a consult with the surgeon at [facility]. Surgical consultation at [facility] is being arranged. -------- ADDENDUM -------- Dictated By: Valentina Carrero Dictated Date: 12/16/2024 14:37 ET Assigned Physician: Valentina Carrero Reviewed and Electronically Signed By: Valentina Carrero Signed Date: 12/16/2024 14:44 ET Workstation ID: [id number] Transcribed By: Self Edit Transcribed Date: 12/16/2024 14:37 ET Impressions 12/15/2024 2:35 PM EDT Ultrasound-guided core biopsy of the right breast as described. RECOMMENDATION: Pathology pending for the right breast. -------- FINAL REPORT -------- Dictated By: Valentina Carrero Dictated Date: 12/15/2024 14:30 ET Assigned Physician: Valentina Carrero Reviewed and Electronically Signed By: Valentina Carrero Signed Date: 12/15/2024 14:35 ET Workstation ID: [id number] Transcribed By: Self Edit Transcribed Date: 12/15/2024 14:30 ET Narrative 12/15/2024 2:35 PM EDT ULTRASOUND-GUIDED BREAST CORE NEEDLE BIOPSY CLINICAL: 68 years old, Female, referred for ultrasound breast biopsy upper outer right breast. COMPARISON: Right breast ultrasound and diagnostic right breast mammogram 12/08/2024. Mammograms dating back to 10/25/2020. PROCEDURE: Informed consent was obtained. Preprocedure time out was performed per routine. Preliminary sonographic imaging of the outer right breast confirms the presence of a 0.9 x 0.7 x 0.8 cm irregular hypoechoic nodule at the 9 o'clock position 2 cm from the nipple. The patient was positioned in the supine oblique position, and the skin was prepared using sterile technique. 1% Lidocaine buffered with bicarbonate was used for local anesthesia. Under real-time ultrasound guidance with a 14 core biopsy needle, a lateral approach to the target was used. A total of 4 biopsy specimens were obtained, with pre- and post-fire images documenting needle placement for each pass. Specimens were sent for pathologic analysis, results pending. Hemostasis was achieved with manual compression. There were no immediate complications. The patient tolerated the procedure well and left the department in good condition. A ribbon shaped clip was deployed to nakul the biopsy site. The clip lies at the targeted site on the postprocedure right breast mammogram. Procedure Note Valentina Carrero MD - 12/15/2024 ULTRASOUND-GUIDED BREAST CORE NEEDLE BIOPSY CLINICAL: 68 years old, Female, referred for ultrasound breast biopsyupper outer right breast. COMPARISON: Right breast ultrasound and diagnostic right breast [id number]/2025. Mammograms dating back to 10/25/2020. PROCEDURE: Informed consent was obtained. Preprocedure time out was performed perroutine. Preliminary sonographic imaging of the outer right breastconfirms the presence of a 0.9 x 0.7 x 0.8 cm irregular hypoechoic noduleat the 9 o'clock position 2 cm from the nipple. The patient was positioned in the supine oblique position, and the skinwas prepared using sterile technique. 1% Lidocaine buffered withbicarbonate was used for local anesthesia. Under real-time ultrasoundguidance with a 14 core biopsy needle, a lateral approach to the targetwas used. A total of 4 biopsy specimens were obtained, with pre- andpost-fire images documenting needle placement for each pass. Specimenswere sent for pathologic analysis, results pending. Hemostasis wasachieved with manual compression. There were no immediate complications.The patient tolerated the procedure well and left the department in goodcondition. A ribbon shaped clip was deployed to nakul the biopsy site. The clip liesat the targeted site on the postprocedure right breast mammogram. IMPRESSION: Ultrasound-guided core biopsy of the right breast as described. RECOMMENDATION: Pathology pending for the right breast. -------- FINAL REPORT -------- Dictated By: Valentina Carrero Dictated Date: 12/15/2024 14:30 ET Assigned Physician: Valentina Carrero Reviewed and Electronically Signed By: Valentina Carrero Signed Date: 12/15/2024 14:35 ET Workstation ID: [id number] Transcribed By: Self Edit Transcribed Date: 12/15/2024 14:30 ET us Sadaf Buckley MD IM BI PROCEDURES Edited Result - Final * Tissue exam (12/15/2024 1:12 PM EDT) Addendum 2 This case was sent t o [employer], [id number], (CLIA #[id number]) for HER2 Breast studies. Their diagnosis is as follows: FISH Analysis HER2 Breast Results: Negative Interpretation: RESULT INTERPRETATION HER2 Signals/Nucleus 3.1 CEN17 Signals/Nucleus 2.7 HER2/CEN17 Signal Ratio 1.2 Negative Number of Observers 1 Group 5 No IHC Needed Results show no evidence of HER2 amplification and a HER2/CEN17 ratio of <2.0 with an average HER2 copy number <4.0 signals per cell. This is a NEGATIVE result. Electronic Signature Laith Machado M.D., Ph.D. Report Date: 12/24/2024 04:14:41 PM ET (Full report on file) 12:01 PM EDT [facility] Addendum electronically signed by Anyi Calderon MD on 12/25/2024 at 1201 EDT Addendum Breast Carcinoma Biomarkers: Estrogen Receptor: Positive (>95% Positive nuclei, average intensity: strong) Internal controls stained appropriately Progesterone Receptor: Positive (>95% Positive nuclei, average intensity: strong) Internal controls stained appropriately HER2: Equivocal (2+) (0% of cells show strong complete membrane staining) All external controls stained appropriately Note: HER2-Edwin FISH will be performed and will be reported in a supplemental report. Patients with breast cancers that are HER2 IHC 3+ or IHC 2+/MILTON amplified may be eligible for several therapies that disrupt HER2 signaling pathways. Invasive breast cancers that test 'HER2-negative' (IHC 0, 1+ or 2+/MILTON not-amplified) are more specifically considered 'HER2-negative for protein overexpression/gene amplification' since non-overexpressed levels of the HER2 protein may be present in these cases. Patients with breast cancers that are HER2 IHC 1+ or IHC 2+/MILTON not amplified may be eligible for a treatment that targets non-amplified/non-over expressed levels of HER2 expression for cytotoxic drug delivery (IHC 0 results do not result in eligibility currently). FFPE Block: A1 Cold Ischemia and Fixation Times: Meets requirements specified in the latest version of the ASCO/CAP guidelines These tests have not been validated for use on decalcified tissue, non-formalin fixed tissue, or tissue fixed outside of the ASCO/CAP guidelines. ASCO/CAP criteria for evaluation: ER: Staining evaluation ER: Low positive=1-10% positive nuclei, Positive >10% positive nuclei CO: Staining evaluation CO: Positive= >1% positive nuclei. HER2: Staining evaluation for HER2 (ASCO/CAP GUIDELINES 2018): - NEGATIVE (0): No staining or incomplete barely perceptible staining in <10 % of cells. - NEGATIVE (1+): Incomplete barely perceptible staining in >10 % of cells. - EQUIVOCAL (2+): Strong complete staining in 10% or less of cells or weak or moderate staining in >10 % cells. - POSITIVE (3+): Strong complete staining in more than 10% of cells. Detection system: Polymer HRP, [facility]-developed tests In Vitro Diagnostic: ER clone SP1 i'mma, CO clone 16 Leica Analyte specific reagents: HER2 clone [id number] Biocare 12:01 PM EDT [facility] Addendum electronically signed by Anyi Calderon MD on 12/17/2024 at 1030 EDT Final Diagnosis Right breast, 9 o'clock, 2 cm FN, ribbon clip, ultrasound-guided core biopsy: Invasive ductal carcinoma with micropapillary features Greatest length of carcinoma: 8 mm Darryl score: Grade 2 Glandular/tubular morphology: 3 Nuclear pleomorphism: 3 Mitotic rate: 1 In situ carcinoma: Not identified Lymphovascular invasion: Not identified Note: Prognostic marker immunohistochemistry results will follow in an addendum. 12:01 PM EDT [facility] at [address] John provided second review for new malignancy. Notification sent to Dr. Carrero via secure chat on 12/16/24. 12:01 PM EDT [facility] Clinical Information cancer vs other ribbon clip lot [id number] 12:01 PM EDT [facility] Gross Description A. Breast, Right, rt 9;00 2cmfn breast/ribbon clip lot [id number] vs other: Labeled breast R, right 9:00 . Received in formalin are four cylindrical yellow-armando fibrofatty breast cores, ranging from 0.4 x 0.1 cm to 1.2 x 0.1 cm, which are submitted in toto between sponges in one cassette, four pieces, x 3. Time collected: 1:12 PM 12/15/2024 Time put in formalin: 1:14 PM 12/15/2024 Total cold ischemic time: 2 minutes Time tissue exits final stage of formalin on tissue processor: 12 AM 12/16/2024 Total fixation time (ideally between 6 and 72 hours): 10.5 hours KLAUDIA 12:01 PM EDT [facility] Disclaimer NOTE: The immunohistochemical tests and in situ hybridization tests were developed and their performance characteristics were determined by [facility]. They have not been cleared or approved by the U.S. Food and Drug Administration. The FDA has determined that such clearance or approval is not necessary. These tests are used for clinical purposes. They should not be regarded as investigational or for research. This laboratory is certified under the Clinical Laboratory Improvement Amendments of 1988 (CLIA) as qualified to perform high complexity clinical laboratory testing. (controls appropriate) Unless otherwise specified, all tissue is 10% NB formalin fixed and paraffin embedded. 12:01 PM EDT [facility] Tissue Right breast structure / Unknown 12/15/2024 1:12 PM EDT 12/15/2024 4:39 PM EDT us Valentina Carrero MD LAB PATHOLOGY ORDERABLES Edite d Result - Final [facility] [address] [place] [address], * HER-2 EDWIN, FISH (12/15/2024 1:12 PM EDT) Scan Result See Scanned Result 12/29/2024 9:46 AM EST EXTERNAL LAB (NON-INTERFAC ED) Tissue Right breast structure / Unknown 12/15/2024 1:12 PM EDT 12/17/2024 1:31 PM EDT us Valentina Carrero MD LAB CYTOGENETICS ORDERABLES Fi nal Result EXTERNAL LAB (NON-INTERFACED) * (ABNORMAL) US Breast Limited bilat (12/08/2024 [...] biopsy of right breast recommended. MAMMO LOCATION: [facility], [address] [place] [address], [id number], . -------- FINAL REPORT -------- Dictated By: Melanie Alvarez Dictated Date: 12/08/2024 10:48 ET Assigned Physician: Melanie Alvarez Reviewed and Electronically Signed By: Melanie Alvarez Signed Date: 12/08/2024 10:58 ET Workstation ID: [id number] Transcribed By: Self Edit Transcribed Date: 12/08/2024 [...] biopsy of right breast recommended. MAMMO LOCATION: [facility], [address] [place] [address], [id number], . -------- FINAL REPORT -------- Dictated By: Melanie Alvarez Dictated Date: 12/08/2024 10:48 ET Assigned Physician: Melanie Alvarez Reviewed and Electronically Signed By: Melanie Alvarez Signed Date: 12/08/2024 10:58 ET Workstation ID: [id number] Transcribed By: Self Edit Transcribed Date: 12/08/2024 [...] biopsy of right breast recommended. MAMMO LOCATION: [facility], [address] [place] [address], [id number], . -------- FINAL REPORT -------- Dictated By: Melanie Alvarez Dictated Date: 12/08/2024 10:48 ET Assigned Physician: Melanie Alvarez Reviewed and Electronically Signed By: Melanie Alvarez Signed Date: 12/08/2024 10:58 ET Workstation ID: [id number] Transcribed By: Self Edit Transcribed Date: 12/08/2024 [...] biopsy of right breast recommended. MAMMO LOCATION: [facility], [address] [place] [address], [id number], . -------- FINAL REPORT -------- Dictated By: Melanie Alvarez Dictated Date: 12/08/2024 10:48 ET Assigned Physician: Melanie Alvarez Reviewed and Electronically Signed By: Melanie Alvarez Signed Date: 12/08/2024 10:58 ET Workstation ID: [id number] Transcribed By: Self Edit Transcribed Date: 12/08/2024 [...] Additional bilateral breast imaging recommended. Mammo Location: [facility], [address] [place] [address], [id number], . -------- FINAL REPORT -------- Dictated By: Christine Valencia Dictated Date: 11/17/2024 15:50 ET Assigned Physician: Christine Valencia Reviewed and Electronically Signed By: Christine Valencia Signed Date: 11/17/2024 16:22 ET Workstation ID: [id number] Transcribed By: Self Edit Transcribed Date: 11/17/2024 [...] Additional bilateral breast imaging recommended. Mammo Location: [facility], [address] [place] [address], [id number], . -------- FINAL REPORT -------- Dictated By: Christine Valencia Dictated Date: 11/17/2024 15:50 ET Assigned Physician: Christine Valencia Reviewed and Electronically Signed By: Christine Valencia Signed Date: 11/17/2024 16:22 ET Workstation ID: [id number] Transcribed By: Self Edit Transcribed Date: 11/17/2024 15:54 ET us Self Referral [facility] IMG BI PROCEDURES Final Resu lt * BD Bone Density DXA Axial Skeleton (11/11/2024 1:59 PM EDT) Anatomical Region Laterality Modality Wrist, Hip, L-spine Bone Densito metry 11/11/2024 4:10 PM EDT Impressions 11/11/2024 4:13 PM EDT Osteopenia by WHO criteria. [facility] Department of Internal [...] alternative screening schedule based on jin Callaway., [facility] March 16, 2011 for patients with osteopenia [...] Signed Date: 11/11/2024 16:13 ET Workstation ID: [id number] Transcribed By: Self Edit Transcribed Date: 11/11/2024 [...] T12. IMPRESSION: Osteopenia by WHO criteria. [facility] Department of Internal [...] alternative screening schedule based on jin Callaway., PANFILOJMGideonuary 2011 for patients with osteopenia (based on [...] Signed Date: 11/11/2024 16:13 ET Workstation ID: [id number] Transcribed By: Self Edit Transcribed Date: 11/11/2024 [...] mg/dL LAB CHEMISTRY METHOD 05/16/2024 10:45 AM [facility] VLDL Cholesterol Brian 24.2 mg/dL LAB CHEMISTRY METHOD 05/16/2024 10:45 AM EDT [facility] Non HDL Chol. (LDL+VLDL) 159(H) <145 mg/dL LAB CHEMISTRY METHOD [facility] Chol/HDL Ratio 3.4 0.0 - 4.4 LAB CHEMISTRY METHOD 05/16/2024 10:45 AM EDT [facility] Blood Venous blood specimen / Unknown Venipuncture / Unknown 05/16/2024 8:33 AM EDT 05/16/2024 8:33 AM EDT Cami NATHAN LAB BLOOD ORDERABLES Final Resul t [facility] [address] [place] [address], * Diabetes Foot Exam (10/17/2023) [facility] Diabetes: Annual Foot Exam Abstracted [facility] Provider HEALTH MAINTENANCE Final Result * Depression Screening (08/10/2023) [facility] Depression Screening Abstracted [facility] Provider HEALTH MAINTENANCE Final Result * Falls Risk Assessment (02/20/2023) [facility] Falls Risk Assessment Abstracted [facility] Provider HEALTH MAINTENANCE Final Result * Colonoscopy (08/23/2017) [facility] Colonoscopy No interpretation , Abstracted Anatomical Region Laterality Modality Other Result [facility] Provider HEALTH MAINTENANCE Final Result * Hepatitis C Screening (08/01/2012) [facility] Hepatitis C Screening Abstracted Result [facility] Provider HEALTH MAINTENANCE Final Result from Last 3 Months or Most Recently Relevant to Health Maintenance Insurance [employer] 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
[2024-12-31 08:23] VITALS: BP 124/66; PULSE 71; BMI 36.4
--- NOTE | 2024-12-31 08:23 | MHC.OFFVIS ---
Vital Signs 12/31/24 08:23 Height 5 ft 4 in Weight 212 lb 1.355 oz BMI 36.4 BP 124/66 Blood Pressure Location Lt brachial Position Sitting Pulse 71 Pulse Source Pulse Oximeter Intake Visit Reasons: 3m follow up Intake Note: 3m Follow up . pt state hollow the chest with activity . Community Health Advisor Required: No Accompanied by: Self / Same As Patient Allergies Smzinhc-FEP-GqI Reductase Inhibitor Adverse Reaction (Severe, Verified 12/31/24 08:31) Gastrointestinal Upset cephalexin (CEPHALEXIN) Adverse Reaction (Unknown, Verified 12/31/24 08:31) NAUSEA & VOMITING Medication List - Last Reconciled 12/31/24 by Sal Zhao MD acetaminophen 1,000 mg PO Q6H PRN aspirin (Ecotrin Low Strength) 81 mg PO DAILY calcium carbonate (Calcium 600) 1,200 mg PO DAILY cholecalciferol (vitamin D3) (Vitamin D3) 50 mcg PO DAILY dulaglutide (Trulicity) 3 mg subcut FR ezetimibe 10 mg PO DAILY levothyroxine 25 mcg PO DAILY@0600 metformin 500 mg PO BIDWM metoprolol succinate ER (Toprol XL) 25 mg PO DAILY sacubitril-valsartan 49-51 mg (Entresto) 1 tab PO BID 30 days HPI Comments Details: Nhung comes for follow-up. She was recently diagnose with breast cancer after abnormal mammogram. She is awaiting oncology consultation. She comes and recent echocardiogram shows persistent LV systolic dysfunction with LVEF of 30-35%. She continues to have intermittent episodes of exertional chest tightness radiating to both arms. This is concerning symptoms. She has been taking all her medications regularly. [facility] Medical History (Updated 12/10/24 @ 10:36 by Kendy Oleary MD) Type 2 diabetes mellitus Left bundle branch block Hypothyroidism Hyperlipidemia HTN (hypertension) Surgical History Hx of colonoscopy H/O knee surgery Family History Maternal Grandmother Diabetes Father Stroke Cancer Heart problem Mother No problems noted. Social History Household Members: Spouse Housing: House Do you presently have visiting nurse or other home services: No Alcohol intake: never Patient Tobacco Use Status: Never used Tobacco Review of Systems Const Denies daytime sleepiness, Denies difficulty sleeping, Denies snoring, Denies stops breathing during sleep and Denies weakness Card Denies chest pain, Reports chest pain with activity, Denies rapid heart rate, Denies irregular heart rhythm, Denies claudication, Denies leg edema, Denies lightheadedness, Denies palpitations, Denies dyspnea, Denies dyspnea on exertion, Denies orthopnea, Denies paroxysmal nocturnal dyspnea and Denies slow heart rate Resp Denies cough, Denies dyspnea, Denies dyspnea on exertion and Denies snoring GI Reports no additional complaints, Denies hematochezia, Denies change in stool character and Denies dyspepsia Musc Denies abnormal gait, Denies muscle weakness and Denies numbness Neuro Denies abnormal gait, Denies numbness and Denies weakness Endo Denies palpitations Physical Exam Vital Signs: Last Vital Signs Pulse 71 12/31/24 08:23 BP 124/66 12/31/24 08:23 BMI result Body Mass Index 36.4 Const General: cooperative, healthy appearing, comfortable and no acute distress Orientation/consciousness: patient oriented x3 Neck Neck: Yes normal visual inspection and Yes no JVD Resp Effort & Inspection: normal respiratory effort Auscultation: clear to auscultation bilaterally, no crackles, no rales, no rhonchi and no wheezes Cardio Rate: regular rate Rhythm: regular rhythm Heart sounds: S1 normal heart sound present, S2 normal heart sound present, no gallops, no murmurs and no rubs Neuro General: patient oriented x3 Extrem General: Yes normal to inspection, No no pedal edema and No calf tenderness Psych Appearance: grossly normal Mental Status: mental status grossly normal Speech and movement: Normal speech and movement present Assessment & Plan Assessment & Plan (1) Exertional chest pain: Code(s): R07.9 - Chest pain, unspecified Category: Medical Plan: Persistent intermittent episodes of exertional chest pain with normal myocardial perfusion imaging which could suggest balanced ischemia in patient with significant risk factors for obstructive coronary artery disease as well as underlying left bundle-branch block and LV systolic dysfunction. 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 This was discussed with her. She is understands agrees. We discussed risks, benefits, alternatives to the procedure. She understands agrees. This will be scheduled in near future. Continue low-dose aspirin therapy. She has not tolerated statin therapy in the past and will have to look for alternative Delfina's significant coronary artery disease. Continue aggressive diabetes management. Will increase metoprolol to 50 mg meanwhile. (2) Cardiomyopathy: Code(s): I42.9 - Cardiomyopathy, unspecified Category: Medical Plan: Moderate to severe LV systolic dysfunction with LVEF of 30 35% with left bundle-branch block. Need to rule out ischemic etiology as above. She is currently on Entresto therapy for neurohormonal modulation. Also will uptitrate metoprolol therapy. No signs or symptoms of heart failure. Further treatment based on the findings of cardiac catheterization. If she has no significant coronary disease will refer her for evaluation for cardiac resynchronization therapy with ICD. She understands agrees. Overall treatment will be impacted by her current breast cancer diagnose and will need to take that into account. Will follow up in the clinic after cardiac catheterization in 4 weeks time. Thank you for allowing me to partake in her care Medications: New metoprolol succinate ER (Toprol XL) 50 mg PO DAILY 30 tabs 5RF Discontinued metoprolol succinate ER (Toprol XL) Discontinued Reason: Doctor's Order 25 mg PO DAILY 90 tabs 3RF R07.9 - Chest pain, unspecified Coding Level of Care Code Est Pt Level 4 (10406) Complex EM visit Add On G2211 Diagnoses Exertional chest pain R07.9 Cardiomyopathy I42.9
== END 2024-12-31 08:59 | disposition home or self-care (01) ==
LOC: HO.HCS 08:10
PROVIDERS: PCP Internal Medicine; Visit Provider Internal Medicine Cardiovascular Disease
DX: R07.9 Chest pain, unspecified (principal); I42.9 Cardiomyopathy, unspecified
CPT/HCPCS: 99214; G2211

== ENCOUNTER → 2024-12-31 08:09 | Outpatient (BNVA) | payer MEDICARE, SELFPAY | PROVIDERS: PCP Internal Medicine; Visit Provider Internal Medicine Cardiovascular Disease | DX: R07.9 Chest pain, unspecified (principal); I42.9 Cardiomyopathy, unspecified | CPT/HCPCS: 99212 ==

== ENCOUNTER 2025-01-12 09:27 | Outpatient (REF) | payer MEDICARE, SELFPAY ==
[2025-01-12 09:56] LABS: INTERNATIONAL NORM RATIO 0.9 (0.9-1.1); Prothrombin Time 11.5 SEC (11.2-13.5)
[2025-01-12 10:00] LABS: Hematocrit 41.4 % (37.0-47.0); Hemoglobin 13.9 g/dl (12.0-16.0); Mean Corpuscular HGB Conc 33.6 g/dl (31.0-35.0); Mean Corpuscular Hemoglobin 29.1 pg (27.0-33.0); Mean Corpuscular Volume 86.8 fL (80.0-98.0); NRBC Abs Auto 0.000 X10*3/uL (0.0-0.012); NRBC Pct Auto 0.0 /100WBC (0.0-0.2); Platelet Count 334 X10*3/uL (160-400); Red Blood Count 4.77 X10*6/uL (4.20-5.50); White Blood Count 8.6 X10*3/uL (4.8-10.8)
[2025-01-12 10:16] LABS: Anion Gap 13 (12-20); Blood Urea Nitrogen 18 mg/dL (9-16); Calcium 10.5 mg/dL (8.4-10.2); Carbon Dioxide 28 mmol/L (22-29); Chloride 101 mmol/L (96-108); Estimated Glomerular Filt Rate > 60; Potassium 4.2 mmol/L (3.3-5.1); Sodium 138 mmol/L (135-145)
== END 2025-01-12 09:28 | disposition home or self-care (01) ==
LOC: HO.LAB 09:27
PROVIDERS: PCP Internal Medicine; Visit Provider Internal Medicine Cardiovascular Disease
DX: I44.7 Left bundle-branch block, unspecified (principal); I42.9 Cardiomyopathy, unspecified; R07.9 Chest pain, unspecified
CPT/HCPCS: 36415; 80048; 85027; 85610

== ENCOUNTER → 2025-01-20 23:59 | Outpatient (BNV) | payer MEDICARE, SELFPAY | PROVIDERS: PCP Internal Medicine; Visit Provider Internal Medicine Cardiovascular Disease | DX: I50.20 Unspecified systolic (congestive) heart failure (principal); I25.118 Atherosclerotic heart disease of native coronary artery with other forms of angina pectoris | CPT/HCPCS: 93458; 99152 ==

== ENCOUNTER 2025-01-30 12:52 | Outpatient (AMB) | payer MEDICARE, SELFPAY ==
--- NOTE | 2025-01-30 13:12 | A.OFFVIS_ITS ---
Vital Signs 01/30/25 13:14 Height 5 ft 4 in Weight 210 lb 12.191 oz BMI 36.2 BP 110/60 Blood Pressure Location Lt brachial Position Sitting Pulse 77 Pulse Source Pulse Oximeter Intake Visit Reasons: s/p cath Intake Note: s/p cath Regional Retail Sales Manager Required: No Accompanied by: Self / Same As Patient Allergies [id number] Reductase Inhibitor Adverse Reaction (Severe, Verified 12/31/24 08:31) Gastrointestinal Upset cephalexin (CEPHALEXIN) Adverse Reaction (Unknown, Verified 12/31/24 08:31) NAUSEA & VOMITING Medication List - Last Reconciled 01/30/25 by Shine Hoskins NP acetaminophen 1,000 mg PO Q6H PRN aspirin (Ecotrin Low Strength) 81 mg PO DAILY calcium carbonate (Calcium 600) 1,200 mg PO DAILY cholecalciferol (vitamin D3) (Vitamin D3) 50 mcg PO DAILY dulaglutide (Trulicity) 3 mg subcut FR ezetimibe 10 mg PO DAILY levothyroxine 25 mcg PO DAILY@0600 metformin 500 mg PO BIDWM metoprolol succinate ER (Toprol XL) 50 mg PO DAILY sacubitril-valsartan 49-51 mg (Entresto) 1 tab PO BID 30 days HPI Comments Details: This is a 69-year-old female patient coming in for a follow-up visit status post cardiac catheterization. Patient with a history of hypertension, hyperlipidemia, diabetes, left bundle branch block, and cardiomyopathy. Given her unimproved EF on a repeat echo and reports of exertional chest tightness, patient underwent a cardiac catheterization with Dr. Ha on 01/20/2025 showing moderate disease in the RCA. Today, patient reports feeling well overall without any cardiac symptoms of exertional chest pain, shortness of breath, palpitations, dizziness, orthopnea, PND, leg edema, presyncope or syncope. Patient does note that she is under a lot of stress with recent diagnosis of breast cancer. Patient states that she has not seen anybody since the diagnosis to discuss treatment plans. Patient is otherwise reporting compliance with all her medications and states that her A1c has significantly improved on Trulicity at 6.3%. [facility] Medical History Type 2 diabetes mellitus Left bundle branch block Hypothyroidism Hyperlipidemia HTN (hypertension) Surgical History S/P cardiac cath Hx of colonoscopy H/O knee surgery Family History Maternal Grandmother Diabetes Father Stroke Cancer Heart problem Mother No problems noted. Social History Household Members: Spouse Housing: House Do you presently have visiting nurse or other home services: No Alcohol intake: never Patient Tobacco Use Status: Never used Tobacco Review of Systems Const Denies chills, Denies fatigue, Denies fever(s), Denies frequent falls, Denies weakness, Denies weight gain and Denies weight loss ENT Denies dizziness Card Denies chest pain, Denies leg edema, Denies lightheadedness, Denies palpitations, Denies dyspnea and Denies dyspnea on exertion Resp Denies cough, Denies dyspnea and Denies dyspnea on exertion GI Denies hematochezia Musc Denies abnormal gait, Denies muscle weakness, Denies numbness, Denies radiating pain into limb and Denies tingling Neuro Denies abnormal gait, Denies dizziness, Denies frequent falls, Denies numbness, Denies tingling and Denies weakness Endo Denies fatigue and Denies palpitations Physical Exam Vital Signs: Last Vital Signs Pulse 77 01/30/25 13:14 BP 110/60 01/30/25 13:14 BMI result Body Mass Index 36.2 Const General: cooperative, healthy appearing, comfortable and no acute distress Orientation/consciousness: patient oriented x3 HEENT Head: Yes normal to inspection Neck Neck: Yes normal visual inspection, Yes trachea midline and Yes supple Chest Chest palpation & inspection: normal inspection of the chest Resp Effort & Inspection: normal respiratory effort Auscultation: clear to auscultation bilaterally, no crackles, no rales, no rhonchi and no wheezes Cardio Jugular venous distension: no JVD Palpation: normal PMI Rate: regular rate Rhythm: regular rhythm Heart sounds: S1 normal heart sound present, S2 normal heart sound present, no click, no gallops, no murmurs and no rubs Peripheral pulses: Peripheral pulses 2+ throughout GI Inspection: Yes normal to inspection Palpation (GI): Soft to palpation Auscultation: normal bowel sounds Skin General skin exam: no rashes or lesions noted Neuro General: patient oriented x3 Extrem General: Yes normal to inspection, No no pedal edema and No calf tenderness Psych Appearance: grossly normal Mental Status: mental status grossly normal Speech and movement: Normal speech and movement present Assessment & Plan Assessment & Plan (1) Status post cardiac catheterization: Code(s): Z98.890 - Other specified postprocedural states Plan: 01/20/2025-cardiac catheterization with Dr. Ha showed moderate disease in the mid RCA with 60% stenosis and 70% stenosis in the RPL branch. Clinically stable and without any cardiac symptoms. Continue baby aspirin therapy. No reported signs of bleeding. Patient with a history of hyperlipidemia was previously on statins however they were discontinued due to her intolerance as she developed severe GI problems. Currently only on Zetia therapy. No recent lipid profile and therefore we will get this. Ideally, LDL goal less than 70. Patient's most recent A1c at 6.3%. Continue aggressive diabetes management, followed by endocrinology. Right wrist catheterization site is well healed. Continue with Entresto and met oprolol therapy. We will add Jardiance for cardiac protection. We will repeat an echo in next 3 months. If patient continues to have persistent low EF then may consider CARDING SUPERVISOR therapy given the left bundle branch block. Discussed in detail the signs and symptoms to watch for with heart failure. Advised low-salt diet, daily weight monitoring, and med compliance. (2) Cardiomyopathy: Code(s): I42.9 - Cardiomyopathy, unspecified Category: Medical Plan: As above. (3) CAD (coronary artery disease): Code(s): I25.10 - Atherosclerotic heart disease of [place] coronary artery without angina pectoris Category: Medical Plan: As above. Advised on heart healthy diet, regular exercise, losing weight, med compliance, and aggressive management of vascular risk factors. We will try to reach out to oncology here to see if they can see if patient is soon. Follow up in 4 months. In the interim, patient will call the office with any concerns or change in symptoms. This note was generated using voice recognition software. While every effort has been made to ensure accuracy and proper director of accounts receivable, there may be occasional errors that could affect the content or meaning of the described symptoms. Orders: Orders Lipid Panel Today I25.10 - Atherosclerotic heart disease of [place] coronary artery without angina pectoris CA echo transthoracic complete 3 Months I42.9 - Cardiomyopathy, unspecified Medications: New empagliflozin 10 mg PO DAILY 90 tabs 1RF Coding Level of Care Code Est Pt Level 4 (72961) Complex visit Add On G2211 Diagnoses Status post cardiac catheterization Z98.890 Cardiomyopathy I42.9 CAD (coronary artery disease) I25.10 Time Spent (min) 33 Comment Time spent in reviewing the chart, test results, assessment, counseling and documentation.
[2025-01-30 13:14] VITALS: BP 110/60; PULSE 77; BMI 36.2
--- OUTSIDE RECORDS SUMMARY | 2025-01-30 16:42 | XMS_ITS | Clinical Summary ---
Author Organization [employer] Address [address] [place] [address] Care Team Providers Care Oracle Etl Developer Name Role Phone Unavailable Primary Care Provider Unavailabl e Encounters Date Type Department Care Team Description 11/18/2024 9:15 AM EDT Nurse Only [facility] [address] [place] [address] Elizabeth Lawson RN Encounter for immunization from [...] of 2 - Risk 2-dose series) 1972 RSV Patients and Patients Aged 60 years or older (1 - Risk 50-74 years 1-dose series) 12/23/2003 Hepatitis B Vaccines (1 of 3 - Risk 3-dose series) 2013 COVID-19 Vaccine ( season) 2024 12/16/2022, 2021, 06/21/2021, Additional history exists DTaP/Tdap/Td Vaccines (4 - Td or Tdap) [...] patient's age to complete this topic Insurance [facility] , [address] [place] [address]
== END 2025-01-30 13:42 | disposition home or self-care (01) ==
LOC: HO.HCS 12:52
PROVIDERS: PCP Internal Medicine
DX: Z98.890 Other specified postprocedural states (principal); I42.9 Cardiomyopathy, unspecified; I25.10 Atherosclerotic heart disease of native coronary artery without angina pectoris
CPT/HCPCS: 99214; G2211

== ENCOUNTER → 2025-01-30 12:52 | Outpatient (BNVA) | payer MEDICARE, SELFPAY | PROVIDERS: PCP Internal Medicine | DX: Z01.810 Encounter for preprocedural cardiovascular examination (principal); I42.9 Cardiomyopathy, unspecified; I25.10 Atherosclerotic heart disease of native coronary artery without angina pectoris; E11.9 Type 2 diabetes mellitus without complications; E78.5 Hyperlipidemia, unspecified; I10 Essential (primary) hypertension; Z98.890 Other specified postprocedural states; Z79.899 Other long term (current) drug therapy; Z79.84 Long term (current) use of oral hypoglycemic drugs; Z79.85 Long-term (current) use of injectable non-insulin antidiabetic drugs | CPT/HCPCS: 99212 ==

== ENCOUNTER 2025-01-31 08:04 | Outpatient (REF) | payer MEDICARE, SELFPAY ==
--- OUTSIDE RECORDS SUMMARY | 2025-01-31 08:07 | XMS_ITS | Clinical Summary ---
Author Organization [employer] Address [address] [facility] [address] [facility] [address] [place] [address] Care Team Providers Care General Repairer Name Role Phone Unavailable Primary Care Provider Unavailabl e Encounters Date Type Department Care Team Description 11/18/2024 9:15 AM EDT Nurse Only [facility] [address] [place] [address] Elizabeth Lawson RN Encounter for immunization from [...] patient's age to complete this topic Insurance [facility] , [address] [place] [address]
--- OUTSIDE RECORDS SUMMARY | 2025-01-31 08:07 | XMS_ITS | Clinical Summary ---
Author Organization [facility] [address] [facility] Address [address] [address] Phone Care Team Providers Care Biology Professor Name Role Phone Sadaf Buckley MD Primary Care Provider [phone] Allergies Active Allergy Reactions Criticality Noted Date Comments Atorvastatin Low 08/10/2023 Reflux, severe Cephalexin Nausea And Vomiting 10/18/2006 Sensitivity with this medication. Sqdohaz-Spf-Ffy Reductase Inhibitors 09/14/2017 Elevated LFTS Medications nystatin-triam [...] (seven) days. 3 mL 5 5 Active blood sugar diagnostic (FreeStyle Lite Strips) test strip Use as instructedTest blood sugar once daily E11.9 100 each 3 5 Active Active Problems Problem Noted Date Diagnosed Date Breast cancer ([facility] V24, [facility] V28) 025 Overview (12/17/2024): 10.25 right invasive ductal carcinoma Osteopenia 02/20/2023 Severe obesity (BMI 35.0-35. 9 with comorbidity) ([facility] V24, [facility] V28) 03/06/2019 Lichen sclerosus 08/13/2018 Overview (08/15/2024): Type 2 diabetes mellitus with obesity 09/14/2017 Overview (11/26/2024): 11/26/24 Regulatory IMO Update Polycystic liver disease 06/20/2014 Degenerative disc disease, lumbar 05/18/2014 Compression fracture of T12 vertebra ([facility] V24, [facility] V28) 04/13/2014 Sciatica 12/03/2012 Overview (12/06/2023): Herniated L4-5 disc on left, MRI, 11/14/2012 Nuclear sclerosis 04/17/2011 Overview (12/06/2023): Noted by Dr. Oliveira on 10/21/2010 exam. Hyperlipidemia 01/04/2009 Hypertension 04/25/2005 Hypothyroidism 04/25/2005 Overview (12/06/2023): Hyperthyroidism, ablated with 22.8 mCi of iodine-131 on 12/29/2009 Encounters Date Type Department Care Team Description 2024 7:45 AM EDT Office Visit [address] [phone] Cami Dennis PA Type 2 diabetes mellitus with obesity (Primary Dx); Postablative hypothyroidism; Hyperlipidemia, unspecified hyperlipidemia type; Primary hypertension 2024 Telephone Adult Medicine [address] [phone] Haleigh Fernandez, EDGARD 2024 Telephone Breast Care [address] [phone] Lupe Lilly, EDGARD 2024 Telephone Adult [address] [phone] Sadaf Buckley MD 12/17/2024 Results Follow-Up [address] [phone] Cami Dennis PA 12/15/2024 12:34 PM EDT - 12/15/2024 11:59 PM EDT Hospital Encounter Radiology Department - [address] [phone] Abnormal mammogram Discharge Disposition: Home or Self Care 12/15/2024 12:34 PM EDT - 12/15/2024 11:59 PM EDT Hospital Encounter Radiology Department - [address] [phone] Abnormal mammogram Discharge Disposition: Home or Self Care 12/08/2024 9:49 AM EDT - 12/08/2024 11:59 PM EDT Hospital Encounter Radiology Department [address] [phone] Abnormal mammogram Discharge Disposition: Home or Self Care 12/08/2024 9:49 AM EDT - 12/08/2024 11:59 PM EDT Hospital Encounter Radiology Department - [address] [phone] Abnormal mammogram Discharge Disposition: Home or Self Care 12/08/2024 Telephone Adult Medicine South - [address] [phone] Sadaf Buckley MD 11/14/2024 7:15 AM EDT - 11/14/2024 11:59 PM EDT Hospital Encounter Radiology Department - [address] [phone] Encounter for screening mammogram for breast cancer Discharge Disposition: Home or Self Care 11/11/2024 1:15 PM EDT - 11/11/2024 11:59 PM EDT Hospital Encounter Bone Density - [address] [phone] Osteopenia, unspecified location; Postmenopausal Discharge Disposition: Home or Self Care from Last 3 Months Immunizations Immunization Administration [...] Severe obesity (BMI 35.0-35. 9 with comorbidity) ([facility] V24, [facility] V28) 03/06/2019 Polycystic liver disease 06/20/2014 Osteopenia 02/20/2023 Hypothyroidism 04/25/2005 Hyperthyroidism, ablated with 22.8 mCi of iodine-131 on 12/29/2009 Hypertension 04/25/2005 Hyperlipidemia 01/04/2009 Compression fracture of T12 vertebra ([facility] V24, [facility] V28) 04/13/2014 Degenerative disc disease, lumbar 05/18/2014 Family History Medical History Relation Name Comments Colon cancer Brother 1 Emmanuel s/p CVA age 71 Coronary artery disease Brother 2 Eleazar pace maker Coronary artery disease Brother 3 Constantine s/p 2 stents Throat cancer Brother 4 Merval and renal canc er; non-smoker Esophageal cancer Father CABG Half-Brother wyatt bypa ss Diabetes Maternal Grandmother Stroke Mother [...] 8:15 AM EST Office Visit Adult Medicine [address] [phone] Sadaf Buckley MD [address] [place] [address] 03/09/2025 9:00 AM EST Office Visit Obstetrics and Gynecology - [address] [phone] Pita Del Angel, [employer] [address] [place], [place] 03/25/2025 7:45 AM EST Office Visit Endocrinology - [address] [phone] Cami Dennis PA [address] [place], [place] Health Maintenance Due Date Last Done [...] 2 diabetes mellitus in patient with obesity ([facility] V24, [facility] V28) MICROALBUMIN CREATININE URINE RATIO Routine 12/16/2024 7:53 AM EDT Type 2 diabetes mellitus in patient with obesity ([facility] V24, [facility] V28) COMPREHENSIVE METABOLIC PANEL Routine 12/16/2024 7:53 [...] specimen / Unknown 2024 8:20 AM EDT us Cami NATHAN POINT OF CARE TEST ENTER/EDIT OR DERABLES Final Result * (ABNORMAL) Microalbumin creatinine urine ratio (12/16/2024 7:53 AM EDT) Creatinine, Urine 55.0 mg/dL LAB CHEMISTRY METHOD 12/16/2024 11:38 AM EDT [facility] Microalb, Ur 27.3 0.0 - 29.0 mg/L LAB CHEMISTRY METHOD 12/16/2024 11:38 AM EDT [facility] Microalb/Creat Ratio 50(H) <30 mg/g creat LAB CHEMISTRY METHOD 12/16/2024 11:38 AM EDT [facility] Urine Urine specimen obtained by clean catch procedure / Unknown Non-blood Collection / Unknown 12/16/2024 7:53 AM EDT 12/16/2024 7:53 AM EDT us Cami NATHAN LAB URINE ORDERABLES Final Resul t [facility] [address] [place] [address], [place] [phone] * Hemoglobin A1c (12/16/2024 7:53 AM EDT) Hemoglobin A1C 6.3 <6.5 % LAB CHEMISTRY METHOD 12/16/2024 12:29 PM [facility] Mean Bld Glu Estim. 134 mg/dL LAB CHEMISTRY METHOD 12/16/2024 12:29 PM [facility] Blood Venous blood specimen / Unknown Venipuncture / Unknown 12/16/2024 7:53 AM EDT 12/16/2024 7:53 AM EDT us Cami NATHAN LAB BLOOD ORDERABLES Final Resul t [facility] [address] [place] [address], * (ABNORMAL) Comprehensive metabolic panel (12/16/2024 7:53 AM EDT) Sodium 134 133 - 145 mmol/L LAB CHEMISTRY METHOD 12/16/2024 11:07 AM [facility] Potassium 4.2 3.5 - 5.5 mmol/L LAB CHEMISTRY METHOD 12/16/2024 11:07 AM [facility] Chloride 99 96 - 110 mmol/L LAB CHEMISTRY METHOD 12/16/2024 11:07 AM [facility] CO2 30 21 - 32 mmol/L LAB CHEMISTRY METHOD 12/16/2024 11:07 AM [facility] Anion Gap 5 3 - 11 LAB CHEMISTRY METHOD 12/16/2024 11:07 AM [facility] Glucose 111(H) 70 - 100 mg/dL LAB CHEMISTRY METHOD 12/16/2024 11:07 AM [facility] BUN 17 5 - 25 mg/dL LAB CHEMISTRY METHOD 12/16/2024 11:07 AM [facility] Creatinine 0.60 0.50 - 1.10 mg/dL LAB CHEMISTRY METHOD 12/16/2024 11:07 AM [facility] eGFR 97 >=60 mL/min/1. 73m2 LAB CHEMISTRY METHOD 12/16/2024 11:07 AM [facility] Comment:Calculation based on the Chronic Kidney Disease Epidemiology Collaboration (CKD-EPI) equation refit without adjustment for race. BUN/Creatinine Ratio 28.3 LAB CHEMISTRY METHOD 12/16/2024 11:07 AM [facility] Calcium 9.6 8.5 - 10.5 mg/dL LAB CHEMISTRY METHOD 12/16/2024 11:07 AM [facility] AST (SGOT) 16 10 - 42 unit/L LAB CHEMISTRY METHOD 12/16/2024 11:07 AM [facility] ALT (SGPT) 28 10 - 60 unit/L LAB CHEMISTRY METHOD 12/16/2024 11:07 AM [facility] Alkaline Phosphatase 94 42 - 121 unit/L LAB CHEMISTRY METHOD 12/16/2024 11:07 AM [facility] Total Protein 7.3 6.0 - 8.0 g/dL LAB CHEMISTRY METHOD 12/16/2024 11:07 AM [facility] Albumin 4.0 3.2 - 5.0 g/dL LAB CHEMISTRY METHOD 12/16/2024 11:07 AM [facility] Total Bilirubin 0.9 0.0 - 1.4 mg/dL LAB CHEMISTRY METHOD 12/16/2024 11:07 AM [facility] Blood Venous blood specimen / Unknown Venipuncture / Unknown 12/16/2024 7:53 AM EDT 12/16/2024 7:53 AM EDT us Cami NATHAN LAB BLOOD ORDERABLES Final Resul t [facility] [address] [place] [address], [place] [phone] * US Bx Breast Perc 1st Lesion [...] she prefers to see a surgeon at [facility] which is closer to her home. But she is willing to schedule a consult with the surgeon at [facility]. Surgical consultation at [facility] is being arranged. -------- ADDENDUM -------- Dictated By: Valentina Carrero Dictated Date: 12/16/2024 14:37 ET Assigned Physician: Valentina Carrero Reviewed and Electronically Signed By: Valentina Carrero Signed Date: 12/16/2024 14:44 ET Workstation ID: [id number] Transcribed By: Self Edit Transcribed Date: 12/16/2024 14:37 ET Impressions 12/15/2024 2:35 PM EDT Ultrasound-guided core biopsy of the right breast as described. RECOMMENDATION: Pathology pending for the right breast. -------- FINAL REPORT -------- Dictated By: Valentina Carrero Dictated Date: 12/15/2024 14:30 ET Assigned Physician: Valentina Carrero Reviewed and Electronically Signed By: Valentina Carrero Signed Date: 12/15/2024 14:35 ET Workstation ID: [id number] Transcribed By: Self Edit Transcribed Date: 12/15/2024 [...] Right breast ultrasound and diagnostic right breast nleqbhqni55/13/2025. Mammograms dating back to 10/25/2020. PROCEDURE: Informed [...] Signed Date: 12/15/2024 14:35 ET Workstation ID: [id number] Transcribed By: Self Edit Transcribed Date: 12/15/2024 [...] ? Greatest length of carcinoma: 8 mm [place] score: Grade 2 Glandular/tubular morphology: 3 Nuclear [...] she prefers to see a surgeon at [facility] which is closer to her home. But she is willing to schedule a consult with the surgeon at [facility]. Surgical consultation at [facility] is being arranged. -------- ADDENDUM -------- Dictated By: Valentina Carrero Dictated Date: 12/16/2024 14:37 ET Assigned Physician: Valentina Carrero Reviewed and Electronically Signed By: Valentina Carrero Signed Date: 12/16/2024 14:44 ET Workstation ID: [id number] Transcribed By: Self Edit Transcribed Date: 12/16/2024 14:37 ET Impressions 12/15/2024 2:35 PM EDT Ultrasound-guided core biopsy of the right breast as described. RECOMMENDATION: Pathology pending for the right breast. -------- FINAL REPORT -------- Dictated By: Valentina Carrero Dictated Date: 12/15/2024 14:30 ET Assigned Physician: Valentina Carrero Reviewed and Electronically Signed By: Valentina Carrero Signed Date: 12/15/2024 14:35 ET Workstation ID: [id number] Transcribed By: Self Edit Transcribed Date: 12/15/2024 [...] Right breast ultrasound and diagnostic right breast qcvsaykau79/13/2025. Mammograms dating back to 10/25/2020. PROCEDURE: Informed [...] Signed Date: 12/15/2024 14:35 ET Workstation ID: [id number] Transcribed By: Self Edit Transcribed Date: 12/15/2024 14:30 ET Sadaf Buckley MD IM BI PROCEDURES Edited Result - Final * Tissue exam (12/15/2024 1:12 PM EDT) Addendum 2 This case was sent t o [employer], [address], [place], [place], (CLIA #[id number]) for HER2 Breast studies. Their diagnosis is [...] (Full report on file) 12:01 PM EDT [facility] Addendum electronically signed by Anyi Calderon [...] positive=1-10% positive nuclei, Positive >10% positive nuclei [place]: Staining evaluation OH: Positive= >1% positive nuclei. HER2: Staining evaluation [...] tests In Vitro Diagnostic: ER clone SP1 [place], [place] clone 16 Leica Analyte specific reagents: HER2 clone [id number] [employer] 12:01 PM EDT [facility] Addendum electronically signed by Anyi Calderon [...] follow in an addendum. 12:01 PM EDT [facility] at [address] John provided second review for new malignancy. Notification sent to Dr. Carrero via secure chat on 12/16/24. 12:01 PM EDT [facility] Clinical Information cancer vs other ribbon clip lot [id number] 12:01 PM EDT [facility] Gross Description A. Breast, Right, rt 9;00 2cmfn breast/ribbon clip lot [id number] vs other: Labeled breast R, right 9:00 [...] hours): 10.5 hours KLAUDIA 12:01 PM EDT [facility] Disclaimer NOTE: The immunohistochemical tests and in situ hybridization tests were developed and their performance characteristics were determined by [facility]. They have not been cleared [...] fixed and paraffin embedded. 12:01 PM EDT [facility] Tissue Right breast structure / Unknown 12/15/2024 1:12 PM EDT 12/15/2024 4:39 PM EDT Valentina Carrero MD LAB PATHOLOGY ORDERABLES Edite d Result - Final [facility] [address] [place] [address], * HER-2 EDWIN, FISH (12/15/2024 1:12 PM [...] biopsy of right breast recommended. MAMMO LOCATION: [facility], [address] [place] [address], [address], . -------- FINAL REPORT -------- Dictated By: Melanie Alvarez Dictated Date: 12/08/2024 10:48 ET Assigned Physician: Melanie Alvarez Reviewed and Electronically Signed By: Melanie Alvarez Signed Date: 12/08/2024 10:58 ET Workstation ID: [id number] Transcribed By: Self Edit Transcribed Date: 12/08/2024 [...] biopsy of right breast recommended. MAMMO LOCATION: [facility], [address] [place] [address], [address], . -------- FINAL REPORT -------- Dictated By: Melanie Alvarez Dictated Date: 12/08/2024 10:48 ET Assigned Physician: Melanie Alvarez Reviewed and Electronically Signed By: Melanie Alvarez Signed Date: 12/08/2024 10:58 ET Workstation ID: [id number] Transcribed By: Self Edit Transcribed Date: 12/08/2024 [...] biopsy of right breast recommended. MAMMO LOCATION: [facility], [address] [place] [address], [id number], . -------- FINAL REPORT -------- Dictated By: Melanie Alvarez Dictated Date: 12/08/2024 10:48 ET Assigned Physician: Melanie Alvarez Reviewed and Electronically Signed By: Melanie Alvarez Signed Date: 12/08/2024 10:58 ET Workstation ID: [id number] Transcribed By: Self Edit Transcribed Date: 12/08/2024 [...] biopsy of right breast recommended. MAMMO LOCATION: [facility], [address] [place] [address], [address], . -------- FINAL REPORT -------- Dictated By: Melanie Alvarez Dictated Date: 12/08/2024 10:48 ET Assigned Physician: Melanie Alvarez Reviewed and Electronically Signed By: Melanie Alvarez Signed Date: 12/08/2024 10:58 ET Workstation ID: [id number] Transcribed By: Self Edit Transcribed Date: 12/08/2024 [...] Additional bilateral breast imaging recommended. Mammo Location: [facility], [address] [place] [address], [address], . -------- FINAL REPORT -------- Dictated By: Christine Valencia Dictated Date: 11/17/2024 15:50 ET Assigned Physician: Christine Valencia Reviewed and Electronically Signed By: Christine Valencia Signed Date: 11/17/2024 16:22 ET Workstation ID: [id number] Transcribed By: Self Edit Transcribed Date: 11/17/2024 [...] Additional bilateral breast imaging recommended. Mammo Location: [facility], [address] [place] [address], [address], . -------- FINAL REPORT -------- Dictated By: Christine Valencia Dictated Date: 11/17/2024 15:50 ET Assigned Physician: Christine Valencia Reviewed and Electronically Signed By: Christine Valencia Signed Date: 11/17/2024 16:22 ET Workstation ID: [id number] Transcribed By: Self Edit Transcribed Date: 11/17/2024 15:54 ET us Self Referral [facility] IMG BI PROCEDURES Final Resu lt * BD Bone Density DXA Axial Skeleton (11/11/2024 1:59 PM EDT) Anatomical Region Laterality Modality Wrist, Hip, L-spine Bone Densito metry 11/11/2024 4:10 PM EDT Impressions 11/11/2024 4:13 PM EDT Osteopenia by WHO criteria. [facility] Department of Internal Medicine recommends using National [...] alternative screening schedule based on jin Callaway., [facility] March 16, 2011 for patients [...] Signed Date: 11/11/2024 16:13 ET Workstation ID: [id number] Transcribed By: Self Edit Transcribed Date: 11/11/2024 [...] T12. IMPRESSION: Osteopenia by WHO criteria. [facility] Department of Internal Medicine recommendsusing National Osteoporosis [...] alternative screening schedule based on jin Callaway., [place] 2011 for patients with osteopenia (based on [...] Signed Date: 11/11/2024 16:13 ET Workstation ID: [id number] Transcribed By: Self Edit Transcribed Date: 11/11/2024 16:10 ET us Cristina NATHAN IMG DXA PROCEDURES Final Resu lt * (ABNORMAL) Lipid panel with reflex to direct LDL (05/16/2024 8:33 AM EDT) Cholesterol 226(H) 0 - 200 mg/dL LAB CHEMISTRY METHOD 05/16/2024 10:45 AM EDT [facility] Triglycerides 121 0 - 150 mg/dL LAB CHEMISTRY METHOD 05/16/2024 10:45 AM EDT [facility] HDL 67 >=40 mg/dL LAB CHEMISTRY METHOD 05/16/2024 10:45 AM EDT [facility] LDL Calculated 135(H) 0 - 100 mg/dL LAB CHEMISTRY METHOD 05/16/2024 10:45 AM EDT [facility] VLDL Cholesterol Brian 24.2 mg/dL LAB CHEMISTRY METHOD 05/16/2024 10:45 AM EDT [facility] Non HDL Chol. (LDL+VLDL) 159(H) <145 mg/dL LAB CHEMISTRY METHOD 05/16/2024 10:45 AM EDT [facility] Chol/HDL Ratio 3.4 0.0 - 4.4 LAB CHEMISTRY METHOD 05/16/2024 10:45 AM T [facility] Blood Venous blood specimen / Unknown Venipuncture / Unknown 05/16/2024 8:33 AM EDT 05/16/2024 8:33 AM EDT us Cami NATHAN LAB BLOOD ORDERABLES Final Resul t [facility] [address] [place] [address], * Diabetes Foot Exam (10/17/2023) [facility] Diabetes: Annual Foot Exam Abstracted Historical Provider HEALTH MAINTENANCE Final Result * Depression Screening (08/10/2023) [facility] Depression Screening Abstracted Historical Provider HEALTH MAINTENANCE Final Result * Falls Risk Assessment (02/20/2023) [facility] Falls Risk Assessment Abstracted [facility] Provider HEALTH MAINTENANCE Final Result * Colonoscopy (08/23/2017) [facility] Colonoscopy No interpretation , Abstracted Anatomical Region Laterality Modality Other [facility] Provider HEALTH MAINTENANCE Final Result * Hepatitis C Screening (08/01/2012) [facility] Hepatitis C Screening Abstracted [facility] Provider HEALTH MAINTENANCE Final Result from Last 3 Months or Most Recently Relevant to Health Maintenance Insurance [employer] [employer] Care Teams Biology Professor Relationship Specialty Start Date End Date Sadaf Buckley MD [address] [place] [address] PCP - General Internal Medicine 09/10/19
[2025-01-31 10:07] LABS: Cholesterol 190 mg/dL (<200); HDL Cholesterol 63 mg/dL (>40); Triglycerides 129 mg/dL (<150)
== END 2025-01-31 08:05 | disposition home or self-care (01) ==
LOC: HO.LAB 08:04
PROVIDERS: PCP Internal Medicine
DX: I25.10 Atherosclerotic heart disease of native coronary artery without angina pectoris (principal)
CPT/HCPCS: 36415; 80061

== ENCOUNTER → 2025-02-23 07:57 | Outpatient (BNV) | payer MEDICARE, SELFPAY | PROVIDERS: PCP Internal Medicine; Referring Provider Internal Medicine; Visit Provider Internal Medicine Medical Oncology | DX: C50.811 Malignant neoplasm of overlapping sites of right female breast (principal) | CPT/HCPCS: 99204 ==